=== PATIENT | female | born 1930 | race Caucasian/White ===

== ENCOUNTER 2016-06-12 08:30 | Emergency (ER) | payer MEDICARE, BC ==
[2016-06-12] MEDS ORDERED: Sodium Chloride 0.9% 1000 ML 1,000 ML ONE (08:53)
--- NOTE | 2016-06-12 08:57 | ERPHSYRPT ---
- History of Present Illness Time Seen by Provider: 06/12/16 08:55 Source: patient, family Exam Limitations: no limitations Patient Subjective Stated Complaint: pt reports intermittant dizziness beginning in the middle of the night-denies pain-denies n/v-denies recent illness Triage Nursing Assessment: pt pinkw arm et dry-a & o x 3-pupils reactive-moving all extremities with ease Physician History: pt reports intermittant dizziness beginning in the middle of the night-denies pain-denies n/v-denies recent illness Timing/Duration: today Activities at Onset: none Nitro Today/Relief: no nitro taken today Aspirin Treatment Today: 81 mg x 1 Associated Symptoms: denies symptoms Prior Chest Pain/Cardiac Workup: non-cardiac Allergies/Adverse Reactions: Shellfish *RETIRED-09/12/12 [Shellfish] Allergy (Intermediate, Verified 08:41) Hives meperidine HCl [From Demerol] Allergy (Verified 06/12/16 08:41) metronidazole [From Flagyl] Allergy (Verified 06/12/16 08:41) Penicillins Allergy (Verified 06/12/16 08:41) CRAB Allergy (Uncoded 06/12/16 08:41) Home Medications: Ranitidine HCl 150 mg PO BID 04/19/14 [History] Alprazolam 0.25 mg [xanAX 0.25 MG] 0.25 mg PO TIDPRN 12/19/14 [History] Amlodipine Besylate 10 mg [Norvasc 10 MG] 10 mg PO DAILY 12/19/14 [History] Aspirin EC 325 mg [Ecotrin 325 MG] 325 mg PO DAILY 12/19/14 [History] Atorvastatin Calcium [Lipitor 40Mg] 40 mg PO DAILY 12/19/14 [History] Celecoxib [Celebrex] 200 mg PO DAILY 12/19/14 [History] Diphenoxylate HCl/Atropine [Lomotil] 1 udtab PO UD 12/19/14 [History] Folic Acid 0.8 mg PO DAILY 12/19/14 [History] Hydralazine HCl 10 mg PO TID 12/19/14 [History] Lisinopril 20 mg [Zestril 20 MG] 20 mg PO DAILY 12/19/14 [History] Lisinopril/Hydrochlorothiazide [Lisinopril-Hctz 20-25 mg Tab] 1 each PO DAILY [History] Magnesium Oxide 400 mg [Mag-Ox 400] 800 mg PO BID 12/19/14 [History] Metformin HCl 1000 mg [Glucophage 1000 MG] 1,000 mg PO BID 12/19/14 [History] Montelukast Sodium 10 mg PO DAILY 12/19/14 [History] Potassium Chloride 20 Meq [Klor-Con 20 MEQ] 20 meq PO BID 12/19/14 [History] Hx Tetanus, Diphtheria Vaccination/Date Given: Yes Hx Influenza Vaccination/Date Given: No Hx Pneumococcal Vaccination/Date Given: No Immunizations Up to Date: Yes - Review of Systems Constitutional: No Fever, No Chills Eyes: No Symptoms Ears, Nose, & Throat: No Symptoms Respiratory: No Cough, No Dyspnea Cardiac: No Chest Pain, No Edema, No Syncope Abdominal/Gastrointestinal: No Abdominal Pain, No Nausea, No Vomiting, No Diarrhea Genitourinary Symptoms: No Dysuria Musculoskeletal: No Back Pain, No Neck Pain Skin: No Rash Neurological: Dizziness, No Focal Weakness, No Sensory Changes Psychological: No Symptoms Endocrine: No Symptoms All Other Systems: Reviewed and Negative - Past Medical History Pertinent Past Medical History: Yes Neurological History: No Pertinent History ENT History: No Pertinent History Cardiac History: Arrhythmia Respiratory History: CHF Endocrine Medical History: Diabetes Type II Musculoskeletal History: Arthritis GI Medical History: Diverticulitis History: No Pertinent History Psycho-Social History: Anxiety, Depression Female Reproductive Disorders: No Pertinent History Other Medical History: miasthenia gravis - Past Surgical History Past Surgical History: Yes Neuro Surgical History: No Pertinent History Cardiac: No Pertinent History Respiratory: No Pertinent History Gastrointestinal: Cholecystectomy Genitourinary: No Pertinent History Musculoskeletal: Orthopedic Surgery Female Surgical History: Hysterectomy Other Surgical History: cataracts, spinal stenosis, rotator cuff - Social History Smoking Status: Never smoker Exposure to second hand smoke: Yes Drug Use: none Patient Lives Alone: No Significant Family History: heart disease, diabetes - Female History Hx Now: No - Nursing Vital Signs Temperature: 98.1 F Temperature Source: Oral Pulse Rate: 64 Respiratory Rate: 18 Pain Intensity: 0 - Physical Exam General Appearance: no apparent distress, alert Eye Exam: PERRL/EOMI, eyes nml inspection Ears, Nose, Throat Exam: normal ENT inspection, moist mucous membranes Neck Exam: normal inspection, non-tender, supple Respiratory Exam: normal breath sounds, lungs clear, No respiratory distress Cardiovascular Exam: regular rate/rhythm, normal heart sounds, No edema Gastrointestinal/Abdomen Exam: soft, No tenderness, No mass Back Exam: normal inspection, No CVA tenderness, No vertebral tenderness Extremity Exam: normal inspection, normal range of motion Neurologic Exam: alert, oriented x 3, cooperative, normal mood/affect, nml cerebellar function, sensation nml, No motor deficits Skin Exam: normal color, warm, dry Lymphatic Exam: No adenopathy SpO2: 97 Oxygen Delivery: Room Air - Course Nursing assessment & vital signs reviewed: Yes - Radiology Exams Chest X-ray Interpretation: Reviewed by me Ordered Tests: Active Orders 24 hr Category Date Time Status EKG-ER Only STAT Care 06/12/16 08:50 Active IV Insertion STAT Care 06/12/16 08:57 Active Oxygen-ED Only NASAL CANNULA 2 lpm Care 06/12/16 08:48 Active CHEST 1 VIEW (PORTABLE) Stat Exams 06/12/16 08:49 Taken CBC W DIFF Stat Lab 06/12/16 09:04 Completed CMP Stat Lab 06/12/16 09:04 Completed Manual Differential NC Stat Lab 06/12/16 09:04 Completed NT PRO BNP Stat Lab 06/12/16 09:04 Completed TROPONIN Q3H Lab 06/12/16 09:04 Completed TROPONIN Q3H Lab 06/12/16 12:00 Ordered TROPONIN Q3H Lab 06/12/16 15:00 Ordered TROPONIN Q3H Lab 06/12/16 18:00 Ordered TROPONIN Q3H Lab 06/12/16 21:00 Ordered Medication Summary Generic Name Dose Route Start Last Admin Trade Name Freq PRN Reason Stop Dose Admin Sodium Chloride 1,000 mls @ 50 mls/hr 06/12/16 09:00 06/12/16 08:54 Sodium Chloride 0.9% 1000 Ml IV 07/12/16 08:59 50 mls/hr .Q20H XENIA Administration Discontinued Medications Generic Name Dose Route Start Last Admin Trade Name Freq PRN Reason Stop Dose Admin Sodium Chloride Confirm 06/12/16 08:53 Sodium Chloride 0.9% 1000 Ml Administered 06/12/16 08:54 Dose 1,000 mls @ ud .ROUTE .STK-MED ONE Lab/Rad Data: Laboratory Result Diagrams 06/12/16 09:04 06/12/16 09:04 Laboratory Results 06/12/16 06/12/16 06/12/16 Range/Units 09:04 09:04 09:04 WBC 8.5 (4.0-10.5) K/mm3 RBC 4.12 (4.1-5.4) M/mm3 Hgb 9.6 L (12.0-16.0) gm/dl Hct 33.3 L (35-47) % MCV 80.8 (78-100) fl MCH 23.3 L (26-32) pg MCHC 28.8 L (32-36) g/dl RDW 17.0 H (11.5-14.0) % Plt Count 471 H (150-450) K/mm3 MPV 9.9 H (6-9.5) fl Sodium 143 (136-145) mEq/L Potassium 4.0 (3.5-5.1) mEq/L Chloride 106 (98-107) mEq/L Carbon Dioxide 28.7 (21-32) mEq/L Anion Gap 12.6 (5-15) MEQ/L BUN 23 H (9-20) mg/dL Creatinine 0.81 (0.55-1.30) mg/dl Estimated GFR > 60 ML/MIN Glucose 125 H (70-110) MG/DL Calcium 9.1 (8.5-10.1) mg/dL Total Bilirubin 0.3 (0.2-1.0) mg/dL AST 16 (15-37) U/L ALT 15 (12-78) U/L Alkaline Phosphatase 82 (46-116) U/L Troponin I < 0.017 (0.000-0.056) ng/ml NT-Pro-B Natriuret Pep 371 (0-450) pg/ml Serum Total Protein 6.4 (6.4-8.2) gm/dL Albumin 3.3 L (3.4-5.0) g/dL - Progress Progress: improved Air Movement: good Blood Culture(s) Obtained: No Antibiotics given: No Counseled pt/family regarding: lab results, diagnosis, need for follow-up, rad results - Departure Time of Disposition: 10:12 Departure Disposition: Home Clinical Impression: Dizziness and giddiness, Bradyarrhythmia Condition: Stable Critical Care Time: Yes Critical Care Time(excluding separately billable procedures): 30-74 minutes Referrals: FERDINAND WHALEN [Primary Care Provider] - Additional Instructions: Please follow the instructions given to you. Please take your medication as prescribed if given. If symptoms recur or get worse, come back to the emergency room if you cannot reach your primary care physician, or call your primary care physician for an appointment. Again if your symptoms get worse, come back to the emergency room. Thanks for visiting emergency room, and let us take care of you. Prescriptions: Meclizine HCl 25 mg [Antivert 25 mg] 25 mg PO TID PRN #30 tablet PRN Reason: Dizziness
[2016-06-12] MEDS ORDERED: Sodium Chloride 0.9% 1000 ML 1,000 ML IV SCH (09:00)
[2016-06-12 09:11] LABS: Mean Cell Volume 80.8 fl (78-100); Mean Corpuscular Hemoglobin 23.3 pg (26-32); Mean Platelet Volume 9.9 fl (6-9.5); Platelet Count 471 K/mm3 (150-450); Red Blood Count 4.12 M/mm3 (4.1-5.4); White Blood Count 8.5 K/mm3 (4.0-10.5)
[2016-06-12 09:34] LABS: ALBUMIN 3.3 g/dL (3.4-5.0); ALKALINE PHOSPHATASE 82 U/L (46-116); ANION GAP 12.6 MEQ/L (5-15); BILIRUBIN,TOTAL 0.3 mg/dL (0.2-1.0); BLOOD UREA NITROGEN 23 mg/dL (9-20); CHLORIDE 106 mEq/L (98-107); Carbon Dioxide 28.7 mEq/L (21-32); Glucose 125 MG/DL (70-110); SGOT/AST 16 U/L (15-37); SGPT/ALT 15 U/L (12-78); SODIUM 143 mEq/L (136-145); Total Protein 6.4 gm/dL (6.4-8.2)
--- NOTE | 2016-06-12 10:11 | XRAY ---
Indication: Dizziness. Comparison: December 19, 2014 Portable chest adequately inflated again with scattered calcified granulomas. No focal infiltrate, consolidation, or large effusion. Heart is not enlarged for AP portable technique. New left-sided dual-lead pacemaker. Descending aorta remains tortuous. Bony thorax intact again with osteopenia and degenerative changes. Impression: Nonacute chest with chronic features. New left-sided pacemaker/leads without complications.
[2016-06-12 10:12] VITALS: O2SAT 97
[2016-06-12 10:20] LABS: ANISOCYTOSIS 1+; Eosinophil 1 % (0.00-3.0); Hypochromia 2+; Microcytosis 1+; Platelet Estimate INCREASED (NORMAL); Polychromasia 1+; Total Cells Counted 100
[2016-06-12 10:37] VITALS: BP 131/65; PULSE 79
== END 2016-06-12 10:36 | disposition home or self-care (01) ==
LOC: ED 08:30
DX: R42 Dizziness and giddiness (principal); I49.8 Other specified cardiac arrhythmias; E11.9 Type 2 diabetes mellitus without complications; I50.9 Heart failure, unspecified
CPT/HCPCS: 36000; 36415; 71010; 80053; 83880; 84484; 85025; 93005; 96360; 99283

== ENCOUNTER 2016-06-24 08:51 | Observation (INO) | payer MEDICARE, BC ==
[2016-06-24] MEDS ORDERED: Zofran 4 MG/2 ML VIAL IV ONE (08:54)
[2016-06-24] MEDS ORDERED: Hydromorphone 1 mg/ml Ampule IV ONE (08:56)
--- NOTE | 2016-06-24 09:02 | ERPHSYRPT ---
- History of Present Illness Time Seen by Provider: 06/24/16 08:54 Historian: patient, family, EMS, old records Exam Limitations: no limitations Physician History: patient presents by EMS with CC of abdominal cramps with Nausea and no BM or gas passing for 12-24 hours; usually has loose stools chronically; also some dizziness intermittantly which is old; chills but no documented fever; no travel ; uses city water; no known exposures; no changes in meds; no chest pain or sob ; hasnt taken meds or eaten since OJ at 9 pm last night; no bad foods Timing/Duration: yesterday, hour(s) (12-24), intermittent, gradual onset, worse Activities at Onset: rest Quality: cramping Abdominal Pain Onset Location: generalized abdomen Pain Radiation: no radiation Severity of Pain-Max: moderate Severity of Pain-Current: moderate (10/29) Modifying Factors: Improves With: palpation Associated Symptoms: fever/chills, loss of appetite, nausea Previous symptoms: no prior history Allergies/Adverse Reactions: Shellfish *RETIRED-09/12/12 [Shellfish] Allergy (Intermediate, Verified 09:04) Hives meperidine HCl [From Demerol] Allergy (Verified 06/24/16 09:04) metronidazole [From Flagyl] Allergy (Verified 06/24/16 09:04) Penicillins Allergy (Verified 06/24/16 09:04) CRAB Allergy (Uncoded 06/24/16 09:04) Home Medications: Alprazolam 0.25 mg [xanAX 0.25 MG] 0.25 mg PO TIDPRN 12/19/14 [History] Amlodipine Besylate 10 mg [Norvasc 10 MG] 10 mg PO DAILY 12/19/14 [History] Aspirin EC 325 mg [Ecotrin 325 MG] 325 mg PO DAILY 12/19/14 [History] Celecoxib [Celebrex] 200 mg PO DAILY 12/19/14 [History] Folic Acid 0.8 mg PO DAILY 12/19/14 [History] Lisinopril/Hydrochlorothiazide [Lisinopril-Hctz 20-25 mg Tab] 1 each PO DAILY [History] Magnesium Oxide 400 mg [Mag-Ox 400] 800 mg PO BID 12/19/14 [History] Metformin HCl 1000 mg [Glucophage 1000 MG] 1,000 mg PO BID 12/19/14 [History] Montelukast Sodium 10 mg PO DAILY 12/19/14 [History] Potassium Chloride 20 Meq [Klor-Con 20 MEQ] 20 meq PO BID 12/19/14 [History] Apixaban [Eliquis] 5 mg PO BID 06/24/16 [History] Isosorbide Mononitrate 30 mg [Imdur 30 MG] 30 mg PO DAILY 06/24/16 [History ] Hx Tetanus, Diphtheria Vaccination/Date Given: Yes Hx Influenza Vaccination/Date Given: No Hx Pneumococcal Vaccination/Date Given: No - Review of Systems Constitutional: Chills, No Night Sweats, No Weight Loss Eyes: No Symptoms Ears, Nose, & Throat: No Symptoms Respiratory: No Cough, No Cyanosis, No Dyspnea, No Wheezing Cardiac: Edema (chronic), No Chest Pain, No Palpitations, No Syncope Abdominal/Gastrointestinal: Abdominal Pain, Nausea, Constipation, No Vomiting, No Diarrhea, No Hematemesis, No Hematochezia, No Melena Genitourinary Symptoms: No Symptoms Musculoskeletal: Arthralgias, No Back Pain, No Neck Pain, No Fall, No Injury Skin: No Symptoms Neurological: Dizziness (chronic no change), No Focal Weakness, No Headache, No Seizure, No Vertigo Psychological: No Symptoms Endocrine: No Symptoms Hematologic/Lymphatic: No Symptoms Immunological/Allergic: No Symptoms - Past Medical History Pertinent Past Medical History: Yes Neurological History: No Pertinent History ENT History: No Pertinent History Cardiac History: Arrhythmia Respiratory History: CHF Endocrine Medical History: Diabetes Type II Musculoskeletal History: Arthritis GI Medical History: Diverticulitis History: No Pertinent History Psycho-Social History: Anxiety, Depression Female Reproductive Disorders: No Pertinent History Other Medical History: miasthenia gravis - Past Surgical History Past Surgical History: Yes Neuro Surgical History: No Pertinent History Cardiac: No Pertinent History Respiratory: No Pertinent History Gastrointestinal: Cholecystectomy Genitourinary: No Pertinent History Musculoskeletal: Orthopedic Surgery Female Surgical History: Hysterectomy Other Surgical History: cataracts, spinal stenosis, rotator cuff - Social History Smoking Status: Never smoker Exposure to second hand smoke: Yes Alcohol Use: None Drug Use: none Patient Lives Alone: No Significant Family History: heart disease, diabetes - Female History Hx Now: No - Nursing Vital Signs Nursing Vital Signs: Initial Vital Signs Temperature 98.8 F Temperature Source Oral Pulse Rate 73 Respiratory Rate 22 Blood Pressure [] 124/65 Pain Intensity 3 - Physical Exam General Appearance: moderate distress, alert, obese Eye Exam: PERRL/EOMI, eyes nml inspection, No photophobia Ears, Nose, Throat Exam: normal ENT inspection, TMs normal, pharynx normal, dry mucous membranes, No pharyngeal erythema Neck Exam: normal inspection, non-tender, supple, full range of motion, No meningismus, No carotid bruit, No JVD Respiratory Exam: normal breath sounds, lungs clear, airway intact, crackles/ rales (faint minimal bibasilar), No chest tenderness, No respiratory distress, No pleural rub Cardiovascular Exam: regular rate/rhythm, normal heart sounds, normal peripheral pulses, murmur (1/6 crystal early), capillary refill 2-3 sec, No friction rub Gastrointestinal/Abdomen Exam: soft, tenderness (mild - moderate; diffuse), distention (mild), guarding (active only), No normal bowel sounds (hypoactive), No mass, No pulsatile mass, No rebound, No organomegaly Pelvic Exam: deferred Rectal Exam: normal exam, normal rectal tone, No mass, No hemorrhoids, No black stool, No blood Back Exam: normal inspection, normal range of motion, No CVA tenderness, No vertebral tenderness, No rash Extremity Exam: normal inspection, normal range of motion, pelvis stable, pedal edema, No tejas's sign Neurologic Exam: alert, oriented x 3, cooperative, yard caller II-XII nml as tested, normal mood/affect, nml cerebellar function Skin Exam: normal color, warm, dry, No rash, No petechiae, No cyanosis - Course Nursing assessment & vital signs reviewed: Yes EKG Interpreted by Me: RATE (paced rhythm 60) - Radiology Exams Abdomen X-ray Interpretation: Reviewed by me, Teleradiologist Report, Other (mild ileus vs enterocolits) Ordered Tests: Active Orders 24 hr Category Date Time Status Bedrest with BRP/BSC ROUTINE Activity 06/24/16 11:35 Active Admission/Status Order ROUTINE Care 06/24/16 11:33 Active Call Admit Doctor for Orders ON ADMISSION Care 06/24/16 11:34 Active Code Status Order ROUTINE Care 06/24/16 11:33 Active EKG-ER Only STAT Care 06/24/16 08:54 Active Fall Protocol ROUTINE Care 06/24/16 11:35 Active IV Care Q6H Care 06/24/16 11:33 Active IV Insertion STAT Care 06/24/16 08:54 Active NPO (ED) STAT Care 06/24/16 08:54 Active Lance Vargas, Apply ROUTINE Care 06/24/16 11:33 Active Weight,Daily 0600 Care 06/24/16 11:33 Active Clear Liquid Diet 06/24/16 Lunch Active OBSTR/ACUTE ABDOMEN SERIES Stat Exams 06/24/16 08:55 Completed AMYLASE Stat Lab 06/24/16 09:10 Completed CBC W DIFF Stat Lab 06/24/16 09:10 Completed CMP Stat Lab 06/24/16 09:10 Completed LIPASE Stat Lab 06/24/16 09:10 Completed Lactic Acid Stat Lab 06/24/16 11:38 Completed Occult Blood,Stool Other Stat Lab 06/24/16 09:00 Completed TROPONIN Stat Lab 06/24/16 09:10 Completed Transfer Order Routine Transfer 06/24/16 11:32 Ordered Medication Summary Generic Name Dose Route Start Last Admin Trade Name Freq PRN Reason Stop Dose Admin Hydromorphone HCl 1 mg 06/24/16 11:33 Dilaudid 2 Mg Injection IV 06/29/16 11:32 Q4H PRN PRN PAIN Sodium Chloride 1,000 mls @ 100 mls/hr 06/24/16 09:00 06/24/16 09:39 Sodium Chloride 0.9% 1000 Ml IV 07/24/16 08:59 100 mls/hr .Q10H XENIA Administration Ondansetron HCl 4 mg 06/24/16 11:33 Zofran 4 Mg/2 Ml Vial IV 07/24/16 11:32 Q6H PRN PRN NAUSEA/VOMITING Discontinued Medications Generic Name Dose Route Start Last Admin Trade Name Freq PRN Reason Stop Dose Admin Hydromorphone HCl 0.5 mg 06/24/16 08:56 06/24/16 09:39 Hydromorphone 1 Mg/Ml Ampule IV 06/24/16 08:57 0.5 mg STAT ONE Administration Hydromorphone HCl Confirm 06/24/16 09:21 Hydromorphone 1 Mg/Ml Ampule Administered 06/24/16 09:22 Dose 1 mg .ROUTE .STK-MED ONE Sodium Chloride Confirm 06/24/16 09:21 Sodium Chloride 0.9% 1000 Ml Administered 06/24/16 09:22 Dose 1,000 mls @ ud .ROUTE .STK-MED ONE Ondansetron HCl 4 mg 06/24/16 08:54 06/24/16 09:39 Zofran 4 Mg/2 Ml Vial IV 06/24/16 08:55 4 mg STAT ONE Administration Ondansetron HCl Confirm 06/24/16 09:20 Zofran 4 Mg/2 Ml Vial Administered 06/24/16 09:21 Dose 4 mg .ROUTE .STK-MED ONE Lab/Rad Data: Laboratory Result Diagrams 06/24/16 09:10 06/24/16 09:10 Laboratory Results 06/24/16 06/24/16 06/24/16 Range/Units 11:38 09:10 09:10 WBC 16.4 H (4.0-10.5) K/mm3 RBC 4.35 (4.1-5.4) M/mm3 Hgb 10.1 L (12.0-16.0) gm/dl Hct 34.5 L (35-47) % MCV 79.3 (78-100) fl MCH 23.2 L (26-32) pg MCHC 29.3 L (32-36) g/dl RDW 17.1 H (11.5-14.0) % Plt Count 526 H (150-450) K/mm3 MPV 9.5 (6-9.5) fl Gran % 85.9 H (36.0-66.0) % Lymphocytes % 7.5 L (24.0-44.0) % Monocytes % 6.3 (0.0-12.0) % Eosinophils % 0.2 (0.00-5.0) % Basophils % 0.1 (0.0-0.4) % Basophils # 0.02 (0-0.4) Sodium 140 (136-145) mEq/L Potassium 4.1 (3.5-5.1) mEq/L Chloride 103 (98-107) mEq/L Carbon Dioxide 27.0 (21-32) mEq/L Anion Gap 14.0 (5-15) MEQ/L BUN 21 H (9-20) mg/dL Creatinine 0.88 (0.55-1.30) mg/dl Estimated GFR > 60 ML/MIN Glucose 155 H (70-110) MG/DL Lactic Acid 1.3 (0.4-2.0) Calcium 8.7 (8.5-10.1) mg/dL Total Bilirubin 0.4 (0.2-1.0) mg/dL AST 16 (15-37) U/L ALT 15 (12-78) U/L Alkaline Phosphatase 86 (46-116) U/L Troponin I < 0.017 (0.000-0.056) ng/ml Serum Total Protein 6.0 L (6.4-8.2) gm/dL Albumin 3.0 L (3.4-5.0) g/dL Amylase 42 (25-115) U/L Lipase 54 L (73-393) U/L Stool Occult Blood (Negative) 06/24/16 Range/Units 09:00 WBC (4.0-10.5) K/mm3 RBC (4.1-5.4) M/mm3 Hgb (12.0-16.0) gm/dl Hct (35-47) % MCV (78-100) fl MCH (26-32) pg MCHC (32-36) g/dl RDW (11.5-14.0) % Plt Count (150-450) K/mm3 MPV (6-9.5) fl Gran % (36.0-66.0) % Lymphocytes % (24.0-44.0) % Monocytes % (0.0-12.0) % Eosinophils % (0.00-5.0) % Basophils % (0.0-0.4) % Basophils # (0-0.4) Sodium (136-145) mEq/L Potassium (3.5-5.1) mEq/L Chloride (98-107) mEq/L Carbon Dioxide (21-32) mEq/L Anion Gap (5-15) MEQ/L BUN (9-20) mg/dL Creatinine (0.55-1.30) mg/dl Estimated GFR ML/MIN Glucose (70-110) MG/DL Lactic Acid (0.4-2.0) Calcium (8.5-10.1) mg/dL Total Bilirubin (0.2-1.0) mg/dL AST (15-37) U/L ALT (12-78) U/L Alkaline Phosphatase (46-116) U/L Troponin I (0.000-0.056) ng/ml Serum Total Protein (6.4-8.2) gm/dL Albumin (3.4-5.0) g/dL Amylase (25-115) U/L Lipase (73-393) U/L Stool Occult Blood POSITIVE (Negative) reviewed - Progress Progress: improved (after zofran), pain not gone completely, re-examined (after meds and xr) Progress Note: 06/24/16 09:09 IV started; meds ordered; lab and xr pending; rectal exam done- unremarkable - small amount soft brown stool; ekg and xr pending; will monitor and recheck 06/24/16 09:25 CBC shows elevated wbc of 16.4 and anemia H/H= 10.1/34.5; stool heme positive by test but appeared wnl; patient in xr 06/24/16 09:37 recheck post xr; family at bedside; no change in cramps but Nausea gone; hasn;t received the Dilaudid yet; RN getting now; xr mild ileus vs enterocolits; other labs pending; will monitor and recheck 06/24/16 10:54 patient resting quietly; labs all back; pain resolved; will contact lmd for disposition 06/24/16 11:44 lactate came back wnl at 1.3; Dr Dia consulted and accepted for admission; will order ATBs; after consulting with Pharmacy due to PCN and Metranidazole allergies elected to start Clindamycin 600 mg Q 8 h IV; patient notified of admission and results and questions answered Discussed with .: Ifeoma (consulted and will admit) Will see patient in: hospital (observation) Counseled pt/family regarding: lab results, diagnosis, need for follow-up, rad results - Departure Time of Disposition: 11:46 Departure Disposition: Observation Clinical Impression: Nausea, Pedal edema, Epigastric pain, Abdominal pain, Acute diverticulitis Condition: Serious Critical Care Time: No Referrals: FERDINAND DIA [Primary Care Provider] - Instructions: Abdominal Pain-Adult
[2016-06-24] MEDS ORDERED: Zofran 4 MG/2 ML VIAL ONE (09:20)
[2016-06-24 09:21] LABS: BASOPHIL % 0.1 % (0.0-0.4); Eosinophil % 0.2 % (0.00-5.0); Granulocytes % 85.9 % (36.0-66.0); Lymphocytes % 7.5 % (24.0-44.0); Mean Cell Volume 79.3 fl (78-100); Mean Corpuscular Hemoglobin 23.2 pg (26-32); Mean Platelet Volume 9.5 fl (6-9.5); Monocytes % 6.3 % (0.0-12.0); Platelet Count 526 K/mm3 (150-450); Red Blood Count 4.35 M/mm3 (4.1-5.4); Red Cell Distribution Width 17.1 % (11.5-14.0); White Blood Count 16.4 K/mm3 (4.0-10.5)
[2016-06-24] MEDS ORDERED: Hydromorphone 1 mg/ml Ampule ONE (09:21)
[2016-06-24] MEDS ORDERED: Sodium Chloride 0.9% 1000 ML 1,000 ML ONE (09:21)
--- NOTE | 2016-06-24 09:38 | XRAY ---
Indication: Abdominal pain, cramping, and nausea. Comparison: Chest exam June 12, 2016 2 views of the abdomen demonstrates minimal scattered small and large bowel tiny air-fluid leveling, ileus versus enterocolitis. No focal bowel dilatation, obstruction, or free air. Hepatic/splenic calcified granulomas. Remaining solid organs unremarkable. Osseous structures demonstrates osteopenia, degenerative changes, scoliosis, and lower lumbar fusion surgery with intact spinal hardware. Single frontal chest again demonstrates scattered calcified granulomas without focal infiltrate, consolidation, or large effusion. Heart is not enlarged and demonstrates stable left-sided dual-lead pacemaker. Vascularity normal. Descending aorta remains tortuous. Bony thorax intact again with osteopenia and degenerative changes. Impression: 1. Small and large bowel tiny air-fluid leveling, ileus versus enterocolitis. No obstruction. 2. Stable nonacute one view chest with chronic features.
[2016-06-24 09:39] LABS: ALKALINE PHOSPHATASE 86 U/L (46-116); BILIRUBIN,TOTAL 0.4 mg/dL (0.2-1.0); BLOOD UREA NITROGEN 21 mg/dL (9-20); CHLORIDE 103 mEq/L (98-107); Glucose 155 MG/DL (70-110); LIPASE 54 U/L (73-393); Potassium 4.1 mEq/L (3.5-5.1); SGOT/AST 16 U/L (15-37); SGPT/ALT 15 U/L (12-78); SODIUM 140 mEq/L (136-145)
[2016-06-24] MEDS: Sodium Chloride 0.9% 1000 ML 1,000 ML IV SCH ×2 (09:39→21:08)
[2016-06-24 09:40] LABS: TROPONIN < 0.017 ng/ml (0.000-0.056)
[2016-06-24] MEDS ORDERED: DILAUDID 2 MG INJECTION IV PRN (11:33)
[2016-06-24] MEDS ORDERED: Zofran 4 MG/2 ML VIAL IV PRN (11:33)
[2016-06-24] MEDS: CLINDAMYCIN-D5W 600 MG/50 ML*** 50 ML IV SCH ×2 (13:03→21:08)
[2016-06-24] MEDS ORDERED: Cleocin Phosphate IV 600 MG/4 ML IV SCH (14:00)
[2016-06-24] MEDS ORDERED: xanAX 0.25 MG PO PRN (17:15)
[2016-06-24] MEDS: Ecotrin 325 MG PO SCH (17:36)
[2016-06-24] MEDS: Imdur 30 MG PO SCH (17:36)
[2016-06-24] MEDS: Zestril 20 MG PO SCH (17:37)
[2016-06-24] MEDS: hydroDIURIL 25 MG PO SCH (17:37)
[2016-06-24] MEDS: NORVASC 5 MG PO SCH (17:37)
--- NOTE | 2016-06-24 18:59 | PCM.HP ---
History of Present Illness - Chief Complaint Chief Complaint: Abdominal pain History of Present Illness: is a 85 year old female pt of mine from [facility] who started having abdominal discomfort yesterday. She had been to see me in office in the morning for unrelated issues and felt worse all day and night and came to ER today. She is c/o LLQ pain but soreness that is diffuse. She has not been eating well and was not able to pass gas or stool since yesterday. She tried to vomit but was unable to. XR was suspicious for ileus or enterocolitis. She does have a history of diverticulitis. Pt is allergic to several antibiotics so was started on IV clindamycin. This afternoon she tells me she is feeling much better than she did this morning. 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, seeing neurology in f/u soon) Psychological: Anxiety, Depression, No Suicidal Ideations All Other Systems: Reviewed and Negative Medications & Allergies Home Medications: Home Medication List Alprazolam 0.25 mg [xanAX 0.25 MG] 0.25 mg PO TIDPRN 12/19/14 [History Confirmed 06/24/16] Amlodipine Besylate 10 mg [Norvasc 10 MG] 10 mg PO DAILY 12/19/14 [History Confirmed 06/24/16] Aspirin EC 325 mg [Ecotrin 325 MG] 325 mg PO DAILY 12/19/14 [History Confirmed 06/24/16] Celecoxib [Celebrex] 200 mg PO DAILY 12/19/14 [History Confirmed 06/24/16] Folic Acid 0.8 mg PO DAILY 12/19/14 [History Confirmed 06/24/16] Lisinopril/Hydrochlorothiazide [Lisinopril-Hctz 20-25 mg Tab] 1 each PO DAILY [History Confirmed 06/24/16] Magnesium Oxide 400 mg [Mag-Ox 400] 800 mg PO BID 12/19/14 [History Confirmed 06/24/16] Metformin HCl 1000 mg [Glucophage 1000 MG] 1,000 mg PO BID 12/19/14 [History Confirmed 06/24/16] Montelukast Sodium 10 mg PO DAILY 12/19/14 [History Confirmed 06/24/16] Potassium Chloride 20 Meq [Klor-Con 20 MEQ] 20 meq PO BID 12/19/14 [History Confirmed 06/24/16] Apixaban [Eliquis] 5 mg PO BID 06/24/16 [History Confirmed 06/24/16] Isosorbide Mononitrate 30 mg [Imdur 30 MG] 30 mg PO DAILY 06/24/16 [ History Confirmed 06/24/16] Omeprazole 20 MG [Prilosec 20 mg] 20 mg PO DAILY 06/24/16 [History Confirmed 08/05] Allergies/Adverse Reactions: Allergies Allergy/AdvReac Type Severity Reaction Status Date / Time Shellfish *RETIRED-09/12/12 Allergy Intermediate Hives Verified 06/24/16 09:04 [Shellfish] meperidine HCl [From Demerol] Allergy Verified 06/24/16 09:04 metronidazole [From Flagyl] Allergy Verified 06/24/16 09:04 Penicillins Allergy Verified 06/24/16 09:04 hydralazine AdvReac Verified 06/24/16 12:23 CRAB Allergy Uncoded 06/24/16 09:04 - Past Medical History Past Medical History: Yes Neurological History: No Pertinent History ENT History: Cataracts Cardiac History: Arrhythmia Respiratory History: CHF Endocrine Medical History: Diabetes Type II Musculoskelatal History: Arthritis GI Medical History: Diverticulitis History: No Pertinent History Pyscho-Social History: Anxiety, Depression Reproductive Disorders: Fibroids Comment: miasthenia gravis - Female History Are you now?: No - Past Surgical History Past Surgical History: Yes Neuro Surgical History: No Pertinent History Cardiac History: Pacemaker Respiratory Surgery: No Pertinent History GI Surgical History: Appendectomy, Cholecystectomy Genitourinary Surgical Hx: No Pertinent History Musculskeletal Surgical Hx: Orthopedic Surgery Female Surgical History: Hysterectomy Other Surgical History: spinal stenosis surgery, rotator cuff right arm - Social History Smoking Status: Never smoker Exposure to second hand smoke: No Alcohol: Rarely Drug Use: none Significant Family History: heart disease, diabetes - Physical Exam Vital Signs: Vital Signs - 24 hr Temp Pulse Resp BP Pulse Ox 06/24/16 16:00 99.8 F 69 17 146/67 96 06/24/16 12:10 98.2 F 76 18 155/66 95 06/24/16 11:07 73 22 124/65 96 06/24/16 10:29 68 22 95 06/24/16 09:46 60 18 118/59 96 06/24/16 08:52 98.8 F 65 22 137/63 96 General Appearance: no apparent distress Neurologic Exam: alert, oriented x 3 Eye Exam: eyes nml inspection Neck Exam: normal inspection, non-tender, No lymphadenopathy Respiratory Exam: normal breath sounds, lungs clear, No crackles/rales, No rhonchi, No wheezing, No stridor Cardiovascular Exam: regular rate/rhythm, normal heart sounds, No murmur Gastrointestinal/Abdomen Exam: soft, normal bowel sounds, tenderness (diffuse, more marked in LLQ), No distention, No mass, No guarding, No rebound Back Exam: normal inspection, No CVA tenderness Extremity Exam: swelling (Trace pretibial edema bilat) Skin Exam: normal color, warm, dry Assessment/Plan (1) Acute diverticulitis Current Visit: Yes Status: Acute Assessment & Plan: IV clindamycin. Pt is feeling better and does not appear acutely ill. Lactate wnl. Code(s): K57.92 - DVTRCLI OF INTEST, PART UNSP, W/O PERF OR ABSCESS W/O BLEED (2) Abdominal pain Current Visit: Yes Status: Acute Assessment & Plan: Question of ileus. Also divertiulitis as above. Code(s): R10.9 - UNSPECIFIED ABDOMINAL PAIN (3) Dizziness and giddiness Current Visit: No Status: Chronic Assessment & Plan: Has been treated by neurology for BPPV with some success in the past; pt to f/u with them. Code(s): R42 - DIZZINESS AND GIDDINESS (4) Hypertension Current Visit: Yes Status: Chronic Assessment & Plan: Well controlled on home meds. Code(s): I10 - ESSENTIAL (PRIMARY) HYPERTENSION (5) DVT prophylaxis Current Visit: Yes Status: Acute Assessment & Plan: on eliquis and aspirin. Code(s): DKN0368 -
[2016-06-24] MEDS: TYLENOL EXTRA STRENGTH 500 MG PO PRN (21:08)
[2016-06-24] MEDS: ELIQUIS PO SCH (21:08)
[2016-06-25] MEDS: CLINDAMYCIN-D5W 600 MG/50 ML*** 50 ML IV SCH ×3 (05:22→21:33)
[2016-06-25] MEDS: hydroDIURIL 25 MG PO SCH (09:32)
[2016-06-25] MEDS: Zestril 20 MG PO SCH (09:32)
[2016-06-25] MEDS: Ecotrin 325 MG PO SCH (09:32)
[2016-06-25] MEDS: Imdur 30 MG PO SCH (09:32)
[2016-06-25] MEDS: NORVASC 5 MG PO SCH (09:32)
[2016-06-25] MEDS: ELIQUIS PO SCH ×2 (09:32→21:33)
[2016-06-25] MEDS: Sodium Chloride 0.9% 1000 ML 1,000 ML IV SCH (09:33)
[2016-06-25] MEDS ORDERED: NON-FORMULARY ITEM (Lisinopril/Hydrochlorothiazide [Lisinopril-Hctz 20-25 Mg Tab] 1 EACH) PO SCH (10:00)
[2016-06-25] MEDS ORDERED: NON-FORMULARY ITEM (Amlodipine Besylate 10 Mg [Norvasc 10 Mg] 10 MG) PO SCH (10:00)
--- NOTE | 2016-06-25 10:00 | PCM.NOTE ---
Date and Time: 06/25/16956 Subjective Assessment: She reports she is having more gas pain in her left lower quadrant than she was last night. She reports she had a stool yesterday that was the consistancy of applesauce which is normal for her and denies seeing any blood in her stool. She feels like her pain is under control. She has been taking a clear liquid diet without any problems. - Review of Systems Constitutional: No Symptoms Eyes: No Symptoms Ears, Nose, & Throat: No Symptoms Respiratory: No Symptoms Cardiac: No Symptoms Abdominal/Gastrointestinal: Abdominal Pain, Diarrhea, Other (chronic diarrhea), No Nausea, No Vomiting, No Constipation, No Hematochezia Genitourinary Symptoms: No Symptoms Musculoskeletal: No Symptoms Skin: No Symptoms Neurological: No Symptoms Objective Exam General Appearance: no apparent distress, alert Neurologic Exam: alert, cooperative, normal mood/affect Skin Exam: normal color, warm, dry, No rash Respiratory Exam: normal breath sounds, lungs clear, No prolonged expirations, No crackles/rales, No rhonchi, No wheezing Cardiovascular Exam: regular rate/rhythm, normal heart sounds, No murmur, No friction rub, No gallop Gastrointestinal/Abdomen Exam: soft, normal bowel sounds, No tenderness, No distention, No mass, No guarding Extremity Exam: other (trace edema bilat, no c/c) OBJECTIVE DATA Vital Signs: Vital Signs - 24 hr Temp Pulse Resp BP Pulse Ox 06/25/16 07:15 98.1 F 64 20 111/58 96 06/25/16 03:53 98.5 F 70 20 129/59 92 L 06/24/16 23:43 98.6 F 68 20 103/52 91 L 06/24/16 20:00 98.7 F 61 20 132/63 92 L 06/24/16 16:00 99.8 F 69 17 146/67 96 06/24/16 12:10 98.2 F 76 18 155/66 95 06/24/16 11:07 73 22 124/65 96 06/24/16 10:29 68 22 95 Pain Assessment - Last Documented Pain Intensity 0 Pain Scale Used 0-10 Pain Scale Intake and Output: Intake & Output 06/23/16 06/24/16 06/25/16 06/26/16 06:59 06:59 06:59 06:59 Intake Total 2426 240 Output Total 1800 Balance 626 240 Weight 90.804 kg Lab Results: Accuchecks Date 06/25/16 Time 07:30 Accucheck Value: 97 Multi-Disciplinary Progress Notes: Multi-Disciplinary Progress Notes 06/24/16 12:39 Pharmacy Note by Brant Pitt Patient has allergies to Penicillin and Flagyl. Cleocin, Levaquin and Invanz are possible alternatives for diverticulitis. Initialized on 06/24/16 12:39 - END OF NOTE Assessment/Plan (1) Acute diverticulitis Current Visit: Yes Status: Acute Assessment & Plan: Continue IV clindamycin and plan to change to oral clindamycin when she is discharged. Recheck cbc in AM. Code(s): K57.92 - DVTRCLI OF INTEST, PART UNSP, W/O PERF OR ABSCESS W/O BLEED (2) Hypertension Current Visit: Yes Status: Chronic Assessment & Plan: Currently well controlled. Continue home medication. Code(s): I10 - ESSENTIAL (PRIMARY) HYPERTENSION (3) DVT prophylaxis Current Visit: Yes Status: Acute Assessment & Plan: She is on eliquis and apsirin. Code(s): [id number] -
[2016-06-25] MEDS: TYLENOL EXTRA STRENGTH 500 MG PO PRN ×2 (16:51→21:33)
[2016-06-26 05:38] LABS: Mean Cell Volume 79.5 fl (78-100); Mean Platelet Volume 9.9 fl (6-9.5); Platelet Count 474 K/mm3 (150-450); Red Cell Distribution Width 16.9 % (11.5-14.0); White Blood Count 9.7 K/mm3 (4.0-10.5)
[2016-06-26 05:39] LABS: Mean Corpuscular Hemoglobin 22.8 pg (26-32)
[2016-06-26] MEDS: CLINDAMYCIN-D5W 600 MG/50 ML*** 50 ML IV SCH (05:50)
[2016-06-26 07:06] LABS: Total Cells Counted 100
[2016-06-26 07:07] LABS: ANISOCYTOSIS 1+; Hypochromia 1+; Poikilocytosis 1+
[2016-06-26 07:08] LABS: Platelet Estimate NORMAL (NORMAL); Spherocyte 1+
[2016-06-26] MEDS: hydroDIURIL 25 MG PO SCH (09:25)
[2016-06-26] MEDS: Ecotrin 325 MG PO SCH ×2 (09:25→10:33)
[2016-06-26] MEDS: Imdur 30 MG PO SCH (09:25)
[2016-06-26] MEDS: Zestril 20 MG PO SCH (09:25)
[2016-06-26] MEDS: ELIQUIS PO SCH ×2 (09:25→10:33)
[2016-06-26] MEDS: NORVASC 5 MG PO SCH (09:25)
--- NOTE | 2016-06-26 10:27 | PCM.DCORD ---
- Discharge Discharge Date: 06/26/16 Disposition: Home, Self-Care Condition: Good Prescriptions: New Clindamycin HCl 300 mg PO QID #24 capsule Continue Folic Acid 0.8 mg PO DAILY Aspirin EC 325 mg [Ecotrin 325 MG] 325 mg PO DAILY Potassium Chloride 20 Meq [Klor-Con 20 MEQ] 20 meq PO BID Montelukast Sodium 10 mg PO DAILY Metformin HCl 1000 mg [Glucophage 1000 MG] 1,000 mg PO BID Magnesium Oxide 400 mg [Mag-Ox 400] 800 mg PO BID Lisinopril/Hydrochlorothiazide [Lisinopril-Hctz 20-25 mg Tab] 1 each PO DAILY Celecoxib [Celebrex] 200 mg PO DAILY Amlodipine Besylate 10 mg [Norvasc 10 MG] 10 mg PO DAILY Alprazolam 0.25 mg [xanAX 0.25 MG] 0.25 mg PO TIDPRN Apixaban [Eliquis] 5 mg PO BID Isosorbide Mononitrate 30 mg [Imdur 30 MG] 30 mg PO DAILY Omeprazole 20 MG [Prilosec 20 mg] 20 mg PO DAILY Instructions: Diverticulitis Follow up with: FERDINAND WHALEN [Primary Care Provider] -
[2016-06-26 11:15] VITALS: BP 140/72; PULSE 68; O2SAT 96
--- NOTE | 2016-06-27 09:25 | DS ---
DISCHARGE DIAGNOSIS: 1. ACUTE DIVERTICULITIS. 2. HYPERTENSION. 3. DIZZINESS. 4. ANEMIA. DISCHARGE PHYSICAL EXAM: VITALS: Temperature current 98, temperature maximum 98.4, heart rate 60-71, respiratory rate 18-20, O2 saturation 92-97% on room air, BP 120-159/67-74. GENERAL: The patient is a pleasant, talkative lady lying in bed in no acute distress. CVS: She has a regular rate and rhythm. No murmurs, gallops, or rubs are appreciated. CHEST: Clear to auscultation bilaterally. No crackles or wheezes. ABDOMEN: Soft with mild left lower quadrant tenderness. No guarding. No rigidity. Normal bowel sounds. EXTREMITIES: Trace edema bilaterally. No clubbing or cyanosis. No rashes. SKIN: Warm, dry, and intact. HOSPITAL COURSE: 1. Acute diverticulitis. She was started on clindamycin 600 mg IV q 8 h and has shown improvement in her symptoms of abdominal pain. Will plan to discharge her on clindamycin 300 mg PO qid for 8 more days. Her WBC on admission was 16,400 on 06/24/16 and was 9700 on 06/26/16. She recently had a colonoscopy 09/19/[address] Vu that revealed severe diverticulosis. The patient reports she has been able to eat and have a bowel movement without any problems. 2. Anemia. Her Hgb on the 3rd was 10.1. At time of discharge, it was 8.7. I have asked them to draw iron levels and vitamin B12 level that will need followed up as an outpatient. Her stool was heme-positive. Again, she has had that recent colonoscopy and she is on Eliquis for blood thinners. 3. Hypertension. Her BP was well controlled. She does have some dizziness at home. She was instructed to try to always use her walker when she gets up. Her BP looked good here. However, PCP may want to adjust her medications if she continues to have dizziness. The nurses checked orthostatics and they were normal. 4. Dizziness as above. DISPOSITION: Patient was discharged to home in fair condition. She is to resume all her home medications and also to take clindamycin 300 mg PO qid for 8 days and follow-up with Dr. Dia this coming week.
== END 2016-06-26 11:50 | disposition home or self-care (01) ==
LOC: ED 08:51 → MED SURG 12:00
PROVIDERS: ADMIT Family Medicine; ATTEND Family Medicine
DX: K57.92 Diverticulitis of intestine, part unspecified, without perforation or abscess without bleeding (principal); I10 Essential (primary) hypertension; R42 Dizziness and giddiness; D64.9 Anemia, unspecified; F41.8 Other specified anxiety disorders; E11.9 Type 2 diabetes mellitus without complications; M19.90 Unspecified osteoarthritis, unspecified site; Z79.01 Long term (current) use of anticoagulants; Z79.899 Other long term (current) drug therapy
CPT/HCPCS: 36415; 74022; 80053; 82150; 82272; 82607; 82728; 82962; 83036; 83540; 83550; 83605; 83690; 83921; 84484; 85025; 93005; 96360; 96361; 96374; 96375; 99284; 99285; G0378; J1170; J2405

== ENCOUNTER 2017-10-11 08:07 | Day surgery (SDC) | payer MEDICARE, BC ==
[2017-10-11] MEDS ORDERED: DIPRIVAN 200 MG/20 ML IV ONE (08:08)
[2017-10-11] MEDS ORDERED: Xylocaine 1% Vial 30 ML PF IJ ONE (08:08)
[2017-10-11] MEDS ORDERED: Marcaine 0.5% SDV 10 ML IJ ONE (08:08)
[2017-10-11 09:03] LABS: Hematocrit 50.8 % (35-47); Hemoglobin 16.8 gm/dl (12.0-16.0); Mean Cell Volume 94.1 fl (78-100); Mean Corpuscular Hemoglobin 31.1 pg (26-32); Mean Corpuscular Hgb Concent. 33.1 g/dl (32-36); Mean Platelet Volume 10.7 fl (6-9.5); Platelet Count 296 K/mm3 (150-450); Red Cell Distribution Width 14.9 % (11.5-14.0); White Blood Count 8.1 K/mm3 (4.0-10.5)
[2017-10-11 09:04] LABS: INR 0.98 (0.8-3.0)
[2017-10-11 09:07] LABS: PTT 33.1 SECONDS (25.3-37.0)
[2017-10-11] MEDS ORDERED: Lactated Ringers 1,000 ML IV ONE (09:55)
--- NOTE | 2017-10-12 08:26 | OP ---
DATE OF PROCEDURE: 10/11/2017 0933 SURGEON: Lori Rios D.O. PREOPERATIVE DIAGNOSIS: Degenerative lumbar spine disease, spondylosis, low back pain. POSTOPERATIVE DIAGNOSIS: Degenerative lumbar spine disease, spondylosis, low back pain. PROCEDURE PERFORMED: Right L5, L4, L3 medial branch block under fluoroscopic guidance. DESCRIPTION OF THE PROCEDURE: The patient was taken to the operating room and placed in the prone position on the table. Skin at the injection site was prepped and draped in sterile fashion. Under fluoroscopy, bony anatomy of the targeted injection site was visualized. Induction agent was given as per anesthesia while vital signs were monitored. The local anesthetic agent used is 9 cc 1% lidocaine. Under fluoroscopic guidance, a #20 gauge standard spinal needle was advanced into the target medial branch through the oblique approach. The medication used for this nerve block is 0.5 cc of mix of preservative-free 1% lidocaine plus 0.5% Marcaine to each injection site. After the needle was being removed, the skin was cleansed with alcohol and then a bandage was applied. No complications or adverse consequences were observed. The patient was returned to the holding area until stabilized before discharge to home. Preoperative pain level is 4 out of 10 and postoperative pain level is 0 out of 10. The patient will be followed up within ten days after the injection for re-evaluation.
== END 2017-10-11 10:20 | disposition home or self-care (01) ==
LOC: SDC-PAIN 08:07
PROVIDERS: ATTEND Internal Medicine
DX: M54.5 Low back pain (principal); M51.36 Other intervertebral disc degeneration, lumbar region; M46.96 Unspecified inflammatory spondylopathy, lumbar region; Z79.891 Long term (current) use of opiate analgesic
CPT/HCPCS: 36415; 64493; 64494; 64495; 72020; 77003; 82962; 85027; 85610; 85730; J2001; J2704

== ENCOUNTER 2017-10-15 10:31 | Emergency (ER) | payer MEDICARE, BC ==
[2017-10-15] MEDS ORDERED: TORAdol 30 mg Injection IM ONE (12:03)
--- NOTE | 2017-10-15 12:09 | ERPHSYRPT ---
- History of Present Illness Time Seen by Provider: 10/15/17 11:03 Source: patient, family Exam Limitations: no limitations Patient Subjective Stated Complaint: pt reports laying flat on 10/11/17 for a procedure involving an injection to her spine during which she had some discomfort to the right breast. states she took it easy then mowed the lawn and used the weed eater monday. reports increased pain to the right breast and rib area on the right side. reports pain is increased when lifting her right arm or reaching across her body. denies any injury. Triage Nursing Assessment: pt is aox3, pupils perrl, resps easy and non labored , radial pulses strong and equal. pt is afebrile. skin is pink warm dry. bilat pedal edema noted, that is chronic. no obvious injury appreciated to the right breast or rib area. pt sensation is intact to upper extremities. cap refill <3 seconds. pt has some limited ROM to the upper right extremity due to pain with movement. Physician History: patient developed right breast and rib pain immediately after a procedure where she was laying on her right side and breast for an extended period of time. no sob; no CP except when she palpates the rib or takes a deep breath; has continued for several days and worse this am;no hemoptosis or other trauma Timing/Duration: today (worse), day(s) (5-7) Severity: moderate Modifying Factors: Improves With: movement Associated Symptoms: denies symptoms Allergies/Adverse Reactions: Shellfish *RETIRED-09/12/12 [Shellfish] Allergy (Intermediate, Verified 11:08) Hives meperidine HCl [From Demerol] Allergy (Verified 10/15/17 11:08) metronidazole [From Flagyl] Allergy (Verified 10/15/17 11:08) Penicillins Allergy (Verified 10/15/17 11:08) hydralazine Adverse Reaction (Verified 10/15/17 11:08) CRAB Allergy (Uncoded 10/15/17 11:08) Home Medications: Amlodipine Besylate 10 mg [Norvasc 10 MG] 10 mg PO DAILY 12/19/14 [History] Aspirin EC 325 mg [Ecotrin 325 MG] 325 mg PO DAILY 12/19/14 [History] Celecoxib [Celebrex] 200 mg PO DAILY 12/19/14 [History] Folic Acid 0.8 mg PO DAILY 12/19/14 [History] Lisinopril/Hydrochlorothiazide [Lisinopril-Hctz 20-25 mg Tab] 1 each PO DAILY [History] Magnesium Oxide 400 mg [Mag-Ox 400] 800 mg PO BID 12/19/14 [History] Metformin HCl 1000 mg [Glucophage 1000 MG] 1,000 mg PO BID 12/19/14 [History] Montelukast Sodium 10 mg PO DAILY 12/19/14 [History] Potassium Chloride 20 Meq [Klor-Con 20 MEQ] 20 meq PO BID 12/19/14 [History] Apixaban [Eliquis 5 mg Tablet] 5 mg PO BID 06/24/16 [History] Isosorbide Mononitrate 30 mg [Imdur 30 MG] 30 mg PO DAILY 06/24/16 [History ] Omeprazole 20 MG [Prilosec 20 mg] 20 mg PO DAILY 06/24/16 [History] Alprazolam 0.25 mg [xanAX 0.25 MG] 0.25 mg PO TID PRN 08/22/17 [History] Buspirone HCl 5 mg [Buspar 5 mg] 5 mg PO BID 08/22/17 [History] Diphenoxylate HCl/Atropine [Diphenoxylate-Atrop 2.5-0.025] 1 each PO DAILY PRN PRN 08/22/17 [History] Gatifloxacin/Prednisolone [Prednisolone 1%-Gatiflox 0.5%] 1 drop OP TID PRN 08/06 [History] Iron Polysac/Iron Heme/FA/B12 [Hemetab Iron Supplement Tablet] 1 each PO DAILY 08/22/17 [History] Simvastatin 40 mg [Zocor 40 mg] 40 mg PO UD 08/22/17 [History] Hx Tetanus, Diphtheria Vaccination/Date Given: Yes Hx Influenza Vaccination/Date Given: Yes Hx Pneumococcal Vaccination/Date Given: No Immunizations Up to Date: Yes - Review of Systems Constitutional: No Symptoms Eyes: No Symptoms Ears, Nose, & Throat: No Symptoms Respiratory: No Cough, No Dyspnea, No Wheezing Cardiac: Chest Pain (right anteroior ribs), Edema (chronic), No Palpitations, No Syncope, No Orthopnea Abdominal/Gastrointestinal: No Abdominal Pain, No Nausea, No Vomiting, No Diarrhea Genitourinary Symptoms: No Symptoms Musculoskeletal: No Symptoms Skin: No Symptoms Neurological: No Symptoms Psychological: No Symptoms Endocrine: No Symptoms Hematologic/Lymphatic: No Symptoms Immunological/Allergic: No Symptoms - Past Medical History Pertinent Past Medical History: Yes Neurological History: No Pertinent History ENT History: Cataracts Cardiac History: Arrhythmia, High Cholesterol, Hypertension Respiratory History: No Pertinent History Endocrine Medical History: Diabetes Type II Musculoskeletal History: Arthritis, Degenerative Disk Disease GI Medical History: Diverticulitis History: No Pertinent History Psycho-Social History: Anxiety, Depression Female Reproductive Disorders: Fibroids Other Medical History: Pacemaker - Past Surgical History Past Surgical History: Yes Neuro Surgical History: No Pertinent History Cardiac: Pacemaker Respiratory: No Pertinent History Gastrointestinal: Appendectomy, Cholecystectomy Genitourinary: No Pertinent History Musculoskeletal: Orthopedic Surgery Female Surgical History: Hysterectomy Other Surgical History: spinal stenosis surgery, rotator cuff right arm - Social History Smoking Status: Never smoker Exposure to second hand smoke: No Alcohol Use: None Drug Use: none Patient Lives Alone: Yes Significant Family History: heart disease, diabetes - Female History Hx Now: No - Nursing Vital Signs Nursing Vital Signs: Initial Vital Signs Temperature 99.2 F 10/15/17 10:55 Pulse Rate 66 10/15/17 10:55 Respiratory Rate 18 10/15/17 10:55 Blood Pressure 170/74 10/15/17 10:55 O2 Sat by Pulse Oximetry 96 10/15/17 10:55 Pain Scale Pain Intensity 6 - Physical Exam General Appearance: mild distress, alert, obese Eye Exam: PERRL/EOMI, eyes nml inspection Ears, Nose, Throat Exam: normal ENT inspection, TMs normal, pharynx normal, moist mucous membranes Neck Exam: normal inspection, non-tender, supple, full range of motion, No JVD Respiratory Exam: normal breath sounds, chest tenderness (anterior lower right ribs costochondral margin), lungs clear, airway intact, No respiratory distress , No rhonchi, No wheezing, No pleural rub, No other (no crepitus) Cardiovascular Exam: regular rate/rhythm, normal heart sounds, normal peripheral pulses, capillary refill 2-3 sec, edema, No murmur Gastrointestinal/Abdomen Exam: soft, normal bowel sounds, No tenderness, No guarding, No rebound Pelvic Exam: not done Rectal Exam: deferred Back Exam: normal inspection, normal range of motion, No CVA tenderness Extremity Exam: normal inspection, normal range of motion, pedal edema, No tejas 's sign Neurologic Exam: alert, oriented x 3, cooperative, tie carrier II-XII nml as tested, normal mood/affect, nml cerebellar function, nml station & gait Skin Exam: normal color, warm, dry, No rash SpO2 Interpretation: normal SpO2: 96 Oxygen Delivery: Room Air - Course Nursing assessment & vital signs reviewed: Yes - Radiology Exams Right Ribs X-ray Interpretation: Interpreted by me, No Fracture, Other (DJD) Chest X-ray Interpretation: Interpreted by me, No Fracture, No Pneumonia, No Pneumothorax, Nml Heart Size, No Infiltrates, Other (pacemaker) Ordered Tests: Active Orders 24 hr Category Date Time Status Pulse Oximetry (ED) STAT Care 10/15/17 11:09 Active Re-Check Vital Signs STAT Care 10/15/17 11:09 Active CHEST 2 VIEWS (PA AND LAT) Stat Exams 10/15/17 11:09 Taken RIBS UNILATERAL Stat Exams 10/15/17 11:10 Taken Medication Summary Discontinued Medications Generic Name Dose Route Start Last Admin Trade Name Lambert PRN Reason Stop Dose Admin Ketorolac Tromethamine 30 mg 10/15/17 12:03 10/15/17 12:23 Toradol 30 Mg Injection IM 10/15/17 12:04 30 mg STAT ONE Administration Ketorolac Tromethamine Confirm 10/15/17 12:19 Toradol 30 Mg Injection Administered 10/15/17 12:20 Dose 30 mg .ROUTE .STK-MED ONE - Progress Progress: improved (after meds), re-examined (after xr) Progress Note: 10/15/17 12:08 xr neg for fracture; DJD; discussed treatmetn plan; will give pain meds; instructions given 10/15/17 12:53 good releif with meds; instructions given Counseled pt/family regarding: diagnosis, need for follow-up, rad results - Departure Time of Disposition: 12:53 Departure Disposition: Home Clinical Impression: right costochondral pain Condition: Stable Critical Care Time: No Referrals: MELVA HENSON MD [Primary Care Provider] - Instructions: Bruised Rib Additional Instructions: ice; Follow-up with family doctor as directed. Call for appointment. Return if any problems. If you smoke please stop. Call or follow up with your family doctor for assistance if you need it to stop. Please wear your seatbelt when driving. Have a nice day. Thank you for allowing us to participate in your care today. :o) Dr Zeyad Reddy Prescriptions: Naproxen Sodium [Anaprox Ds] 550 mg PO Q8HPRN PRN #14 tablet PRN Reason: Pain
[2017-10-15] MEDS ORDERED: TORAdol 30 mg Injection ONE (12:19)
[2017-10-15 12:33] VITALS: BP 141/89; PULSE 62
[2017-10-15 12:55] VITALS: O2SAT 96
--- NOTE | 2017-10-15 21:08 | XRAY ---
Indication: Right rib pain. Comparison: None 2 views of the right ribs demonstrates age-related osteopenia, multilevel degenerative spondylosis, and pulmonary calcified granulomas. No acute fracture or suspicious bony lesions.
--- NOTE | 2017-10-15 21:08 | XRAY ---
Indication: Right rib pain. Comparison: June 24, 2016. PA/lateral chest remains clear again with a few incidental calcified granulomas. Heart is not enlarged again with left-sided dual-lead pacemaker. Descending aorta remains tortuous. Bony thorax intact again with osteopenia and degenerative changes. Impression: Stable nonacute chest with chronic features.
== END 2017-10-15 13:01 | disposition home or self-care (01) ==
LOC: ED 10:31
DX: R07.1 Chest pain on breathing (principal); N64.4 Mastodynia; R07.81 Pleurodynia; Z79.82 Long term (current) use of aspirin; Z79.899 Other long term (current) drug therapy
CPT/HCPCS: 71046; 71100; 96372; 99283; J1885

== ENCOUNTER 2018-02-13 09:39 | Inpatient (IN) | payer MEDICARE, BC ==
[2018-02-13] MEDS ORDERED: Zofran 4 MG/2 ML VIAL IV ONE (10:03)
[2018-02-13] MEDS ORDERED: MORPHINE SULFATE 4 MG INJ IV ONE (10:06)
[2018-02-13] MEDS ORDERED: Zofran 4 MG/2 ML VIAL ONE (10:09)
[2018-02-13] MEDS ORDERED: MORPHINE SULFATE 4 MG INJ ONE (10:10)
[2018-02-13] MEDS: Sodium Chloride 0.9% 1000 ML 1,000 ML IV SCH ×2 (10:12→20:18)
--- NOTE | 2018-02-13 10:33 | ERPHSYRPT ---
- History of Present Illness Time Seen by Provider: 02/13/18 09:55 Historian: patient Exam Limitations: clinical condition Patient Subjective Stated Complaint: Pt states "I have belly pain and I am having diarrhea." Triage Nursing Assessment: Pt alert and oriented X 3, skin pwd. Pt arrived via Medic 1. 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 PT moaning. Pt in no apparent respiratory distress. PT abdomen tender in all quadrants to light palpation. Physician History: PATIENT WITH A HISTORY OF DIVERTICULITIS, TYPE 2 DIABETES, HYPERTENSION, AND CHRONIC DIARRHEA COMPLAINS OF GENERALIZED ABDOMINAL PAIN FOR 3 WEEKS ASSOCIATED WITH NAUSEA. DENIES EMESIS, FEVER, URINARY SYMPTOMS. STATES PAIN SCALE 8/10. Timing/Duration: week(s) Activities at Onset: none Quality: sharpness, stabbing Abdominal Pain Onset Location: generalized abdomen Pain Radiation: no radiation Severity of Pain-Max: moderate Severity of Pain-Current: moderate Modifying Factors: Improves With: movement Associated Symptoms: nausea Previous symptoms: same symptoms as today Allergies/Adverse Reactions: Shellfish *RETIRED-09/12/12 [Shellfish] Allergy (Intermediate, Verified 11:08) Hives meperidine HCl [From Demerol] Allergy (Verified 10/15/17 11:08) metronidazole [From Flagyl] Allergy (Verified 10/15/17 11:08) Penicillins Allergy (Verified 10/15/17 11:08) hydralazine Adverse Reaction (Verified 10/15/17 11:08) CRAB Allergy (Uncoded 10/15/17 11:08) Home Medications: Amlodipine Besylate 10 mg [Norvasc 10 MG] 10 mg PO DAILY 12/19/14 [History] Aspirin EC 325 mg [Ecotrin 325 MG] 325 mg PO DAILY 12/19/14 [History] Celecoxib [Celebrex] 200 mg PO DAILY 12/19/14 [History] Folic Acid 0.8 mg PO DAILY 12/19/14 [History] Lisinopril/Hydrochlorothiazide [Lisinopril-Hctz 20-25 mg Tab] 1 each PO DAILY [History] Magnesium Oxide 400 mg [Mag-Ox 400] 800 mg PO BID 12/19/14 [History] Metformin HCl 1000 mg [Glucophage 1000 MG] 1,000 mg PO BID 12/19/14 [History] Montelukast Sodium 10 mg PO DAILY 12/19/14 [History] Potassium Chloride 20 Meq [Klor-Con 20 MEQ] 20 meq PO BID 12/19/14 [History] Apixaban [Eliquis 5 mg Tablet] 5 mg PO BID 06/24/16 [History] Isosorbide Mononitrate 30 mg [Imdur 30 MG] 30 mg PO DAILY 06/24/16 [History ] Omeprazole 20 MG [Prilosec 20 mg] 20 mg PO DAILY 06/24/16 [History] Alprazolam 0.25 mg [xanAX 0.25 MG] 0.25 mg PO TID PRN 08/22/17 [History] Buspirone HCl 5 mg [Buspar 5 mg] 5 mg PO BID 08/22/17 [History] Diphenoxylate HCl/Atropine [Diphenoxylate-Atrop 2.5-0.025] 1 each PO DAILY PRN PRN 08/22/17 [History] Gatifloxacin/Prednisolone [Prednisolone 1%-Gatiflox 0.5%] 1 drop OP TID PRN 08/06 [History] Iron Polysac/Iron Heme/FA/B12 [Hemetab Iron Supplement Tablet] 1 each PO DAILY 08/22/17 [History] Simvastatin 40 mg [Zocor 40 mg] 40 mg PO UD 08/22/17 [History] Hx Tetanus, Diphtheria Vaccination/Date Given: No Hx Influenza Vaccination/Date Given: No Hx Pneumococcal Vaccination/Date Given: No Immunizations Up to Date: Yes - Review of Systems Constitutional: No Fever, No Chills Eyes: No Symptoms Ears, Nose, & Throat: No Symptoms Respiratory: No Symptoms, No Cough, No Dyspnea Cardiac: No Symptoms, No Chest Pain, No Edema, No Syncope Abdominal/Gastrointestinal: Abdominal Pain, Diarrhea, No Nausea, No Vomiting Genitourinary Symptoms: No Symptoms, No Dysuria Musculoskeletal: No Symptoms, No Back Pain, No Neck Pain Skin: No Rash Neurological: No Dizziness, No Focal Weakness, No Sensory Changes Psychological: No Symptoms Endocrine: No Symptoms All Other Systems: Reviewed and Negative - Past Medical History Pertinent Past Medical History: Yes Neurological History: No Pertinent History ENT History: Cataracts Cardiac History: Arrhythmia, High Cholesterol, Hypertension Respiratory History: No Pertinent History Endocrine Medical History: Diabetes Type II Musculoskeletal History: Arthritis, Degenerative Disk Disease GI Medical History: Diverticulitis History: No Pertinent History Psycho-Social History: Anxiety, Depression Female Reproductive Disorders: Fibroids Other Medical History: Pacemaker - Past Surgical History Past Surgical History: Yes Neuro Surgical History: No Pertinent History Cardiac: Pacemaker Respiratory: No Pertinent History Gastrointestinal: Appendectomy, Cholecystectomy Genitourinary: No Pertinent History Musculoskeletal: Orthopedic Surgery Female Surgical History: Hysterectomy Other Surgical History: spinal stenosis surgery, rotator cuff right arm - Social History Smoking Status: Never smoker Exposure to second hand smoke: Yes Alcohol Use: None Drug Use: none Patient Lives Alone: Yes Significant Family History: heart disease, diabetes - Female History Hx Now: No - Nursing Vital Signs Nursing Vital Signs: Initial Vital Signs Temperature 98.2 F 02/13/18 09:43 Pulse Rate 76 02/13/18 09:43 Respiratory Rate 18 02/13/18 09:43 Blood Pressure 133/72 02/13/18 09:43 O2 Sat by Pulse Oximetry 96 02/13/18 09:43 Pain Scale Pain Intensity 2 - Physical Exam General Appearance: mild distress, alert Eye Exam: PERRL/EOMI, eyes nml inspection Ears, Nose, Throat Exam: normal ENT inspection, pharynx normal, moist mucous membranes Neck Exam: normal inspection, non-tender, supple, full range of motion Respiratory Exam: normal breath sounds, lungs clear, No respiratory distress Cardiovascular Exam: regular rate/rhythm, normal heart sounds Gastrointestinal/Abdomen Exam: soft, normal bowel sounds, other (HYPERACTIVE BOWEL SOUNDS, BILATERAL LOWER QUAD, SUPRAPUBIC TENDERNESS), No tenderness, No mass Rectal Exam: normal exam Back Exam: normal inspection, normal range of motion, No CVA tenderness, No vertebral tenderness Extremity Exam: normal inspection, normal range of motion, pelvis stable Neurologic Exam: alert, oriented x 3, cooperative, normal mood/affect, nml cerebellar function, sensation nml, No motor deficits Skin Exam: normal color, warm, dry SpO2: 96 Oxygen Delivery: Room Air - CT Exams Abdomen/Pelvis CT Interpretation: Discussed w/radiologist (MINIMAL SIGMOID DIVERTICULITIS) Ordered Tests: Active Orders 24 hr Category Date Time Status IV Insertion STAT Care 02/13/18 10:03 Active Oxygen-ED Only NASAL CANNULA 2 lpm Care 02/13/18 10:05 Active ABDOMEN AND PELVIS W/0 CONTRAS [CT] Stat Exams 02/13/18 10:04 Completed AMYLASE Stat Lab 02/13/18 10:20 Completed BLOOD CULTURE Stat Lab 02/13/18 10:30 Received CBC W DIFF Stat Lab 02/13/18 10:03 Completed CMP Stat Lab 02/13/18 10:20 Completed CULTURE,URINE Stat Lab 02/13/18 10:04 Received LIPASE Stat Lab 02/13/18 10:20 Completed Occult Blood,Stool Other Stat Lab 02/13/18 10:30 Completed UA W/ MICROSCOPIC Stat Lab 02/13/18 10:04 Completed Medication Summary Generic Name Dose Route Start Last Admin Trade Name Freq PRN Reason Stop Dose Admin Sodium Chloride 1,000 mls @ 100 mls/hr 02/13/18 10:15 02/13/18 10:12 Sodium Chloride 0.9% 1000 Ml IV 03/15/18 10:14 100 mls/hr .Q10H XENIA Administration Discontinued Medications Generic Name Dose Route Start Last Admin Trade Name Freq PRN Reason Stop Dose Admin Clindamycin HCl/Dextrose 600 mg in 50 mls @ 100 mls/hr 02/13/18 11:22 11:54 Clindamycin-D5w 600 Mg/50 Ml IV 02/13/18 11:51 100 mls/hr STAT STA 100 mls/hr Administration Clindamycin HCl/Dextrose Confirm 02/13/18 11:47 Clindamycin-D5w 600 Mg/50 Ml Administered 02/13/18 11:48 Dose 600 mg in 50 mls @ ud IV .STK-MED ONE Morphine Sulfate 4 mg 02/13/18 10:06 02/13/18 10:12 Morphine Sulfate 4 Mg Inj IV 02/13/18 10:07 4 mg STAT ONE Administration Morphine Sulfate Confirm 02/13/18 10:10 Morphine Sulfate 4 Mg Inj Administered 02/13/18 10:11 Dose 4 mg .ROUTE .STK-MED ONE Ondansetron HCl 4 mg 02/13/18 10:03 02/13/18 10:12 Zofran 4 Mg/2 Ml Vial IV 02/13/18 10:04 4 mg STAT ONE Administration Ondansetron HCl Confirm 02/13/18 10:09 Zofran 4 Mg/2 Ml Vial Administered 02/13/18 10:10 Dose 4 mg .ROUTE .STK-MED ONE Lab/Rad Data: Laboratory Result Diagrams 02/13/18 10:03 02/13/18 10:20 Laboratory Results 02/13/18 02/13/18 02/13/18 Range/Units 10:30 10:20 10:04 WBC (4.0-10.5) K/mm3 RBC (4.1-5.4) M/mm3 Hgb (12.0-16.0) gm/dl Hct (35-47) % MCV (78-100) fl MCH (26-32) pg MCHC (32-36) g/dl RDW (11.5-14.0) % Plt Count (150-450) K/mm3 MPV (6-9.5) fl Gran % (36.0-66.0) % Eos # (Auto) (0-0.5) Absolute Lymphs (auto) (1.0-4.6) Absolute Monos (auto) (0.0-1.3) Lymphocytes % (24.0-44.0) % Monocytes % (0.0-12.0) % Eosinophils % (0.00-5.0) % Basophils % (0.0-0.4) % Absolute Granulocytes (1.4-6.9) Basophils # (0-0.4) Sodium 136 L (137-145) mmol/L Potassium 4.0 (3.5-5.1) mmol/L Chloride 100 (98-107) mmol/L Carbon Dioxide 27 (22-30) mmol/L Anion Gap 13.4 (5-15) MEQ/L BUN 36 H (7-17) mg/dL Creatinine 0.82 (0.52-1.04) mg/dL Estimated GFR > 60.0 ML/MIN Glucose 178 H (74-106) mg/dL Calcium 9.7 (8.4-10.2) mg/dL Total Bilirubin 0.80 (0.2-1.3) mg/dL AST 21 (14-36) U/L ALT 23 (0-35) U/L Alkaline Phosphatase 85 (38-126) U/L Serum Total Protein 6.1 L (6.3-8.2) g/dL Albumin 3.7 (3.5-5.0) g/dL Amylase 127 H (30-110) U/L Lipase 45 (23-300) U/L Ur Collection Type CATH Urine Color YELLOW (YELLOW) Urine Appearance CLOUDY (CLEAR) Urine pH 5.0 (5-6) Ur Specific [place] 1.015 (1.005-1.025) Urine Protein 50 (Negative) Urine Ketones SMALL (NEGATIVE) Urine Blood 250 (0-5) Soham/ul Urine Nitrite NEGATIVE (NEGATIVE) Urine Bilirubin NEGATIVE (NEGATIVE) Urine Urobilinogen NORMAL (0-1) mg/dL Ur Leukocyte Esterase TRACE (NEGATIVE) Urine Microscopic RBC 25-50 (0-2) /HPF Urine Microscopic WBC 10-15 (0-5) /HPF Ur Epithelial Cells RARE (FEW) /HPF Urine Bacteria MANY (NEGATIVE) /HPF Urine Culture Reflexed YES (NO) Urine Glucose NEGATIVE (NEGATIVE) mg/dL Stool Occult Blood POSITIVE (Negative) 02/13/18 Range/Units 10:03 WBC 20.2 H (4.0-10.5) K/mm3 RBC 5.70 H (4.1-5.4) M/mm3 Hgb 18.3 H (12.0-16.0) gm/dl Hct 53.8 H (35-47) % MCV 94.4 (78-100) fl MCH 32.1 H (26-32) pg MCHC 34.0 (32-36) g/dl RDW 17.5 H (11.5-14.0) % Plt Count 262 (150-450) K/mm3 MPV 10.5 H (6-9.5) fl Gran % 93.4 H (36.0-66.0) % Eos # (Auto) 0.01 (0-0.5) Absolute Lymphs (auto) 0.71 L (1.0-4.6) Absolute Monos (auto) 0.60 (0.0-1.3) Lymphocytes % 3.5 L (24.0-44.0) % Monocytes % 3.0 (0.0-12.0) % Eosinophils % 0.0 (0.00-5.0) % Basophils % 0.1 (0.0-0.4) % Absolute Granulocytes 18.82 H (1.4-6.9) Basophils # 0.02 (0-0.4) Sodium (137-145) mmol/L Potassium (3.5-5.1) mmol/L Chloride (98-107) mmol/L Carbon Dioxide (22-30) mmol/L Anion Gap (5-15) MEQ/L BUN (7-17) mg/dL Creatinine (0.52-1.04) mg/dL Estimated GFR ML/MIN Glucose (74-106) mg/dL Calcium (8.4-10.2) mg/dL Total Bilirubin (0.2-1.3) mg/dL AST (14-36) U/L ALT (0-35) U/L Alkaline Phosphatase (38-126) U/L Serum Total Protein (6.3-8.2) g/dL Albumin (3.5-5.0) g/dL Amylase (30-110) U/L Lipase (23-300) U/L Ur Collection Type Urine Color (YELLOW) Urine Appearance (CLEAR) Urine pH (5-6) Ur Specific [place] (1.005-1.025) Urine Protein (Negative) Urine Ketones (NEGATIVE) Urine Blood (0-5) Soham/ul Urine Nitrite (NEGATIVE) Urine Bilirubin (NEGATIVE) Urine Urobilinogen (0-1) mg/dL Ur Leukocyte Esterase (NEGATIVE) Urine Microscopic RBC (0-2) /HPF Urine Microscopic WBC (0-5) /HPF Ur Epithelial Cells (FEW) /HPF Urine Bacteria (NEGATIVE) /HPF Urine Culture Reflexed (NO) Urine Glucose (NEGATIVE) mg/dL Stool Occult Blood (Negative) - Progress Progress: improved, pain not gone completely Progress Note: 02/13/18 10:35 ADMINISTERED IV NORMAL SALINE 100ML/HR, ZOFRAN 4MG, MORPHINE 4MG, AFTER 2 SETS OF BLOOD CULTURES ADMINISTERED CLINDAMYCIN 600MG IVPB 02/13/18 11:25 Discussed with : Ifeoma (DISCUSSED WITH DR WHALEN AT 1145 FOR OBSERVATION) - Departure Time of Disposition: 12:24 Departure Disposition: Observation Clinical Impression: ACUTE SIGMOID DIVERTICULITIS Condition: Stable Critical Care Time: No Referrals: FERDINAND WHALEN [Primary Care Provider] -
[2018-02-13 10:37] LABS: BASOPHIL % 0.1 % (0.0-0.4); Basophil (Absolute #) 0.02 (0-0.4); Eosinophil (Absolute #) 0.01 (0-0.5); Granulocyte Absolute (ANC) 18.82 (1.4-6.9); Granulocytes % 93.4 % (36.0-66.0); Hematocrit 53.8 % (35-47); Hemoglobin 18.3 gm/dl (12.0-16.0); Lymphocyte (Absolute #) 0.71 (1.0-4.6); Lymphocytes % 3.5 % (24.0-44.0); Mean Cell Volume 94.4 fl (78-100); Mean Corpuscular Hemoglobin 32.1 pg (26-32); Mean Platelet Volume 10.5 fl (6-9.5); Platelet Count 262 K/mm3 (150-450); Red Cell Distribution Width 17.5 % (11.5-14.0); White Blood Count 20.2 K/mm3 (4.0-10.5)
[2018-02-13 10:57] LABS: ALBUMIN 3.7 g/dL (3.5-5.0); ALKALINE PHOSPHATASE 85 U/L (38-126); AMYLASE 127 U/L (30-110); ANION GAP 13.4 MEQ/L (5-15); BLOOD UREA NITROGEN 36 mg/dL (7-17); CHLORIDE 100 mmol/L (98-107); Calcium 9.7 mg/dL (8.4-10.2); Carbon Dioxide 27 mmol/L (22-30); Creatinine 1 0.82 mg/dL (0.52-1.04); Glucose 178 mg/dL (74-106); LIPASE 45 U/L (23-300); SGOT/AST 21 U/L (14-36); SGPT/ALT 23 U/L (0-35); SODIUM 136 mmol/L (137-145); Total Protein 6.1 g/dL (6.3-8.2)
--- NOTE | 2018-02-13 11:18 | XRAY ---
Indication: Lower abdominal pain. Chronic diarrhea. Multiple contiguous axial images obtained through the abdomen and pelvis without contrast as ordered. Comparison: July 27, 2015. Lung bases again demonstrates minimal bibasilar fibrosis/scarring. No infiltrate or effusion. Heart is not enlarged. Stable left hemidiaphragm elevation. Noncontrasted stomach and bowel loops appear nonobstructed. There remains mild diffuse scattered colonic fecal debris throughout, less than before. Also stable scattered colonic diverticulosis with now minimal sigmoid diverticulitis. New tiny right colic free fluid but no walled off fluid collection or free air. Again cholecystectomy and hysterectomy. Stable punctate right adrenal calcifications, 1.4 cm inferior right renal cyst, and calcified splenic granulomas. Remaining liver, pancreas, spleen, adrenal glands, kidneys, ureters, and bladder appear unremarkable for noncontrast exam. There remains mild aortoiliac calcifications without AAA. Osseous structures again demonstrates multilevel degenerative spondylosis, scoliosis, and L4-L5 fusion surgery with intact spinal hardware. Impression: 1. New mild sigmoid diverticulitis. Also new right colic free fluid that may be related. No walled off fluid collection or free air. 2. Again fecal stasis without obstruction, less than before. 3. Stable right adrenal punctate calcifications and right renal cyst. CT DI 21.96
[2018-02-13] MEDS ORDERED: CLINDAMYCIN-D5W 600 MG/50 ML*** 600 MG/50 ML BAG IV STA (11:22)
[2018-02-13 11:46] LABS: Appearance CLOUDY (CLEAR); Bilirubin NEGATIVE (NEGATIVE); Blood 250 Ery/ul (0-5); Glucose NEGATIVE (NEGATIVE); Ketones SMALL (NEGATIVE); Leukocyte Esterase TRACE (NEGATIVE); Nitrite NEGATIVE (NEGATIVE); Protein,Urine Dip 50 (Negative); Specific Gravity 1.015 (1.005-1.025); Urobilinogen NORMAL mg/dL (0-1)
[2018-02-13] MEDS ORDERED: CLINDAMYCIN-D5W 600 MG/50 ML*** 600 MG/50 ML BAG IV ONE (11:47)
[2018-02-13 11:59] LABS: Bacteria MANY /HPF (NEGATIVE); Epithelial Cells RARE /HPF (FEW); RBC 25-50 /HPF (0-2)
[2018-02-13] MEDS ORDERED: Zofran 4 MG/2 ML VIAL IV PRN (12:13)
[2018-02-13] MEDS ORDERED: Sodium Chloride 0.9% 1000 ML 1,000 ML IV SCH (12:15)
[2018-02-13] MEDS ORDERED: Zestril 10 MG PO STA (12:18)
[2018-02-13] MEDS ORDERED: SODIUM SULAMYD EYE DROPS 15 ML OP PRN (14:40)
[2018-02-13] MEDS ORDERED: NON-FORMULARY ITEM (Simvastatin 40 Mg [Zocor 40 Mg] 40 MG) PO SCH (14:45)
[2018-02-13] MEDS ORDERED: GATIFLOXACIN OP SCH (14:45)
[2018-02-13] MEDS ORDERED: PREDNISOLONE OP SCH (14:45)
[2018-02-13] MEDS ORDERED: MEDICATION INTERVENTION MC SCH ×2 (15:00)
[2018-02-13] MEDS ORDERED: PYRIDOSTIGMINE BROMIDE 30 MG PO SCH (15:00)
--- NOTE | 2018-02-13 15:17 | PCM.HP ---
History of Present Illness - Chief Complaint Chief Complaint: ACUTE SIGMOID DIVERTICULITIS History of Present Illness: is a 87 year old female pt of mine from [facility] who has had several months of diarrhea and abdominal pain. It worsened this week and she came to the ER today. Was c/o 8/10 lower abd pain. Diarrhea 3x in a night, waking the pt. Also c/o a sore on her bottom as she can't clean herself well after a bowel movement. no fever. not tolerating po well. no vomiting. no minerva blood in the stool. In ER she was found to have divertiulitis wiht WBC of 20,000. She was admitted on IV clindamycin as she is allergic to penicillins an dflagyl. She states that now her pain is 4/10. - Review of Systems Cardiac: Edema (chronic LE edema) Abdominal/Gastrointestinal: Abdominal Pain, Diarrhea Psychological: Other (in recent weeks feeling worse emotionally with illness), No Suicidal Ideations All Other Systems: Reviewed and Negative Medications & Allergies Home Medications: Home Medication List Amlodipine Besylate 10 mg [Norvasc 10 MG] 10 mg PO DAILY 12/19/14 [History Confirmed 02/13/18] Folic Acid 0.8 mg PO DAILY 12/19/14 [History Confirmed 02/13/18] Lisinopril/Hydrochlorothiazide [Lisinopril-Hctz 20-25 mg Tab] 1 each PO DAILY [History Confirmed 02/13/18] Magnesium Oxide 400 mg [Mag-Ox 400] 800 mg PO BID 12/19/14 [History Confirmed 02/13/18] Metformin HCl 1000 mg [Glucophage 1000 MG] 1,000 mg PO BID 12/19/14 [History Confirmed 02/13/18] Montelukast Sodium 10 mg PO DAILY 12/19/14 [History Confirmed 02/13/18] Potassium Chloride 20 Meq [Klor-Con 20 MEQ] 20 meq PO BID 12/19/14 [History Confirmed 02/13/18] Apixaban [Eliquis 5 mg Tablet] 5 mg PO BID 06/24/16 [History Confirmed ] Isosorbide Mononitrate 30 mg [Imdur 30 MG] 30 mg PO DAILY 06/24/16 [ History Confirmed 02/13/18] Omeprazole 20 MG [Prilosec 20 mg] 20 mg PO DAILY 06/24/16 [History Confirmed ] Alprazolam 0.25 mg [xanAX 0.25 MG] 0.25 mg PO TID PRN 08/22/17 [History Confirmed 02/13/18] Diphenoxylate HCl/Atropine [Diphenoxylate-Atrop 2.5-0.025] 1 each PO DAILY PRN PRN 08/22/17 [History Confirmed 02/13/18] Gatifloxacin/Prednisolone [Prednisolone 1%-Gatiflox 0.5%] 1 drop OP TID PRN 08/06 [History Confirmed 02/13/18] Simvastatin 40 mg [Zocor 40 mg] 40 mg PO UD 08/22/17 [History Confirmed 02/13/18 ] Aspirin 81 mg PO DAILY 02/13/18 [History Confirmed 02/13/18] Calcium Citrate/Vitamin D3 [Citracal + D [place]] 1 tab PO DAILY 02/13/18 [ History Confirmed 02/13/18] Cholecalciferol (Vitamin D3) [Vitamin D3] 1,000 unit PO DAILY 02/13/18 [History Confirmed 02/13/18] Folic Acid 1 tab PO DAILY 02/13/18 [History Confirmed 02/13/18] Folic Acid 1 mg [Folate 1 mg] 2 tab PO DAILY 02/13/18 [History Confirmed 02/13/18] Mycophenolate Mofetil 1,000 mg PO BID 02/13/18 [History Confirmed 02/13/18] Prednisone 20 mg [Deltasone 20 mg] 20 mg PO BID 02/13/18 [History Confirmed 02/13/18] Pyridostigmine [place] 30 mg PO TID 02/13/18 [History Confirmed 02/13/18] Sulfacetamide Sodium Ophth [Sodium Sulamyd Eye Drops 15 ml] 1 drop OP BID PRN 02/13/18 [History Confirmed 02/13/18] Thiamine HCl 1 tab PO DAILY 02/13/18 [History Confirmed 02/13/18] Ubidecarenone [Co Q-10] 2 cap PO BID 02/13/18 [History Confirmed 02/13/18] Allergies/Adverse Reactions: Allergies Allergy/AdvReac Type Severity Reaction Status Date / Time Shellfish *RETIRED-09/12/12 Allergy Intermediate Hives Verified 10/15/17 11:08 [Shellfish] meperidine HCl [From Demerol] Allergy Verified 10/15/17 11:08 metronidazole [From Flagyl] Allergy Verified 10/15/17 11:08 Penicillins Allergy Verified 10/15/17 11:08 hydralazine AdvReac Verified 10/15/17 11:08 CRAB Allergy Uncoded 10/15/17 11:08 - Past Medical History Past Medical History: Yes Neurological History: No Pertinent History ENT History: Cataracts Cardiac History: Arrhythmia, High Cholesterol, Hypertension Respiratory History: No Pertinent History Endocrine Medical History: Diabetes Type II Musculoskelatal History: Arthritis, Degenerative Disk Disease GI Medical History: Diverticulitis History: No Pertinent History Pyscho-Social History: Anxiety, Depression Reproductive Disorders: No Pertinent History Comment: Pacemaker - Female History Are you now?: No - Past Surgical History Past Surgical History: Yes Neuro Surgical History: No Pertinent History Cardiac History: Pacemaker Respiratory Surgery: No Pertinent History GI Surgical History: Appendectomy, Cholecystectomy Genitourinary Surgical Hx: No Pertinent History Musculskeletal Surgical Hx: Orthopedic Surgery Female Surgical History: Hysterectomy Other Surgical History: spinal stenosis surgery, rotator cuff right arm - Social History Smoking Status: Never smoker Exposure to second hand smoke: No Alcohol: None Drug Use: none Significant Family History: heart disease, diabetes - Physical Exam Vital Signs: Vital Signs - 24 hr Temp Pulse Resp BP Pulse Ox 02/13/18 15:00 97 02/13/18 13:01 97.7 F 74 18 118/61 94 L 02/13/18 12:52 97.7 F 74 18 118/61 94 L 02/13/18 12:13 96 02/13/18 11:58 98.7 F 70 16 107/53 98 02/13/18 10:36 64 16 99/61 97 02/13/18 09:43 98.2 F 76 18 133/72 96 General Appearance: no apparent distress, alert Neurologic Exam: oriented x 3, cooperative Eye Exam: eyes nml inspection Ears, Nose, Throat Exam: moist mucous membranes Neck Exam: normal inspection Respiratory Exam: normal breath sounds, No crackles/rales, No rhonchi, No wheezing Cardiovascular Exam: regular rate/rhythm, normal heart sounds, murmur Gastrointestinal/Abdomen Exam: soft, normal bowel sounds, tenderness (RUQ, LUQ) , No distention, No mass, No guarding, No rebound Back Exam: other (slightly purple to yellow discoloration in irregular pattern over R scapula superiorly), No rash Extremity Exam: pedal edema, swelling (1+ pitting edema bilat LE) Skin Exam: normal color, warm, dry, No rash Results - Labs Lab/Micro Results: Lab Results-Last 24 Hours 02/13/18 02/13/18 02/13/18 Range/Units 10:03 10:04 10:20 WBC 20.2 H (4.0-10.5) K/mm3 RBC 5.70 H (4.1-5.4) M/mm3 Hgb 18.3 H (12.0-16.0) gm/dl Hct 53.8 H (35-47) % MCV 94.4 (78-100) fl MCH 32.1 H (26-32) pg MCHC 34.0 (32-36) g/dl RDW 17.5 H (11.5-14.0) % Plt Count 262 (150-450) K/mm3 MPV 10.5 H (6-9.5) fl Gran % 93.4 H (36.0-66.0) % Eos # (Auto) 0.01 (0-0.5) Absolute Lymphs (auto) 0.71 L (1.0-4.6) Absolute Monos (auto) 0.60 (0.0-1.3) Lymphocytes % 3.5 L (24.0-44.0) % Monocytes % 3.0 (0.0-12.0) % Eosinophils % 0.0 (0.00-5.0) % Basophils % 0.1 (0.0-0.4) % Absolute Granulocytes 18.82 H (1.4-6.9) Basophils # 0.02 (0-0.4) Sodium 136 L (137-145) mmol/L Potassium 4.0 (3.5-5.1) mmol/L Chloride 100 (98-107) mmol/L Carbon Dioxide 27 (22-30) mmol/L Anion Gap 13.4 (5-15) MEQ/L BUN 36 H (7-17) mg/dL Creatinine 0.82 (0.52-1.04) mg/dL Estimated GFR > 60.0 ML/MIN Glucose 178 H (74-106) mg/dL Calcium 9.7 (8.4-10.2) mg/dL Total Bilirubin 0.80 (0.2-1.3) mg/dL AST 21 (14-36) U/L ALT 23 (0-35) U/L Alkaline Phosphatase 85 (38-126) U/L Serum Total Protein 6.1 L (6.3-8.2) g/dL Albumin 3.7 (3.5-5.0) g/dL Amylase 127 H (30-110) U/L Lipase 45 (23-300) U/L Ur Collection Type CATH Urine Color YELLOW (YELLOW) Urine Appearance CLOUDY (CLEAR) Urine pH 5.0 (5-6) Ur Specific [place] 1.015 (1.005-1.025) Urine Protein 50 (Negative) Urine Ketones SMALL (NEGATIVE) Urine Blood 250 (0-5) Soham/ul Urine Nitrite NEGATIVE (NEGATIVE) Urine Bilirubin NEGATIVE (NEGATIVE) Urine Urobilinogen NORMAL (0-1) mg/dL Ur Leukocyte Esterase TRACE (NEGATIVE) Urine Microscopic RBC 25-50 (0-2) /HPF Urine Microscopic WBC 10-15 (0-5) /HPF Ur Epithelial Cells RARE (FEW) /HPF Urine Bacteria MANY (NEGATIVE) /HPF Urine Culture Reflexed YES (NO) Urine Glucose NEGATIVE (NEGATIVE) mg/dL Stool Occult Blood (Negative) 02/13/18 Range/Units 10:30 WBC (4.0-10.5) K/mm3 RBC (4.1-5.4) M/mm3 Hgb (12.0-16.0) gm/dl Hct (35-47) % MCV (78-100) fl MCH (26-32) pg MCHC (32-36) g/dl RDW (11.5-14.0) % Plt Count (150-450) K/mm3 MPV (6-9.5) fl Gran % (36.0-66.0) % Eos # (Auto) (0-0.5) Absolute Lymphs (auto) (1.0-4.6) Absolute Monos (auto) (0.0-1.3) Lymphocytes % (24.0-44.0) % Monocytes % (0.0-12.0) % Eosinophils % (0.00-5.0) % Basophils % (0.0-0.4) % Absolute Granulocytes (1.4-6.9) Basophils # (0-0.4) Sodium (137-145) mmol/L Potassium (3.5-5.1) mmol/L Chloride (98-107) mmol/L Carbon Dioxide (22-30) mmol/L Anion Gap (5-15) MEQ/L BUN (7-17) mg/dL Creatinine (0.52-1.04) mg/dL Estimated GFR ML/MIN Glucose (74-106) mg/dL Calcium (8.4-10.2) mg/dL Total Bilirubin (0.2-1.3) mg/dL AST (14-36) U/L ALT (0-35) U/L Alkaline Phosphatase (38-126) U/L Serum Total Protein (6.3-8.2) g/dL Albumin (3.5-5.0) g/dL Amylase (30-110) U/L Lipase (23-300) U/L Ur Collection Type Urine Color (YELLOW) Urine Appearance (CLEAR) Urine pH (5-6) Ur Specific [place] (1.005-1.025) Urine Protein (Negative) Urine Ketones (NEGATIVE) Urine Blood (0-5) Soham/ul Urine Nitrite (NEGATIVE) Urine Bilirubin (NEGATIVE) Urine Urobilinogen (0-1) mg/dL Ur Leukocyte Esterase (NEGATIVE) Urine Microscopic RBC (0-2) /HPF Urine Microscopic WBC (0-5) /HPF Ur Epithelial Cells (FEW) /HPF Urine Bacteria (NEGATIVE) /HPF Urine Culture Reflexed (NO) Urine Glucose (NEGATIVE) mg/dL Stool Occult Blood POSITIVE (Negative) - Radiology Impressions Radiology Exams & Impressions: Radiology Procedures Category Date Time Status ABDOMEN AND PELVIS W/0 CONTRAS [CT] Stat Exams 02/13/18 10:04 Completed - Other Procedures and Tests Respiratory Therapy 02/13/18 12:13 Oxygen NASAL CANNULA 2 lpm 02/13/18 15:00 Respiratory Therapy Assessment DAILY Assessment/Plan (1) Acute diverticulitis Current Visit: No Status: Acute Assessment & Plan: On IV clindamycin day #1 - pt allergic to flagyl and clindamycin Code(s): K57.92 - DVTRCLI OF INTEST, PART UNSP, W/O PERF OR ABSCESS W/O BLEED (2) Diabetes mellitus Current Visit: Yes Status: Acute Qualifiers: Diabetes mellitus type: type 2 Diabetes mellitus complication status: without complication Code(s): E11.9 - TYPE 2 DIABETES MELLITUS WITHOUT COMPLICATIONS (3) DVT prophylaxis Current Visit: No Status: Acute Assessment & Plan: on Eliquis. Code(s): VDV0213 - (4) Hypertension Current Visit: No Status: Chronic Qualifiers: Hypertension type: essential hypertension Qualified Code(s): I10 - Essential (primary) hypertension Code(s): I10 - ESSENTIAL (PRIMARY) HYPERTENSION (5) Leukocytosis Current Visit: No Status: Acute Qualifiers: Leukocytosis type: unspecified Qualified Code(s): D72.829 - Elevated white blood cell count, unspecified Assessment & Plan: recheck in a.m. Code(s): D72.829 - ELEVATED WHITE BLOOD CELL COUNT, UNSPECIFIED
[2018-02-13] MEDS: MORPHINE SULFATE 2 MG INJ IV PRN ×2 (17:46→22:03)
[2018-02-13] MEDS: CLINDAMYCIN-D5W 600 MG/50 ML*** 600 MG/50 ML BAG IV SCH (20:18)
[2018-02-13] MEDS: Klor Con 10 MEQ PO SCH (20:23)
[2018-02-13] MEDS: MAG-OX 400 PO SCH (20:24)
[2018-02-13] MEDS: ELIQUIS 2.5 MG TABLET PO SCH (20:24)
[2018-02-13] MEDS: xanAX 0.25 MG PO PRN (20:33)
[2018-02-13] MEDS ORDERED: NON-FORMULARY ITEM (Potassium Chloride 20 Meq [Klor-Con 20 Meq] 20 MEQ) PO SCH (22:00)
[2018-02-13] MEDS ORDERED: DELTASONE 20 MG PO SCH (22:00)
[2018-02-14] MEDS: MORPHINE SULFATE 2 MG INJ IV PRN ×3 (05:15→11:49)
[2018-02-14] MEDS: Sodium Chloride 0.9% 1000 ML 1,000 ML IV SCH (05:15)
[2018-02-14] MEDS: CLINDAMYCIN-D5W 600 MG/50 ML*** 600 MG/50 ML BAG IV SCH ×3 (05:16→22:35)
[2018-02-14 05:32] LABS: BASOPHIL % 0.2 % (0.0-0.4); Basophil (Absolute #) 0.02 (0-0.4); Eosinophil % 0.1 % (0.00-5.0); Eosinophil (Absolute #) 0.01 (0-0.5); Granulocyte Absolute (ANC) 10.86 (1.4-6.9); Granulocytes % 87.1 % (36.0-66.0); Hematocrit 45.7 % (35-47); Hemoglobin 15.3 gm/dl (12.0-16.0); Lymphocyte (Absolute #) 0.99 (1.0-4.6); Lymphocytes % 7.9 % (24.0-44.0); Mean Cell Volume 97.2 fl (78-100); Mean Corpuscular Hemoglobin 32.6 pg (26-32); Mean Corpuscular Hgb Concent. 33.5 g/dl (32-36); Mean Platelet Volume 10.1 fl (6-9.5); Monocyte (Absolute #) 0.58 (0.0-1.3); Monocytes % 4.7 % (0.0-12.0); Platelet Count 218 K/mm3 (150-450); Red Cell Distribution Width 17.5 % (11.5-14.0); White Blood Count 12.5 K/mm3 (4.0-10.5)
[2018-02-14 06:05] LABS: ALBUMIN 2.7 g/dL (3.5-5.0); ALKALINE PHOSPHATASE 52 U/L (38-126); ANION GAP 7.3 MEQ/L (5-15); BLOOD UREA NITROGEN 27 mg/dL (7-17); CHLORIDE 102 mmol/L (98-107); Calcium 8.5 mg/dL (8.4-10.2); Carbon Dioxide 31 mmol/L (22-30); Glucose 60 mg/dL (74-106); SGOT/AST 14 U/L (14-36); SGPT/ALT 17 U/L (0-35); SODIUM 136 mmol/L (137-145); Total Protein 4.8 g/dL (6.3-8.2)
--- NOTE | 2018-02-14 09:00 | PCM.NOTE ---
Date and Time: 02/14/18 0857 Subjective Assessment: She is not having vomiting or diarrhea. Tolerating clear liquids. She is still having abdominal pain and just asked for pain meds. - Review of Systems Constitutional: No Fever Abdominal/Gastrointestinal: Abdominal Pain Objective Exam General Appearance: no apparent distress, alert Neurologic Exam: oriented x 3, cooperative Skin Exam: normal color, warm, dry, No rash Ears, Nose, Throat Exam: moist mucous membranes Respiratory Exam: normal breath sounds, lungs clear, No crackles/rales, No rhonchi, No wheezing Cardiovascular Exam: regular rate/rhythm, normal heart sounds, No murmur Gastrointestinal/Abdomen Exam: soft, normal bowel sounds, tenderness (RUQ, RLQ) , No distention, No mass, No guarding, No rebound Extremity Exam: pedal edema, swelling (1+ LE edema bilat) OBJECTIVE DATA Vital Signs: Vital Signs - 24 hr Temp Pulse Resp BP Pulse Ox 02/14/18 07:15 93 L 02/14/18 07:12 86 L 02/14/18 07:00 97.4 F 67 16 94/53 90 L 02/14/18 03:58 98.2 F 64 18 116/56 93 L 02/13/18 23:39 97.5 F 61 18 97/55 93 L 02/13/18 20:33 90 L 02/13/18 19:38 98.0 F 72 18 105/55 94 L 02/13/18 16:00 98.1 F 68 18 99/55 94 L 02/13/18 15:00 97 02/13/18 13:01 97.7 F 74 18 118/61 94 L 02/13/18 12:52 97.7 F 74 18 118/61 94 L 02/13/18 12:13 96 02/13/18 11:58 98.7 F 70 16 107/53 98 02/13/18 10:36 64 16 99/61 97 02/13/18 09:43 98.2 F 76 18 133/72 96 Pain Assessment - Last Documented Pain Intensity 6 Pain Scale Used 0-10 Pain Scale Intake and Output: Intake & Output 02/11/18 02/12/18 02/13/18 02/14/18 11:59 11:59 11:59 11:59 Intake Total 2749 Balance 2749 Weight 81.647 kg 80.8 kg Lab Results: Accuchecks Date 02/14/18 Date 02/13/18 Time 07:15 Time 22:00 Accucheck Value: 61 Accucheck Value: 107 Accucheck Value: 130 Lab Results-Last 24 Hours 02/13/18 02/13/18 02/13/18 Range/Units 10:03 10:04 10:20 WBC 20.2 H (4.0-10.5) K/mm3 RBC 5.70 H (4.1-5.4) M/mm3 Hgb 18.3 H (12.0-16.0) gm/dl Hct 53.8 H (35-47) % MCV 94.4 (78-100) fl MCH 32.1 H (26-32) pg MCHC 34.0 (32-36) g/dl RDW 17.5 H (11.5-14.0) % Plt Count 262 (150-450) K/mm3 MPV 10.5 H (6-9.5) fl Gran % 93.4 H (36.0-66.0) % Eos # (Auto) 0.01 (0-0.5) Absolute Lymphs (auto) 0.71 L (1.0-4.6) Absolute Monos (auto) 0.60 (0.0-1.3) Lymphocytes % 3.5 L (24.0-44.0) % Monocytes % 3.0 (0.0-12.0) % Eosinophils % 0.0 (0.00-5.0) % Basophils % 0.1 (0.0-0.4) % Absolute Granulocytes 18.82 H (1.4-6.9) Basophils # 0.02 (0-0.4) Sodium 136 L (137-145) mmol/L Potassium 4.0 (3.5-5.1) mmol/L Chloride 100 (98-107) mmol/L Carbon Dioxide 27 (22-30) mmol/L Anion Gap 13.4 (5-15) MEQ/L BUN 36 H (7-17) mg/dL Creatinine 0.82 (0.52-1.04) mg/dL Estimated GFR > 60.0 ML/MIN Glucose 178 H (74-106) mg/dL Calcium 9.7 (8.4-10.2) mg/dL Total Bilirubin 0.80 (0.2-1.3) mg/dL AST 21 (14-36) U/L ALT 23 (0-35) U/L Alkaline Phosphatase 85 (38-126) U/L Serum Total Protein 6.1 L (6.3-8.2) g/dL Albumin 3.7 (3.5-5.0) g/dL Amylase 127 H (30-110) U/L Lipase 45 (23-300) U/L Ur Collection Type CATH Urine Color YELLOW (YELLOW) Urine Appearance CLOUDY (CLEAR) Urine pH 5.0 (5-6) Ur Specific [place] 1.015 (1.005-1.025) Urine Protein 50 (Negative) Urine Ketones SMALL (NEGATIVE) Urine Blood 250 (0-5) Soham/ul Urine Nitrite NEGATIVE (NEGATIVE) Urine Bilirubin NEGATIVE (NEGATIVE) Urine Urobilinogen NORMAL (0-1) mg/dL Ur Leukocyte Esterase TRACE (NEGATIVE) Urine Microscopic RBC 25-50 (0-2) /HPF Urine Microscopic WBC 10-15 (0-5) /HPF Ur Epithelial Cells RARE (FEW) /HPF Urine Bacteria MANY (NEGATIVE) /HPF Urine Culture Reflexed YES (NO) Urine Glucose NEGATIVE (NEGATIVE) mg/dL Stool Occult Blood (Negative) 02/13/18 02/14/18 02/14/18 Range/Units 10:30 04:00 05:10 WBC 12.5 H (4.0-10.5) K/mm3 RBC 4.70 (4.1-5.4) M/mm3 Hgb 15.3 (12.0-16.0) gm/dl Hct 45.7 (35-47) % MCV 97.2 (78-100) fl MCH 32.6 H (26-32) pg MCHC 33.5 (32-36) g/dl RDW 17.5 H (11.5-14.0) % Plt Count 218 (150-450) K/mm3 MPV 10.1 H (6-9.5) fl Gran % 87.1 H (36.0-66.0) % Eos # (Auto) 0.01 (0-0.5) Absolute Lymphs (auto) 0.99 L (1.0-4.6) Absolute Monos (auto) 0.58 (0.0-1.3) Lymphocytes % 7.9 L (24.0-44.0) % Monocytes % 4.7 (0.0-12.0) % Eosinophils % 0.1 (0.00-5.0) % Basophils % 0.2 (0.0-0.4) % Absolute Granulocytes 10.86 H (1.4-6.9) Basophils # 0.02 (0-0.4) Sodium 136 L (137-145) mmol/L Potassium 4.0 (3.5-5.1) mmol/L Chloride 102 (98-107) mmol/L Carbon Dioxide 31 H (22-30) mmol/L Anion Gap 7.3 (5-15) MEQ/L BUN 27 H (7-17) mg/dL Creatinine 0.80 (0.52-1.04) mg/dL Estimated GFR > 60.0 ML/MIN Glucose 60 L (74-106) mg/dL Calcium 8.5 (8.4-10.2) mg/dL Total Bilirubin 0.60 (0.2-1.3) mg/dL AST 14 (14-36) U/L ALT 17 (0-35) U/L Alkaline Phosphatase 52 (38-126) U/L Serum Total Protein 4.8 L (6.3-8.2) g/dL Albumin 2.7 L (3.5-5.0) g/dL Amylase (30-110) U/L Lipase (23-300) U/L Ur Collection Type Urine Color (YELLOW) Urine Appearance (CLEAR) Urine pH (5-6) Ur Specific [place] (1.005-1.025) Urine Protein (Negative) Urine Ketones (NEGATIVE) Urine Blood (0-5) Soham/ul Urine Nitrite (NEGATIVE) Urine Bilirubin (NEGATIVE) Urine Urobilinogen (0-1) mg/dL Ur Leukocyte Esterase (NEGATIVE) Urine Microscopic RBC (0-2) /HPF Urine Microscopic WBC (0-5) /HPF Ur Epithelial Cells (FEW) /HPF Urine Bacteria (NEGATIVE) /HPF Urine Culture Reflexed (NO) Urine Glucose (NEGATIVE) mg/dL Stool Occult Blood POSITIVE (Negative) Radiology Exams: Radiology Procedures Category Date Time Status ABDOMEN AND PELVIS W/0 CONTRAS [CT] Stat Exams 02/13/18 10:04 Completed Multi-Disciplinary Progress Notes: Multi-Disciplinary Progress Notes 02/13/18 16:45 Case Management Note by Rachel Llanes S/W LAY CAREGIVER SHERRILL AT THIS TIME- SHE REPORTS PATIENT DOES WELL AT HOME BY HERSELF AND SHE HELPS HER NEEDED. PATIENT HAS A SAFE HOME ENVIRONMENT WITH ABILITY TO MEET ALL NEEDS, DAUGHTER PROVIDES TRANSPORTATION AND PATIENT IS ABLE TO AFFORD MEDICATIONS. SHE AGREES [facility] WOULD BE GREAT TO GET STARTED FOR THE PATIENT TO HELP WITH BATHS AND MEDICATION MANAGEMENT PATIENT IS PRIMARILY HOMEBOUND. NOTIFIED THAT PROVIDER PREFERENCE LIST IS AT PATIENT'S BEDSIDE AND TO LET US KNOW WHAT COMPANY THEY WOULD LIKE TO USE AND WE CAN SET THAT UP FOR HER. SHE VERIFIED UNDERSTANDING AND STATED SHE WOULD BE IN TOUCH WITH US. Initialized on 02/13/18 16:45 - END OF NOTE 02/13/18 14:56 Pharmacy Note by Brant Pitt Please be aware of possible drug interaction with home meds: Prednisone and Mestinon. May increase muscle weakness. Initialized on 02/13/18 14:56 - END OF NOTE Assessment/Plan (1) Acute diverticulitis Current Visit: No Status: Acute Assessment & Plan: On IV clindamycin. WBC much improved. Will leave on CLD until abd pain improves. Code(s): K57.92 - DVTRCLI OF INTEST, PART UNSP, W/O PERF OR ABSCESS W/O BLEED (2) UTI (urinary tract infection) Current Visit: Yes Status: Acute Qualifiers: Urinary tract infection type: acute cystitis Assessment & Plan: With gram negative growth - so adding rocephin to her abx regimen. Code(s): N39.0 - URINARY TRACT INFECTION, SITE NOT SPECIFIED (3) Diabetes mellitus Current Visit: Yes Status: Acute Qualifiers: Diabetes mellitus type: type 2 Diabetes mellitus complication status: without complication Code(s): E11.9 - TYPE 2 DIABETES MELLITUS WITHOUT COMPLICATIONS (4) DVT prophylaxis Current Visit: No Status: Acute Code(s): PEJ8107 - (5) Hypertension Current Visit: No Status: Chronic Qualifiers: Hypertension type: essential hypertension Qualified Code(s): I10 - Essential (primary) hypertension Code(s): I10 - ESSENTIAL (PRIMARY) HYPERTENSION (6) Leukocytosis Current Visit: No Status: Acute Qualifiers: Leukocytosis type: unspecified Qualified Code(s): D72.829 - Elevated white blood cell count, unspecified Assessment & Plan: improved Code(s): D72.829 - ELEVATED WHITE BLOOD CELL COUNT, UNSPECIFIED
[2018-02-14] MEDS ORDERED: NON-FORMULARY ITEM (Omeprazole 20 Mg [Prilosec 20 Mg] 20 MG) PO SCH (10:00)
[2018-02-14] MEDS ORDERED: NON-FORMULARY ITEM (Aspirin [Aspirin] 81 MG) PO SCH (10:00)
[2018-02-14] MEDS ORDERED: NON-FORMULARY ITEM (Lisinopril/Hydrochlorothiazide [Lisinopril-Hctz 20-25 Mg Tab] 1 EACH) PO SCH (10:00)
[2018-02-14] MEDS: hydroDIURIL 25 MG PO SCH (10:05)
[2018-02-14] MEDS: Klor Con 10 MEQ PO SCH ×2 (10:05→22:36)
[2018-02-14] MEDS: Singulair 10 MG PO SCH (10:05)
[2018-02-14] MEDS: Zestril 20 MG PO SCH (10:05)
[2018-02-14] MEDS: ELIQUIS 2.5 MG TABLET PO SCH ×2 (10:05→22:35)
[2018-02-14] MEDS: ROCEPHIN 1 Gm-D5w 50 ml Bag** 1 G/50 ML IVPB IV SCH (10:05)
[2018-02-14] MEDS: DELTASONE 20 MG PO SCH (10:05)
[2018-02-14] MEDS: MAG-OX 400 PO SCH ×2 (10:05→22:36)
[2018-02-14] MEDS: Imdur 30 MG PO SCH (10:06)
[2018-02-14] MEDS: Protonix 40MG Tablet PO SCH (10:06)
[2018-02-14] MEDS: PATIENT OWN MEDICATION PO SCH ×3 (10:06→22:37)
[2018-02-14] MEDS: ECOTRIN 81 MG PO SCH (10:06)
[2018-02-14] MEDS: NORVASC 5 MG PO SCH (10:06)
--- NOTE | 2018-02-14 12:10 | XRAY ---
AP portable supine abdomen film from 02/14/2018. Comparison: CT of the abdomen and pelvis without IV contrast from 02/13/2018. Indication: Abdominal pain, history of diverticulitis. Findings: A pacer lead extends towards the apex of the right ventricle of the heart. There are a couple round densities projected over the upper central abdomen in the projection of L1 which may represent pills/capsules within the stomach lumen. The bowel gas pattern is nonspecific with some scattered bowel gas within the stomach, small bowel, and colon to the level of the rectum. A mild amount of stool is seen within the rectal vault. There is slight nonspecific prominence of a small bowel loop projecting over the left midabdomen as well as the medial aspect of the lower right abdomen. Again, gas is seen distally. This is nonspecific. No hepatosplenomegaly is seen. Some atherosclerotic vascular calcification is seen. Some small calcified phleboliths are seen within the lower left pelvis. The bones are demineralized. There is evidence of prior posterior surgical fusion at L4-L5. I again see bone demineralization, a lower lumbar rotary levoscoliosis, and moderate upper lumbar spondylosis. Mild degenerative changes are seen at the inferior aspect of both sacroiliac joints. The hip joints are adequately preserved for the patient's age. Impression: 1. Nonspecific bowel gas pattern, as described above. 2. Evidence of prior posterior lumbar fusion at L4-L5 representing no change. 3. The remainder of the findings appears unchanged.
[2018-02-14 15:35] LABS: 027 TOX PROD PRESUMPTIVE NEGATIVE (NEGATIVE); TOXIGENIC C. DIFF ORG NEGATIVE (NEGATIVE)
[2018-02-14] MEDS: NovoLOG Insulin SQ PRN (22:37)
[2018-02-15] MEDS: Sodium Chloride 0.9% 1000 ML 1,000 ML IV SCH (06:01)
[2018-02-15] MEDS: CLINDAMYCIN-D5W 600 MG/50 ML*** 600 MG/50 ML BAG IV SCH ×3 (06:01→21:33)
--- NOTE | 2018-02-15 08:37 | PCM.NOTE ---
Date and Time: 02/15/18 0834 Subjective Assessment: Abd was feeling better but now having 3/10 abd pain. Continues to have diarrhea , every time she eats. Has had chronic diarrhea for some time. C.d iff was neg. - Review of Systems Constitutional: No Fever Abdominal/Gastrointestinal: Abdominal Pain, Diarrhea, No Nausea, No Vomiting Objective Exam General Appearance: no apparent distress, alert (sitting up at bedside with breakfast tray (CLD)) Neurologic Exam: oriented x 3, cooperative Skin Exam: normal color, warm, dry, No rash Respiratory Exam: normal breath sounds, lungs clear, No crackles/rales, No rhonchi, No wheezing Cardiovascular Exam: regular rate/rhythm, normal heart sounds, No murmur Gastrointestinal/Abdomen Exam: soft, normal bowel sounds, No tenderness, No distention, No mass, No guarding, No rebound OBJECTIVE DATA Vital Signs: Vital Signs - 24 hr Temp Pulse Resp BP Pulse Ox 02/15/18 08:23 97 02/15/18 07:24 97.5 F 64 20 98/53 98 02/15/18 04:25 98.5 F 67 20 112/58 96 02/14/18 23:39 97.7 F 62 18 97/54 95 02/14/18 19:50 95 02/14/18 19:38 97.8 F 68 20 108/52 95 02/14/18 15:54 97.6 F 64 16 118/62 95 02/14/18 12:00 97.3 F 67 16 117/58 95 Oxygen-Last 24 hours O2 Percentage 2 Liters = 28% O2 Percentage 2 Liters = 28% O2 Percentage 2 Liters = 28% O2 Percentage 2 Liters = 28% O2 Percentage 2 Liters = 28% O2 Percentage 2 Liters = 28% Pain Assessment - Last Documented Pain Intensity 5 Pain Scale Used [facility] Intake and Output: Intake & Output 02/12/18 02/13/18 02/14/18 02/15/18 11:59 11:59 11:59 11:59 Intake Total 8113 4004 Balance 274 4004 Weight 81.647 kg 80.8 kg Lab Results: Accuchecks Date 02/14/18 Date 02/14/18 Date 02/14/18 Time 22:00 Time 16:30 Time 11:51 Accucheck Value: 213 Accucheck Value: 175 Accucheck Value: 110 Lab Results-Last 24 Hours 02/13/18 02/14/18 Range/Units 10:04 13:00 U Epithel Cells (Auto) Pending Stl C. diff Tox B Gene NEGATIVE (NEGATIVE) C.difficile [id number] PRESUMPTIVE NEGATIVE (NEGATIVE) Radiology Exams: Radiology Procedures Category Date Time Status ABDOMEN AND PELVIS W/0 CONTRAS [CT] Stat Exams 02/13/18 10:04 Completed KUB Routine Exams 02/14/18 11:54 Completed Multi-Disciplinary Progress Notes: Multi-Disciplinary Progress Notes 02/14/18 10:05 (created 02/14/18 10:41) Case Management Note by Lisa Mckeon FAXED REFERRAL TO [facility], CALL TO REPORT AND SPOKE WITH LD. LD REPORTS THAT THEIR STRAIGHTENING PRESS OPERATOR HELPER WILL CHECK TO SEE IF THEY HAVE STAFF IN THE AREA AND CAN PROVIDE SERVICES. REPORTS THAT THEY WILL CALL PUBLICITY MANAGER BACK TODAY WITH INFORMATION. Initialized on 02/14/18 10:41 - END OF NOTE 02/14/18 09:45 (created 02/14/18 10:15) Case Management Note by Lisa Mcekon VISITED WITH PT AND DAUGHTER, SHERRILL. REVIEWED DISCHARGE PLAN. PT AND DAUGHTER REPORT THAT THEY HAVE DECIDED ON [facility] SERVICES 1ST CHOICE AND [facility] 2ND CHOICE OF PROVIDERS. DENIES ADDNL NEEDS FOR DISCHARGE. DAUGHTER LIVES NEXT DOOR AND CAN ASSIST WITH NEEDS WELL. PLANS TO RETURN HOME TO PRE EPISODIC LEVEL OF [place]. Initialized on 02/14/18 10:15 - END OF NOTE Assessment/Plan (1) Acute diverticulitis Current Visit: Yes Status: Acute Onset Date: ~02/13/18 Assessment & Plan: On IV clindamycin with some improvement. Will likely need another couple of days of IV antibiotics. Code(s): K57.92 - DVTRCLI OF INTEST, PART UNSP, W/O PERF OR ABSCESS W/O BLEED (2) UTI (urinary tract infection) Current Visit: Yes Status: Acute Onset Date: ~02/13/18 Qualifiers: Urinary tract infection type: acute cystitis Assessment & Plan: K. pneumoniae susceptible to rocephin. On day #2 of rocephin. Needs at least 3d of IV tx for the UTI. Code(s): N39.0 - URINARY TRACT INFECTION, SITE NOT SPECIFIED (3) Diabetes mellitus Current Visit: Yes Status: Chronic Qualifiers: Diabetes mellitus type: type 2 Diabetes mellitus complication status: without complication Code(s): E11.9 - TYPE 2 DIABETES MELLITUS WITHOUT COMPLICATIONS (4) DVT prophylaxis Current Visit: Yes Status: Acute Onset Date: ~02/13/18 Assessment & Plan: on Eliquis Code(s): [id number] - (5) Hypertension Current Visit: No Status: Chronic Qualifiers: Hypertension type: essential hypertension Qualified Code(s): I10 - Essential (primary) hypertension Assessment & Plan: BP well controlled, occ having systolic under 100 but this is stable since her admission. Code(s): I10 - ESSENTIAL (PRIMARY) HYPERTENSION (6) Leukocytosis Current Visit: Yes Status: Acute Onset Date: ~02/13/18 Qualifiers: Leukocytosis type: unspecified Qualified Code(s): D72.829 - Elevated white blood cell count, unspecified Assessment & Plan: rechecking this morning. Code(s): D72.829 - ELEVATED WHITE BLOOD CELL COUNT, UNSPECIFIED
[2018-02-15 09:41] LABS: Granulocyte Absolute (ANC) 11.59 (1.4-6.9); Hematocrit 45.7 % (35-47); Hemoglobin 15.4 gm/dl (12.0-16.0); Mean Cell Volume 96.4 fl (78-100); Mean Corpuscular Hemoglobin 32.5 pg (26-32); Mean Corpuscular Hgb Concent. 33.7 g/dl (32-36); Mean Platelet Volume 10.1 fl (6-9.5); Platelet Count 197 K/mm3 (150-450); Red Blood Count 4.74 M/mm3 (4.1-5.4); Red Cell Distribution Width 17.1 % (11.5-14.0); White Blood Count 13.2 K/mm3 (4.0-10.5)
[2018-02-15 09:57] LABS: ANION GAP 8.9 MEQ/L (5-15); BLOOD UREA NITROGEN 14 mg/dL (7-17); CHLORIDE 102 mmol/L (98-107); Calcium 8.4 mg/dL (8.4-10.2); Carbon Dioxide 27 mmol/L (22-30); Creatinine 1 0.69 mg/dL (0.52-1.04); Glucose 152 mg/dL (74-106); Potassium 3.9 mmol/L (3.5-5.1); SODIUM 134 mmol/L (137-145)
[2018-02-15 10:55] LABS: Lymphocytes 8 % (24-44); Monocyte 2 % (0.0-12.0); Neutrophils 90 % (36.0-66.0); Platelet Estimate NORMAL (NORMAL); Total Cells Counted 100
[2018-02-15] MEDS: MORPHINE SULFATE 2 MG INJ IV PRN ×2 (11:12→21:44)
[2018-02-15] MEDS: ROCEPHIN 1 Gm-D5w 50 ml Bag** 1 G/50 ML IVPB IV SCH (11:15)
[2018-02-15] MEDS: Singulair 10 MG PO SCH (11:16)
[2018-02-15] MEDS: MAG-OX 400 PO SCH ×2 (11:16→21:33)
[2018-02-15] MEDS: ELIQUIS 2.5 MG TABLET PO SCH ×2 (11:16→21:33)
[2018-02-15] MEDS: DELTASONE 20 MG PO SCH (11:17)
[2018-02-15] MEDS: ECOTRIN 81 MG PO SCH (11:17)
[2018-02-15] MEDS: Imdur 30 MG PO SCH (11:17)
[2018-02-15] MEDS: Protonix 40MG Tablet PO SCH (11:18)
[2018-02-15] MEDS: ZOCOR 20MG PO SCH (11:18)
[2018-02-15] MEDS: hydroDIURIL 25 MG PO SCH (11:18)
[2018-02-15] MEDS: Zestril 20 MG PO SCH (11:18)
[2018-02-15] MEDS: PATIENT OWN MEDICATION PO SCH ×3 (11:19→21:35)
[2018-02-15] MEDS: SODIUM CHLORIDE 0.9% W/ 40 mEq KCL 1000ML 1,000 ML IV SCH (19:04)
[2018-02-16] MEDS: CLINDAMYCIN-D5W 600 MG/50 ML*** 600 MG/50 ML BAG IV SCH (05:21)
[2018-02-16 06:10] LABS: Hematocrit 46.3 % (35-47); Hemoglobin 15.5 gm/dl (12.0-16.0); Mean Cell Volume 95.7 fl (78-100); Mean Corpuscular Hgb Concent. 33.5 g/dl (32-36); Mean Platelet Volume 10.2 fl (6-9.5); Platelet Count 207 K/mm3 (150-450); Red Blood Count 4.84 M/mm3 (4.1-5.4); Red Cell Distribution Width 17.1 % (11.5-14.0); White Blood Count 11.4 K/mm3 (4.0-10.5)
[2018-02-16 06:54] LABS: ANION GAP 9.1 MEQ/L (5-15); BLOOD UREA NITROGEN 12 mg/dL (7-17); CHLORIDE 101 mmol/L (98-107); Calcium 8.4 mg/dL (8.4-10.2); Carbon Dioxide 28 mmol/L (22-30); Glucose 131 mg/dL (74-106); SODIUM 134 mmol/L (137-145)
[2018-02-16] MEDS: SODIUM CHLORIDE 0.9% W/ 40 mEq KCL 1000ML 1,000 ML IV SCH ×2 (07:25→21:21)
--- NOTE | 2018-02-16 08:19 | PCM.NOTE ---
Date and Time: 02/16/18813 Subjective Assessment: Abdomen feeling a bit better but she didn't eat all day yesterday due to fear of diarrhea. I did add lomotil but it doesn't sound as though she really used it yet. Objective Exam General Appearance: no apparent distress, alert, other (sitting on the bed with tray in front of her) Neurologic Exam: oriented x 3, cooperative Skin Exam: normal color, warm, dry, No rash Respiratory Exam: normal breath sounds, lungs clear, No crackles/rales, No rhonchi, No wheezing Cardiovascular Exam: regular rate/rhythm, normal heart sounds, No murmur Gastrointestinal/Abdomen Exam: soft, normal bowel sounds, tenderness (RUQ), No distention, No mass, No guarding, No rebound OBJECTIVE DATA Vital Signs: Vital Signs - 24 hr Temp Pulse Resp BP Pulse Ox 02/16/18 07:35 77 18 97 02/16/18 07:11 98.1 F 73 20 135/74 96 02/16/18 04:30 98.3 F 84 18 125/64 97 02/15/18 23:43 98.2 F 69 16 116/58 96 02/15/18 19:55 98.1 F 67 18 110/55 96 02/15/18 16:00 98.1 F 72 20 119/62 96 02/15/18 12:00 97.7 F 68 18 126/59 96 02/15/18 08:23 97 Oxygen-Last 24 hours O2 Percentage 2 Liters = 28% O2 Percentage 2 Liters = 28% O2 Percentage 2 Liters = 28% O2 Percentage 2 Liters = 28% O2 Percentage 2 Liters = 28% O2 Percentage 2 Liters = 28% Pain Assessment - Last Documented Pain Intensity 0 Pain Scale Used 0-10 Pain Scale Intake and Output: Intake & Output 02/13/18 02/14/18 02/15/18 02/16/18 11:59 11:59 11:59 11:59 Intake Total 9972 4643 2909 Balance 2745 4649 2902 Weight 81.647 kg 80.8 kg 80.8 kg Lab Results: Accuchecks Date 02/16/18 Date 02/15/18 Date 02/15/18 Time 07:00 Time 16:30 Time 11:30 Accucheck Value: 257 Accucheck Value: 229 Accucheck Value: 145 Lab Results-Last 24 Hours 02/13/18 02/15/18 02/15/18 Range/Units 10:04 08:47 09:29 WBC 13.2 H (4.0-10.5) K/mm3 RBC 4.74 (4.1-5.4) M/mm3 Hgb 15.4 (12.0-16.0) gm/dl Hct 45.7 (35-47) % MCV 96.4 (78-100) fl MCH 32.5 H (26-32) pg MCHC 33.7 (32-36) g/dl RDW 17.1 H (11.5-14.0) % Plt Count 197 (150-450) K/mm3 MPV 10.1 H (6-9.5) fl Absolute Granulocytes 11.59 H (1.4-6.9) Segmented Neutrophils 90 H (36.0-66.0) % Lymphocytes (Manual) 8 L (24-44) % Monocytes (Manual) 2 (0.0-12.0) % Platelet Estimate NORMAL (NORMAL) RBC Morphology NORMAL Sodium (137-145) mmol/L Potassium (3.5-5.1) mmol/L Chloride (98-107) mmol/L Carbon Dioxide (22-30) mmol/L Anion Gap (5-15) MEQ/L BUN (7-17) mg/dL Creatinine (0.52-1.04) mg/dL Estimated GFR ML/MIN Glucose (74-106) mg/dL Hemoglobin A1c (4.5-6.0) % Calcium (8.4-10.2) mg/dL Magnesium 2.1 (1.6-2.3) mg/dL U Epithel Cells (Auto) Not Reportable 02/15/18 02/15/18 02/16/18 Range/Units 09:29 09:30 05:23 WBC 11.4 H (4.0-10.5) K/mm3 RBC 4.84 (4.1-5.4) M/mm3 Hgb 15.5 (12.0-16.0) gm/dl Hct 46.3 (35-47) % MCV 95.7 (78-100) fl MCH 32.0 (26-32) pg MCHC 33.5 (32-36) g/dl RDW 17.1 H (11.5-14.0) % Plt Count 207 (150-450) K/mm3 MPV 10.2 H (6-9.5) fl Absolute Granulocytes (1.4-6.9) Segmented Neutrophils (36.0-66.0) % Lymphocytes (Manual) (24-44) % Monocytes (Manual) (0.0-12.0) % Platelet Estimate (NORMAL) RBC Morphology Sodium 134 L (137-145) mmol/L Potassium 3.9 (3.5-5.1) mmol/L Chloride 102 (98-107) mmol/L Carbon Dioxide 27 (22-30) mmol/L Anion Gap 8.9 (5-15) MEQ/L BUN 14 (7-17) mg/dL Creatinine 0.69 (0.52-1.04) mg/dL Estimated GFR > 60.0 ML/MIN Glucose 152 H (74-106) mg/dL Hemoglobin A1c 8.04 H (4.5-6.0) % Calcium 8.4 (8.4-10.2) mg/dL Magnesium (1.6-2.3) mg/dL U Epithel Cells (Auto) 02/16/18 Range/Units 05:23 WBC (4.0-10.5) K/mm3 RBC (4.1-5.4) M/mm3 Hgb (12.0-16.0) gm/dl Hct (35-47) % MCV (78-100) fl MCH (26-32) pg MCHC (32-36) g/dl RDW (11.5-14.0) % Plt Count (150-450) K/mm3 MPV (6-9.5) fl Absolute Granulocytes (1.4-6.9) Segmented Neutrophils (36.0-66.0) % Lymphocytes (Manual) (24-44) % Monocytes (Manual) (0.0-12.0) % Platelet Estimate (NORMAL) RBC Morphology Sodium 134 L (137-145) mmol/L Potassium 4.0 (3.5-5.1) mmol/L Chloride 101 (98-107) mmol/L Carbon Dioxide 28 (22-30) mmol/L Anion Gap 9.1 (5-15) MEQ/L BUN 12 (7-17) mg/dL Creatinine 0.60 (0.52-1.04) mg/dL Estimated GFR > 60.0 ML/MIN Glucose 131 H (74-106) mg/dL Hemoglobin A1c (4.5-6.0) % Calcium 8.4 (8.4-10.2) mg/dL Magnesium 2.0 (1.6-2.3) mg/dL U Epithel Cells (Auto) Radiology Exams: Radiology Procedures Category Date Time Status KUB Routine Exams 02/14/18 11:54 Completed Assessment/Plan (1) Acute diverticulitis Current Visit: Yes Status: Acute Onset Date: ~02/13/18 Assessment & Plan: Somewhat better, was started on IV clindamycin on admission due to her allergies , but will change to IV levaquin today. Will increase her diet a bit in case she finds the FLD more palatable. Code(s): K57.92 - DVTRCLI OF INTEST, PART UNSP, W/O PERF OR ABSCESS W/O BLEED (2) UTI (urinary tract infection) Current Visit: Yes Status: Acute Onset Date: ~02/13/18 Qualifiers: Urinary tract infection type: acute cystitis Assessment & Plan: also susceptible to levaquin. Has been on 2d of IV rocephin, which is being discontinued today. Code(s): N39.0 - URINARY TRACT INFECTION, SITE NOT SPECIFIED (3) Diabetes mellitus Current Visit: Yes Status: Chronic Qualifiers: Diabetes mellitus type: type 2 Diabetes mellitus complication status: without complication Assessment & Plan: A1c 8. Code(s): E11.9 - TYPE 2 DIABETES MELLITUS WITHOUT COMPLICATIONS (4) DVT prophylaxis Current Visit: Yes Status: Acute Onset Date: ~02/13/18 Assessment & Plan: on Eliquis. Code(s): [id number] - (5) Hypertension Current Visit: No Status: Chronic Qualifiers: Hypertension type: essential hypertension Qualified Code(s): I10 - Essential (primary) hypertension Assessment & Plan: BP just minimallyl increased since holding the amlodipine yesterday. Code(s): I10 - ESSENTIAL (PRIMARY) HYPERTENSION (6) Leukocytosis Current Visit: Yes Status: Resolved Onset Date: ~02/13/18 Qualifiers: Leukocytosis type: unspecified Qualified Code(s): D72.829 - Elevated white blood cell count, unspecified Code(s): D72.829 - ELEVATED WHITE BLOOD CELL COUNT, UNSPECIFIED
[2018-02-16 08:28] LABS: BAND 2 % (0.0-2.0); Lymphocytes 5 % (24-44); Monocyte 1 % (0.0-12.0); Neutrophils 92 % (36.0-66.0); Platelet Estimate NORMAL (NORMAL); Total Cells Counted 100
[2018-02-16] MEDS: Imdur 30 MG PO SCH (09:54)
[2018-02-16] MEDS: NORVASC 5 MG PO SCH (09:54)
[2018-02-16] MEDS: DELTASONE 20 MG PO SCH (09:55)
[2018-02-16] MEDS: ELIQUIS 2.5 MG TABLET PO SCH ×2 (09:55→21:21)
[2018-02-16] MEDS: ECOTRIN 81 MG PO SCH (09:55)
[2018-02-16] MEDS: Merrem 1 GM 1 G in Sodium Chloride 100ML MINI-BAG PLUS 100 ML IV SCH ×2 (09:55→21:21)
[2018-02-16] MEDS: hydroDIURIL 25 MG PO SCH (09:55)
[2018-02-16] MEDS: Protonix 40MG Tablet PO SCH (09:55)
[2018-02-16] MEDS: MAG-OX 400 PO SCH ×2 (09:55→21:21)
[2018-02-16] MEDS: Singulair 10 MG PO SCH (09:55)
[2018-02-16] MEDS: Zestril 20 MG PO SCH (09:55)
[2018-02-16] MEDS ORDERED: Levofloxacin 500MG/100ML D5W 500 MG/100 ML BAG IV SCH (10:00)
[2018-02-16] MEDS: PATIENT OWN MEDICATION PO SCH ×3 (10:01→21:22)
[2018-02-16] MEDS: NovoLOG Insulin SQ PRN ×3 (11:26→22:11)
[2018-02-16 13:06] LABS: 027 TOX PROD PRESUMPTIVE NEGATIVE (NEGATIVE); TOXIGENIC C. DIFF ORG NEGATIVE (NEGATIVE)
[2018-02-16 13:17] LABS: Source: Feces
[2018-02-16] MEDS: TYLENOL 325 MG PO PRN (21:42)
[2018-02-17] MEDS: DELTASONE 20 MG PO SCH (09:58)
[2018-02-17] MEDS: SODIUM CHLORIDE 0.9% W/ 40 mEq KCL 1000ML 1,000 ML IV SCH ×2 (09:58→22:36)
[2018-02-17] MEDS: Imdur 30 MG PO SCH (09:59)
[2018-02-17] MEDS: ECOTRIN 81 MG PO SCH (09:59)
[2018-02-17] MEDS: ELIQUIS 2.5 MG TABLET PO SCH ×2 (09:59→22:37)
[2018-02-17] MEDS: hydroDIURIL 25 MG PO SCH (09:59)
[2018-02-17] MEDS ORDERED: Zithromax 250 MG TABLET PO SCH ×2 (10:00)
[2018-02-17] MEDS: Klor Con 10 MEQ PO SCH ×2 (10:00→22:37)
[2018-02-17] MEDS: NORVASC 5 MG PO SCH (10:00)
[2018-02-17] MEDS: MAG-OX 400 PO SCH ×2 (10:00→22:37)
[2018-02-17] MEDS: PATIENT OWN MEDICATION PO SCH ×3 (10:01→22:37)
[2018-02-17] MEDS: Protonix 40MG Tablet PO SCH (10:02)
[2018-02-17] MEDS: ZOCOR 20MG PO SCH (10:03)
[2018-02-17] MEDS: Zestril 20 MG PO SCH (10:03)
[2018-02-17] MEDS: Singulair 10 MG PO SCH (10:03)
[2018-02-17] MEDS: Levofloxacin 500MG/100ML D5W 500 MG/100 ML BAG IV SCH (10:04)
[2018-02-17] MEDS: MORPHINE SULFATE 2 MG INJ IV PRN (10:08)
[2018-02-17] MEDS: Cleocin Phosphate IV 300 MG/50 ML*** 300 MG/50 ML IVPB IV SCH ×2 (14:41→22:36)
[2018-02-17] MEDS: xanAX 0.25 MG PO PRN (14:56)
[2018-02-17] MEDS: NovoLOG Insulin SQ PRN ×2 (16:47→22:36)
[2018-02-17] MEDS: TYLENOL 325 MG PO PRN (22:50)
[2018-02-17] MEDS: Lomotil PO PRN (23:31)
[2018-02-18] MEDS ORDERED: HYLENEX 150 UNITS INJECTION SQ ONE (05:25)
[2018-02-18] MEDS: Cleocin Phosphate IV 300 MG/50 ML*** 300 MG/50 ML IVPB IV SCH ×3 (05:32→21:44)
[2018-02-18] MEDS: Levofloxacin 500MG/100ML D5W 500 MG/100 ML BAG IV SCH (09:24)
[2018-02-18] MEDS: Zithromax 250 MG TABLET PO SCH (09:27)
[2018-02-18] MEDS: DELTASONE 20 MG PO SCH (09:28)
[2018-02-18] MEDS: Zestril 20 MG PO SCH (09:28)
[2018-02-18] MEDS: ELIQUIS 2.5 MG TABLET PO SCH ×2 (09:28→21:43)
[2018-02-18] MEDS: Protonix 40MG Tablet PO SCH (09:28)
[2018-02-18] MEDS: NORVASC 5 MG PO SCH (09:28)
[2018-02-18] MEDS: Klor Con 10 MEQ PO SCH ×2 (09:28→21:43)
[2018-02-18] MEDS: hydroDIURIL 25 MG PO SCH (09:28)
[2018-02-18] MEDS: Imdur 30 MG PO SCH (09:29)
[2018-02-18] MEDS: ECOTRIN 81 MG PO SCH (09:29)
[2018-02-18] MEDS: MAG-OX 400 PO SCH ×2 (09:29→21:44)
[2018-02-18] MEDS: Singulair 10 MG PO SCH (09:29)
[2018-02-18] MEDS: PATIENT OWN MEDICATION PO SCH ×3 (09:30→21:44)
[2018-02-18] MEDS: Lomotil PO PRN ×2 (12:35→21:53)
[2018-02-18] MEDS: SODIUM CHLORIDE 0.9% W/ 40 mEq KCL 1000ML 1,000 ML IV SCH (13:38)
[2018-02-18] MEDS: NovoLOG Insulin SQ PRN ×2 (16:29→21:47)
[2018-02-18] MEDS: TYLENOL 325 MG PO PRN (21:48)
[2018-02-19] MEDS: SODIUM CHLORIDE 0.9% W/ 40 mEq KCL 1000ML 1,000 ML IV SCH (02:33)
[2018-02-19] MEDS: Cleocin Phosphate IV 300 MG/50 ML*** 300 MG/50 ML IVPB IV SCH (05:44)
[2018-02-19 06:15] LABS: Hemoglobin 14.8 gm/dl (12.0-16.0); Mean Cell Volume 95.4 fl (78-100); Mean Corpuscular Hemoglobin 32.1 pg (26-32); Mean Corpuscular Hgb Concent. 33.6 g/dl (32-36); Mean Platelet Volume 10.5 fl (6-9.5); Platelet Count 227 K/mm3 (150-450); Red Blood Count 4.61 M/mm3 (4.1-5.4); Red Cell Distribution Width 17.6 % (11.5-14.0); White Blood Count 11.6 K/mm3 (4.0-10.5)
[2018-02-19 06:32] LABS: ALBUMIN 2.4 g/dL (3.5-5.0); ALKALINE PHOSPHATASE 88 U/L (38-126); ANION GAP 11.2 MEQ/L (5-15); BLOOD UREA NITROGEN 10 mg/dL (7-17); CHLORIDE 103 mmol/L (98-107); Calcium 8.6 mg/dL (8.4-10.2); Carbon Dioxide 28 mmol/L (22-30); Creatinine 1 0.47 mg/dL (0.52-1.04); Glucose 149 mg/dL (74-106); Potassium 4.4 mmol/L (3.5-5.1); SGOT/AST 17 U/L (14-36); SGPT/ALT 20 U/L (0-35); SODIUM 138 mmol/L (137-145); Total Protein 4.7 g/dL (6.3-8.2)
--- NOTE | 2018-02-19 09:00 | PCM.DS ---
Discharge Summary Date of Admission: 02/13/18 15:12 Admitting Physician: FERDINAND WHALEN Primary Care Provider: FERDINAND WHALEN Allergies Allergies Shellfish *RETIRED-09/12/12 [Shellfish] Allergy (Intermediate, Verified 11:08) Hives meperidine HCl [From Demerol] Allergy (Verified 10/15/17 11:08) metronidazole [From Flagyl] Allergy (Verified 10/15/17 11:08) Penicillins Allergy (Verified 10/15/17 11:08) hydralazine Adverse Reaction (Verified 10/15/17 11:08) CRAB Allergy (Uncoded 10/15/17 11:08) Hospital Summary - Hospital Course Hospital Course: Pt admitted for diverticulitis through [facility] (diverticulitis on CT abd/pelvis - no other acute findings) and found to have UTI as well. Initially was on clindamycin, then rocephin was added. After several days, clindamycin was changed to levaquin briefly, but with pt's myasthenia gravis we tried her on Iv meropenem first. The next day she felt worse so Dr. Diaz changed her to levaquin and clindamycin. She told Dr. Diaz that zithromax was the only thing that helped her so he did add zithromax. She is feeling better this morning. Ate breakfast. Continues, however, to have diarrhea when she eats. No longer having abd pain aside from some after she eats. Her stool studies were negative. She has actually been having diarrhea for months. Pt is nervous about going home wiht the diarrhea; wants to make sure she's "up and around better." Will admit to swing bed here for rehab and continued IV antibiotics; can try some other anti-diarrheals as well. - Vitals & Intake/Output Vital Signs: Vital Signs Temperature 98.0 F 02/19/18 07:35 Pulse Rate 80 02/19/18 07:35 Respiratory Rate 18 02/19/18 07:35 Blood Pressure 131/65 02/19/18 07:35 O2 Sat by Pulse Oximetry 95 02/19/18 07:35 Oxygen-Last Documented O2 Percentage 2 Liters = 28% Intake & Output: Intake & Output 02/16/18 02/17/18 02/18/18 02/19/18 11:59 11:59 11:59 11:59 Intake Total 3742 2916 1100 960 Output Total 850 400 400 Balance 3742 2066 700 560 - Lab Result Diagrams: 02/19/18 05:20 02/19/18 05:20 Lab Results-Last 24 Hrs: Accuchecks Date 02/18/18 Date 02/18/18 Date 02/18/18 Time 22:12 Time 16:30 Time 11:30 Accucheck Value: 286 Accucheck Value: 289 Accucheck Value: 192 Lab Results-Last 24 Hours 02/19/18 02/19/18 Range/Units 05:20 05:20 WBC 11.6 H (4.0-10.5) K/mm3 RBC 4.61 (4.1-5.4) M/mm3 Hgb 14.8 (12.0-16.0) gm/dl Hct 44.0 (35-47) % MCV 95.4 (78-100) fl MCH 32.1 H (26-32) pg MCHC 33.6 (32-36) g/dl RDW 17.6 H (11.5-14.0) % Plt Count 227 (150-450) K/mm3 MPV 10.5 H (6-9.5) fl Sodium 138 (137-145) mmol/L Potassium 4.4 (3.5-5.1) mmol/L Chloride 103 (98-107) mmol/L Carbon Dioxide 28 (22-30) mmol/L Anion Gap 11.2 (5-15) MEQ/L BUN 10 (7-17) mg/dL Creatinine 0.47 L (0.52-1.04) mg/dL Estimated GFR > 60.0 ML/MIN Glucose 149 H (74-106) mg/dL Calcium 8.6 (8.4-10.2) mg/dL Total Bilirubin 0.40 (0.2-1.3) mg/dL AST 17 (14-36) U/L ALT 20 (0-35) U/L Alkaline Phosphatase 88 (38-126) U/L Serum Total Protein 4.7 L (6.3-8.2) g/dL Albumin 2.4 L (3.5-5.0) g/dL Micro Results-Entire Visit: Microbiology 02/13/18 13:00 Stool Culture - Final Stool 02/13/18 10:30 Blood Culture Gram Stain - Final Blood Not Reportable Blood Culture - Final NO GROWTH 02/13/18 10:20 Blood Culture Gram Stain - Final Blood Not Reportable Blood Culture - Final NO GROWTH 02/13/18 10:04 Urine Culture - Final Urine, Catheterized Klebsiella Pneumoniae Accuchecks Date 02/18/18 Date 02/18/18 Date 02/18/18 Time 22:12 Time 16:30 Time 11:30 Accucheck Value: 286 Accucheck Value: 289 Accucheck Value: 192 - Procedures and Test Procedures and Tests throughout Hospitalization: Therapy Orders & Screens 02/13/18 12:13 Oxygen NASAL CANNULA 2 lpm Comment: 02/13/18 15:00 Respiratory Therapy Assessment DAILY Comment: Diagnosis: ACUTE SIGMOID DIVERTICULITIS Discharge Exam General Appearance: no apparent distress, alert, obese Neurologic Exam: oriented x 3, cooperative Skin Exam: normal color, warm, dry, No rash Ears, Nose, Throat Exam: moist mucous membranes Respiratory Exam: normal breath sounds, lungs clear, No crackles/rales, No rhonchi, No wheezing Cardiovascular Exam: regular rate/rhythm, normal heart sounds, No murmur Gastrointestinal/Abdomen Exam: soft, normal bowel sounds, No tenderness, No distention, No mass, No guarding, No rebound Extremity Exam: pedal edema (1+ LE edema bilat) Back Exam: normal inspection, No rash Final Diagnosis/Problem List - Final Discharge Diagnosis/Problem (1) Acute diverticulitis Current Visit: Yes Status: Acute Onset Date: ~02/13/18 Assessment & Plan: Improved, but still having diarrhea (may be hard to differentiate from chronic) . Will continue at least 10d of IV antibiotics. On levaquin and clindamycin. (2) UTI (urinary tract infection) Current Visit: Yes Status: Resolved Onset Date: ~02/13/18 (3) Diabetes mellitus Current Visit: Yes Status: Chronic (4) DVT prophylaxis Current Visit: Yes Status: Acute Onset Date: ~02/13/18 Assessment & Plan: on Eliquis (5) Hypertension Current Visit: No Status: Chronic (6) Leukocytosis Current Visit: Yes Status: Resolved Onset Date: ~02/13/18 (7) Diarrhea Current Visit: Yes Status: Chronic Assessment & Plan: will try loperamide as well. Has failed bentyl and lomotil. (8) Myasthenia gravis Current Visit: Yes Status: Chronic (9) Muscular deconditioning Current Visit: Yes Status: Acute - Discharge Disposition: Swing Bed @ [facility] Condition: Stable Prescriptions: No Action Folic Acid 0.8 mg PO DAILY Potassium Chloride 20 Meq [Klor-Con 20 MEQ] 20 meq PO BID Montelukast Sodium 10 mg PO DAILY Metformin HCl 1000 mg [Glucophage 1000 MG] 1,000 mg PO BID Magnesium Oxide 400 mg [Mag-Ox 400] 800 mg PO BID Lisinopril/Hydrochlorothiazide [Lisinopril-Hctz 20-25 mg Tab] 1 each PO DAILY Amlodipine Besylate 10 mg [Norvasc 10 MG] 10 mg PO DAILY Apixaban [Eliquis 5 mg Tablet] 5 mg PO BID Isosorbide Mononitrate 30 mg [Imdur 30 MG] 30 mg PO DAILY Omeprazole 20 MG [Prilosec 20 mg] 20 mg PO DAILY Alprazolam 0.25 mg [xanAX 0.25 MG] 0.25 mg PO TID PRN PRN Reason: Anxiety Simvastatin 40 mg [Zocor 40 mg] 40 mg PO UD Gatifloxacin/Prednisolone [Prednisolone 1%-Gatiflox 0.5%] 1 drop OP TID PRN Diphenoxylate HCl/Atropine [Diphenoxylate-Atrop 2.5-0.025] 1 each PO DAILY PRN PRN PRN Reason: Diarrhea Aspirin 81 mg PO DAILY Folic Acid 1 mg [Folate 1 mg] 2 tab PO DAILY Thiamine HCl 1 tab PO DAILY Folic Acid 1 tab PO DAILY Ubidecarenone [Co Q-10] 2 cap PO BID Calcium Citrate/Vitamin D3 [Citracal + D Caplet] 1 tab PO DAILY Sulfacetamide Sodium Ophth [Sodium Sulamyd Eye Drops 15 ml] 1 drop OP BID PRN PRN Reason: Pain Pyridostigmine [place] 30 mg PO TID Prednisone 20 mg [Deltasone 20 mg] 40 mg PO DAILY Mycophenolate Mofetil 1,000 mg PO BID Cholecalciferol (Vitamin D3) [Vitamin D3] 1,000 unit PO DAILY Follow up with: FERDINAND WHALEN [Primary Care Provider] - 1 Week
[2018-02-19] MEDS ORDERED: IMODIUM 2 MG PO PRN (09:02)
[2018-02-19] MEDS: Levofloxacin 500MG/100ML D5W 500 MG/100 ML BAG IV SCH (10:15)
[2018-02-19] MEDS: MAG-OX 400 PO SCH (10:15)
[2018-02-19] MEDS: Imdur 30 MG PO SCH (10:15)
[2018-02-19] MEDS: Protonix 40MG Tablet PO SCH (10:16)
[2018-02-19] MEDS: DELTASONE 20 MG PO SCH (10:16)
[2018-02-19] MEDS: Zestril 20 MG PO SCH (10:16)
[2018-02-19] MEDS: ZOCOR 20MG PO SCH (10:16)
[2018-02-19] MEDS: Klor Con 10 MEQ PO SCH (10:16)
[2018-02-19] MEDS: ELIQUIS 2.5 MG TABLET PO SCH (10:16)
[2018-02-19] MEDS: Singulair 10 MG PO SCH (10:16)
[2018-02-19] MEDS: Zithromax 250 MG TABLET PO SCH (10:17)
[2018-02-19] MEDS: hydroDIURIL 25 MG PO SCH (10:17)
[2018-02-19] MEDS: NORVASC 5 MG PO SCH (10:17)
[2018-02-19] MEDS: ECOTRIN 81 MG PO SCH (10:17)
[2018-02-19] MEDS: PATIENT OWN MEDICATION PO SCH (10:19)
[2018-02-19 13:32] VITALS: BP 108/57; PULSE 81; O2SAT 97
[2018-02-20] MEDS ORDERED: Levofloxacin 500 MG Tablet PO SCH (10:00)
== END 2018-02-19 14:37 | disposition swing bed (61) | DRG 392 ==
LOC: ED 09:39 → MED SURG 12:47 → OBSVTOIN 15:12
PROVIDERS: ADMIT Family Medicine; ATTEND Family Medicine
DX: K57.30 Diverticulosis of large intestine without perforation or abscess without bleeding (principal); N39.0 Urinary tract infection, site not specified; E78.00 Pure hypercholesterolemia, unspecified; D72.829 Elevated white blood cell count, unspecified; R19.7 Diarrhea, unspecified; G70.00 Myasthenia gravis without (acute) exacerbation; R29.898 Other symptoms and signs involving the musculoskeletal system; I10 Essential (primary) hypertension; E11.9 Type 2 diabetes mellitus without complications; F32.9 Major depressive disorder, single episode, unspecified; Z79.4 Long term (current) use of insulin; M19.90 Unspecified osteoarthritis, unspecified site; F41.9 Anxiety disorder, unspecified; Z23 Encounter for immunization; Z95.0 Presence of cardiac pacemaker; Z79.01 Long term (current) use of anticoagulants; Z79.899 Other long term (current) drug therapy
CPT/HCPCS: 36000; 36415; 74018; 74176; 80048; 80053; 81001; 82150; 82272; 82962; 83036; 83690; 83735; 85025; 85027; 87040; 87045; 87046; 87077; 87086; 87177; 87186; 87209; 87335; 87493; 90662; 94760; 96360; 96361; 96374; 96375; 99285; J0696; J1956; J2270; J2405; J3470; A9270-GY

== ENCOUNTER 2018-02-19 13:04 | Inpatient (IN) | payer MEDICARE, BC ==
[2018-02-19] MEDS ORDERED: MEDICATION INTERVENTION MC SCH (14:14)
[2018-02-19] MEDS ORDERED: SODIUM SULAMYD EYE DROPS 15 ML OP PRN (14:14)
[2018-02-19] MEDS ORDERED: xanAX 0.25 MG PO PRN (14:14)
[2018-02-19] MEDS: IMODIUM 2 MG PO PRN (15:44)
[2018-02-19] MEDS: PATIENT OWN MEDICATION PO SCH ×2 (17:21→21:26)
[2018-02-19] MEDS: NovoLOG Insulin SQ PRN ×2 (17:21→21:44)
[2018-02-19] MEDS: Klor Con 10 MEQ PO SCH (21:25)
[2018-02-19] MEDS: ELIQUIS 2.5 MG TABLET PO SCH (21:25)
[2018-02-19] MEDS: MAG-OX 400 PO SCH (21:25)
[2018-02-20 05:31] LABS: Granulocyte Absolute (ANC) 11.15 (1.4-6.9); Hematocrit 44.7 % (35-47); Hemoglobin 15.2 gm/dl (12.0-16.0); Mean Cell Volume 94.5 fl (78-100); Mean Corpuscular Hemoglobin 32.1 pg (26-32); Mean Platelet Volume 10.2 fl (6-9.5); Platelet Count 228 K/mm3 (150-450); Red Blood Count 4.73 M/mm3 (4.1-5.4); Red Cell Distribution Width 17.4 % (11.5-14.0); White Blood Count 13.2 K/mm3 (4.0-10.5)
[2018-02-20 05:50] LABS: ALBUMIN 2.7 g/dL (3.5-5.0); ALKALINE PHOSPHATASE 104 U/L (38-126); ANION GAP 9.2 MEQ/L (5-15); BLOOD UREA NITROGEN 12 mg/dL (7-17); CHLORIDE 98 mmol/L (98-107); Carbon Dioxide 31 mmol/L (22-30); Creatinine 1 0.51 mg/dL (0.52-1.04); Glucose 173 mg/dL (74-106); SGOT/AST 19 U/L (14-36); SGPT/ALT 22 U/L (0-35); SODIUM 134 mmol/L (137-145)
[2018-02-20] MEDS: hydroDIURIL 25 MG PO SCH (09:16)
[2018-02-20] MEDS: Klor Con 10 MEQ PO SCH ×2 (09:16→21:58)
[2018-02-20] MEDS: MAG-OX 400 PO SCH ×2 (09:16→21:58)
[2018-02-20] MEDS: DELTASONE 20 MG PO SCH (09:16)
[2018-02-20] MEDS: Protonix 40MG Tablet PO SCH (09:16)
[2018-02-20] MEDS: Singulair 10 MG PO SCH (09:16)
[2018-02-20] MEDS: Zestril 20 MG PO SCH (09:17)
[2018-02-20] MEDS: ELIQUIS 2.5 MG TABLET PO SCH ×2 (09:17→21:58)
[2018-02-20] MEDS: Zithromax 250 MG TABLET PO SCH (09:17)
[2018-02-20] MEDS: ECOTRIN 81 MG PO SCH (09:17)
[2018-02-20] MEDS: Imdur 30 MG PO SCH (09:17)
[2018-02-20] MEDS: NORVASC 5 MG PO SCH (09:17)
[2018-02-20] MEDS: Levofloxacin 500 MG Tablet PO SCH (09:17)
[2018-02-20] MEDS: PATIENT OWN MEDICATION PO SCH ×3 (09:18→22:02)
[2018-02-20 09:40] LABS: Lymphocytes 16 % (24-44); Monocyte 1 % (0.0-12.0); Neutrophils 83 % (36.0-66.0); Platelet Estimate NORMAL (NORMAL); Total Cells Counted 100
[2018-02-20] MEDS ORDERED: Aplisol ID ONE (10:00)
[2018-02-20] MEDS: NovoLOG Insulin SQ PRN ×2 (12:01→17:13)
[2018-02-20] MEDS: TYLENOL 325 MG PO PRN (22:09)
[2018-02-21] MEDS: BUMEX 1 MG PO SCH ×2 (09:23→17:07)
[2018-02-21] MEDS: NORVASC 5 MG PO SCH (09:23)
[2018-02-21] MEDS: Zestril 20 MG PO SCH (09:23)
[2018-02-21] MEDS: ZOCOR 20MG PO SCH (09:24)
[2018-02-21] MEDS: DELTASONE 20 MG PO SCH (09:24)
[2018-02-21] MEDS: MAG-OX 400 PO SCH ×2 (09:24→21:53)
[2018-02-21] MEDS: Zithromax 250 MG TABLET PO SCH (09:25)
[2018-02-21] MEDS: ECOTRIN 81 MG PO SCH (09:25)
[2018-02-21] MEDS: Klor Con 10 MEQ PO SCH ×2 (09:25→21:53)
[2018-02-21] MEDS: Singulair 10 MG PO SCH (09:25)
[2018-02-21] MEDS: Lomotil PO PRN (09:25)
[2018-02-21] MEDS: Levofloxacin 500 MG Tablet PO SCH (09:25)
[2018-02-21] MEDS: ELIQUIS 2.5 MG TABLET PO SCH ×2 (09:25→21:53)
[2018-02-21] MEDS: Protonix 40MG Tablet PO SCH (09:25)
[2018-02-21] MEDS: Imdur 30 MG PO SCH (09:25)
[2018-02-21] MEDS: hydroDIURIL 25 MG PO SCH (09:25)
[2018-02-21] MEDS: PATIENT OWN MEDICATION PO SCH ×3 (09:26→21:53)
[2018-02-21] MEDS: NovoLOG Insulin SQ PRN ×3 (12:45→21:54)
--- NOTE | 2018-02-21 16:15 | PCM.NOTE ---
Date and Time: 02/21/18 1608 Subjective Assessment: Her diarrhea quite x 1 night and now it has returned. She has several areas hidden by her pannus that keep getting stool and urine on them and are very red and excoriated. Her swelling is worse today in LE. She is evita po but it still causes her to have a BM. no relief with loperamide, lomotil, or bentyl. - Review of Systems Constitutional: No Fever Cardiac: Edema Abdominal/Gastrointestinal: Diarrhea, No Abdominal Pain Objective Exam General Appearance: no apparent distress, alert Neurologic Exam: oriented x 3, cooperative Skin Exam: normal color, warm, dry, other (3 scattered areas inferior to pannus , approx 2-4 cm each, with erythema, some mild erosion, no exudate) Ears, Nose, Throat Exam: moist mucous membranes Respiratory Exam: normal breath sounds, lungs clear, No crackles/rales, No rhonchi, No wheezing Cardiovascular Exam: regular rate/rhythm, normal heart sounds, No murmur Gastrointestinal/Abdomen Exam: soft, normal bowel sounds, tenderness (mild LLQ) , No distention, No mass, No guarding, No rebound Extremity Exam: pedal edema, swelling (3+ L>R) Back Exam: normal inspection, No rash OBJECTIVE DATA Vital Signs: Vital Signs - 24 hr Temp Pulse Resp BP Pulse Ox 02/21/18 07:31 98.2 F 81 18 141/80 96 02/20/18 20:09 97.8 F 88 18 127/67 96 Pain Assessment - Last Documented Pain Intensity 0 Pain Scale Used 0-10 Pain Scale Intake and Output: Intake & Output 02/19/18 02/20/18 02/21/18 02/22/18 11:59 11:59 11:59 11:59 Intake Total 1217 740 Balance 1217 740 Weight 80.8 kg Lab Results: Accuchecks Date 02/20/18 Time 21:30 Accucheck Value: 246 Accucheck Value: 166 Accucheck Value: 329 Accucheck Value: 264 Multi-Disciplinary Progress Notes: Multi-Disciplinary Progress Notes 02/20/18 16:43 Physical Therapy Note by Brooklyn Corona 2+ PEDAL EDEMA BOTH LEGS - NO SEROUS SEEPING NOTED - TUBIGRIP STOCKINETTE SLEEVES APPLIED FOR LIGHT COMPRESSION SUPPORT TO BOTH LOWER LEGS AND FEET. Initialized on 02/20/18 16:43 - END OF NOTE Assessment/Plan (1) wound Current Visit: Yes Status: Acute Assessment & Plan: on abd. Rivera placed today and barrier cream and silvadene to be used. (2) Lower extremity edema Current Visit: Yes Status: Acute Assessment & Plan: increase bumex today Code(s): R60.0 - LOCALIZED EDEMA (3) Acute diverticulitis Current Visit: No Status: Acute Onset Date: ~02/13/18 Assessment & Plan: still on levaquin; much improved. Code(s): K57.92 - DVTRCLI OF INTEST, PART UNSP, W/O PERF OR ABSCESS W/O BLEED (4) Muscular deconditioning Current Visit: No Status: Acute Assessment & Plan: walking well per RN report. Code(s): R29.898 - OTH SYMPTOMS AND SIGNS INVOLVING THE MUSCULOSKELETAL SYSTEM (5) Diarrhea Current Visit: No Status: Chronic Qualifiers: Diarrhea type: unspecified type Qualified Code(s): R19.7 - Diarrhea, unspecified Assessment & Plan: Will try starting her on viberzi if she can have her daughter pick it up. Will try cholestyramine. Code(s): R19.7 - DIARRHEA, UNSPECIFIED (6) Hypertension Current Visit: No Status: Chronic Qualifiers: Hypertension type: essential hypertension Assessment & Plan: stable Code(s): I10 - ESSENTIAL (PRIMARY) HYPERTENSION (7) Myasthenia gravis Current Visit: No Status: Chronic Assessment & Plan: will watch for increase in issues particularly with being on levaquin AND starting viberzi, potentially. Discussed with pt that MG can be an issue wiht diarrhea meds but I think she is ready to just try something. Code(s): G70.00 - MYASTHENIA GRAVIS WITHOUT (ACUTE) EXACERBATION
[2018-02-21] MEDS: QUESTRAN Light 4 GM Packet PO SCH (17:07)
[2018-02-21 22:52] LABS: Appearance CLEAR (CLEAR); Bilirubin NEGATIVE (NEGATIVE); Blood SMALL Ery/ul (0-5); Glucose NEGATIVE (NEGATIVE); Ketones NEGATIVE (NEGATIVE); Leukocyte Esterase NEGATIVE (NEGATIVE); Nitrite NEGATIVE (NEGATIVE); Protein,Urine Dip NEGATIVE (Negative); Specific Gravity 1.005 (1.005-1.025); Urobilinogen NEGATIVE mg/dL (0-1)
[2018-02-22] MEDS: QUESTRAN Light 4 GM Packet PO SCH ×2 (08:17→17:58)
[2018-02-22] MEDS: MAG-OX 400 PO SCH ×2 (09:49→22:29)
[2018-02-22] MEDS: DELTASONE 20 MG PO SCH (09:49)
[2018-02-22] MEDS: ELIQUIS 2.5 MG TABLET PO SCH ×2 (09:49→22:28)
[2018-02-22] MEDS: NORVASC 5 MG PO SCH (09:49)
[2018-02-22] MEDS: Levofloxacin 500 MG Tablet PO SCH (09:50)
[2018-02-22] MEDS: Zestril 20 MG PO SCH (09:50)
[2018-02-22] MEDS: Singulair 10 MG PO SCH (09:50)
[2018-02-22] MEDS: BUMEX 1 MG PO SCH ×2 (09:50→17:58)
[2018-02-22] MEDS: hydroDIURIL 25 MG PO SCH (09:50)
[2018-02-22] MEDS: Imdur 30 MG PO SCH (09:50)
[2018-02-22] MEDS: PATIENT OWN MEDICATION PO SCH ×3 (09:50→22:29)
[2018-02-22] MEDS: Klor Con 10 MEQ PO SCH ×2 (09:50→22:28)
[2018-02-22] MEDS: Protonix 40MG Tablet PO SCH (09:50)
[2018-02-22] MEDS: ECOTRIN 81 MG PO SCH (09:50)
[2018-02-22] MEDS: TYLENOL 325 MG PO PRN (11:02)
[2018-02-22] MEDS: NovoLOG Insulin SQ PRN ×3 (11:48→22:30)
[2018-02-23] MEDS: DELTASONE 20 MG PO SCH (09:51)
[2018-02-23] MEDS: ULTRAM 50 MG PO PRN (09:51)
[2018-02-23] MEDS: MAG-OX 400 PO SCH ×2 (09:52→22:20)
[2018-02-23] MEDS: ECOTRIN 81 MG PO SCH (09:53)
[2018-02-23] MEDS: Protonix 40MG Tablet PO SCH (09:53)
[2018-02-23] MEDS: BUMEX 1 MG PO SCH ×2 (09:53→16:22)
[2018-02-23] MEDS: NORVASC 5 MG PO SCH (09:53)
[2018-02-23] MEDS: hydroDIURIL 25 MG PO SCH (09:54)
[2018-02-23] MEDS: ZOCOR 20MG PO SCH (09:54)
[2018-02-23] MEDS: Klor Con 10 MEQ PO SCH ×2 (09:54→22:19)
[2018-02-23] MEDS: Singulair 10 MG PO SCH (09:55)
[2018-02-23] MEDS: ELIQUIS 2.5 MG TABLET PO SCH ×2 (09:55→22:20)
[2018-02-23] MEDS: Imdur 30 MG PO SCH (09:56)
[2018-02-23] MEDS: Zestril 20 MG PO SCH (09:56)
[2018-02-23] MEDS: PATIENT OWN MEDICATION PO SCH ×3 (09:56→22:20)
[2018-02-23] MEDS: QUESTRAN Light 4 GM Packet PO SCH ×2 (09:58→16:22)
[2018-02-23] MEDS: NovoLOG Insulin SQ PRN ×2 (16:24→22:21)
--- NOTE | 2018-02-23 19:17 | PCM.NOTE ---
Date and Time: 02/23/181908 Subjective Assessment: Pt is eating more. had a BM that was somewhat formed (more so than applesauce). has been having much less diarrhea on the cholestyramine but does not like the powder. Had an episode last night where she was disoriented, just kept repeating one word over and over. We did EKG, troponin, and CT head stat and afterward she became oriented again. She has had episodes most days this week, sometime from noon to 8 p.m. Rivera catheter was placed as her incontinence allowed urine to sit on the eroded areas of skin on her abdomen. She states the skin feels much better since that was done. - Review of Systems Constitutional: No Fever Abdominal/Gastrointestinal: Diarrhea Objective Exam General Appearance: no apparent distress, alert Neurologic Exam: oriented x 3, cooperative Skin Exam: other (lower abdomen with several areas o fmild erythema, no overt open areas but covered in barrier cream. There is some stool on the skin. Rivera catheter in place.) Eye Exam: eyes nml inspection Respiratory Exam: normal breath sounds, No crackles/rales, No rhonchi, No wheezing Cardiovascular Exam: normal heart sounds, irregular, No murmur Gastrointestinal/Abdomen Exam: soft, normal bowel sounds, tenderness (mild, epigastrum), No distention, No mass, No guarding, No rebound Extremity Exam: other Back Exam: normal inspection, No rash OBJECTIVE DATA Vital Signs: Vital Signs - 24 hr Temp Pulse Resp BP Pulse Ox 02/23/18 07:28 98.1 F 80 20 110/64 99 02/22/18 19:47 98.5 F 88 18 107/58 95 Pain Assessment - Last Documented Pain Intensity 5 Pain Scale Used 0-10 Pain Scale Intake and Output: Intake & Output 02/21/18 02/22/18 02/23/18 02/24/18 11:59 11:59 11:59 11:59 Intake Total 740 660 740 240 Output Total 2350 3100 1000 Balance 296 -7374 -9642 -802 Weight 81.2 kg Lab Results: Accuchecks Date 02/23/18 Date 02/23/18 Date 02/23/18 Time 16:30 Time 11:30 Time 07:30 Accucheck Value: 371 Accucheck Value: 309 Accucheck Value: 128 Accucheck Value: 395 Lab Results-Last 24 Hours 02/22/18 Range/Units 20:27 Troponin I < 0.012 (0.000-0.034) ng/mL Radiology Exams: Radiology Procedures Category Date Time Status HEAD WITHOUT CONTRAST [CT] Stat Exams 02/22/18 21:25 Completed Multi-Disciplinary Progress Notes: Multi-Disciplinary Progress Notes 02/23/18 12:40 (created 02/23/18 13:50) Case Management Note by Lisa Mckeon DISCHARGE PLAN REVIEWED WITH PT AND DAUGHTER, DISCUSSED TRANSITION TO [facility] FOR EXTENDED REHAB STAY ON DISCHARGE FROM SWING BED. PT/DAUGHTER ARE IN AGREEMENT FOR THIS PLAN. DAUGHTER REPORTS THAT THEY WILL LIKELY CHOOSE [facility], BUT REPORTS THAT HER BROTHER IS COMING TO [place] LATER TODAY AND HE IS P.O.A. REPORTS THAT THEY WILL DISCUSS A FAMILY AND MAKE A DECISION. DISCUSSED THAT THEY WOULD HAVE THE WEEKEND TO DISCUSS AND MAKE A DECISION BY MONDAY. PT/DAUGHTER AGREE WITH THIS PLAN. PT REPORTS THAT SHE REALIZES SHE NEEDS EXTRA REHAB/CARE UNTIL SHE IS READY TO DISCHARGE BACK HOME. Initialized on 02/23/18 13:50 - END OF NOTE Assessment/Plan (1) wound Current Visit: Yes Status: Acute Assessment & Plan: Much better with urine off the wound and barrier cream in place. (2) Lower extremity edema Current Visit: Yes Status: Chronic Code(s): R60.0 - LOCALIZED EDEMA (3) Acute diverticulitis Current Visit: No Status: Resolved Onset Date: ~02/13/18 Assessment & Plan: I did stop the Levaquin today; I was worried that with her MG it was having a deleterious effect on her mental status. Code(s): K57.92 - DVTRCLI OF INTEST, PART UNSP, W/O PERF OR ABSCESS W/O BLEED (4) Muscular deconditioning Current Visit: No Status: Chronic Assessment & Plan: She plans discharge on Mon or to [facility]TC[facility] and I agree. Code(s): R29.898 - OTH SYMPTOMS AND SIGNS INVOLVING THE MUSCULOSKELETAL SYSTEM (5) Diarrhea Current Visit: No Status: Chronic Qualifiers: Diarrhea type: unspecified type Qualified Code(s): R19.7 - Diarrhea, unspecified Assessment & Plan: Much better with cholestyramin. I do not see a pill form. Code(s): R19.7 - DIARRHEA, UNSPECIFIED (6) Hypertension Current Visit: No Status: Chronic Qualifiers: Hypertension type: essential hypertension Code(s): I10 - ESSENTIAL (PRIMARY) HYPERTENSION (7) Myasthenia gravis Current Visit: No Status: Chronic Assessment & Plan: She does not like the side effects of her meds. Will start weaning off some of the meds as possible. Will need to discuss some with pharmacy. Code(s): G70.00 - MYASTHENIA GRAVIS WITHOUT (ACUTE) EXACERBATION
[2018-02-23] MEDS: Lomotil PO PRN (22:19)
[2018-02-24] MEDS: QUESTRAN Light 4 GM Packet PO SCH ×2 (08:21→16:06)
[2018-02-24] MEDS: BUMEX 1 MG PO SCH ×2 (09:29→16:06)
[2018-02-24] MEDS: Imdur 30 MG PO SCH (09:29)
[2018-02-24] MEDS: MAG-OX 400 PO SCH ×2 (09:29→21:28)
[2018-02-24] MEDS: hydroDIURIL 25 MG PO SCH (09:29)
[2018-02-24] MEDS: Protonix 40MG Tablet PO SCH (09:29)
[2018-02-24] MEDS: Singulair 10 MG PO SCH (09:29)
[2018-02-24] MEDS: ELIQUIS 2.5 MG TABLET PO SCH ×2 (09:29→21:28)
[2018-02-24] MEDS: ECOTRIN 81 MG PO SCH (09:29)
[2018-02-24] MEDS: NORVASC 5 MG PO SCH (09:29)
[2018-02-24] MEDS: Klor Con 10 MEQ PO SCH ×2 (09:29→21:28)
[2018-02-24] MEDS: Zestril 20 MG PO SCH (09:30)
[2018-02-24] MEDS: DELTASONE 20 MG PO SCH (09:30)
[2018-02-24] MEDS: PATIENT OWN MEDICATION PO SCH ×2 (09:30→21:29)
[2018-02-24] MEDS: ULTRAM 50 MG PO PRN ×2 (10:58→15:36)
[2018-02-24] MEDS: NovoLOG Insulin SQ PRN ×2 (16:06→21:30)
[2018-02-25] MEDS: QUESTRAN Light 4 GM Packet PO SCH ×2 (08:07→16:52)
[2018-02-25] MEDS: hydroDIURIL 25 MG PO SCH (09:15)
[2018-02-25] MEDS: TYLENOL 325 MG PO PRN (09:15)
[2018-02-25] MEDS: ELIQUIS 2.5 MG TABLET PO SCH ×2 (09:16→21:22)
[2018-02-25] MEDS: MAG-OX 400 PO SCH ×2 (09:16→21:23)
[2018-02-25] MEDS: ZOCOR 20MG PO SCH (09:16)
[2018-02-25] MEDS: Imdur 30 MG PO SCH (09:16)
[2018-02-25] MEDS: Protonix 40MG Tablet PO SCH (09:17)
[2018-02-25] MEDS: Zestril 20 MG PO SCH (09:17)
[2018-02-25] MEDS: BUMEX 1 MG PO SCH ×2 (09:17→16:52)
[2018-02-25] MEDS: NORVASC 5 MG PO SCH (09:17)
[2018-02-25] MEDS: ECOTRIN 81 MG PO SCH (09:17)
[2018-02-25] MEDS: DELTASONE 20 MG PO SCH (09:17)
[2018-02-25] MEDS: Singulair 10 MG PO SCH (09:17)
[2018-02-25] MEDS: Klor Con 10 MEQ PO SCH ×2 (09:17→21:23)
[2018-02-25] MEDS: PATIENT OWN MEDICATION PO SCH ×2 (09:18→21:23)
[2018-02-25] MEDS: IMODIUM 2 MG PO PRN (10:48)
[2018-02-25] MEDS: ULTRAM 50 MG PO PRN (10:48)
[2018-02-25] MEDS: NovoLOG Insulin SQ PRN ×3 (11:52→21:23)
[2018-02-25] MEDS: Lomotil PO PRN (12:40)
[2018-02-26] MEDS ORDERED: Pepcid 20 MG PO PRN ×2 (00:43→07:00)
[2018-02-26 07:14] VITALS: BP 134/81; PULSE 81; O2SAT 90
[2018-02-26] MEDS: QUESTRAN Light 4 GM Packet PO SCH (07:43)
[2018-02-26] MEDS: TYLENOL 325 MG PO PRN (08:36)
[2018-02-26] MEDS: ECOTRIN 81 MG PO SCH (09:21)
[2018-02-26] MEDS: hydroDIURIL 25 MG PO SCH (09:21)
[2018-02-26] MEDS: BUMEX 1 MG PO SCH (09:21)
[2018-02-26] MEDS: MAG-OX 400 PO SCH (09:21)
[2018-02-26] MEDS: Protonix 40MG Tablet PO SCH (09:21)
[2018-02-26] MEDS: DELTASONE 20 MG PO SCH (09:21)
[2018-02-26] MEDS: Klor Con 10 MEQ PO SCH (09:21)
[2018-02-26] MEDS: Zestril 20 MG PO SCH (09:21)
[2018-02-26] MEDS: PATIENT OWN MEDICATION PO SCH (09:21)
[2018-02-26] MEDS: NORVASC 5 MG PO SCH (09:21)
[2018-02-26] MEDS: Imdur 30 MG PO SCH (09:21)
[2018-02-26] MEDS: ELIQUIS 2.5 MG TABLET PO SCH (09:21)
[2018-02-26] MEDS: Singulair 10 MG PO SCH (09:21)
[2018-02-26] MEDS: Lomotil PO PRN (11:39)
[2018-02-26] MEDS: NovoLOG Insulin SQ PRN (11:39)
--- NOTE | 2018-02-26 12:48 | XRAY ---
Indication: FDC placement. Comparison: October 15, 2017. Portable chest again demonstrates slight left hemidiaphragm elevation with adjacent atelectasis. Remaining lungs clear again with a few incidental calcified granulomas. Heart is not enlarged again with left-sided dual-lead pacemaker. Descending aorta remains tortuous. Bony thorax intact again with mild osteopenia and degenerative changes. Impression: Nonacute chest with chronic features.
--- NOTE | 2018-02-26 13:37 | PCM.DS ---
Discharge Summary Date of Admission: 02/19/18 14:37 Admitting Physician: FERDINAND WHALEN Primary Care Provider: FERDINAND WHALEN Allergies Allergies Shellfish *RETIRED-09/12/12 [Shellfish] Allergy (Intermediate, Verified 11:08) Hives meperidine HCl [From Demerol] Allergy (Verified 10/15/17 11:08) metronidazole [From Flagyl] Allergy (Verified 10/15/17 11:08) Penicillins Allergy (Verified 10/15/17 11:08) hydralazine Adverse Reaction (Verified 10/15/17 11:08) CRAB Allergy (Uncoded 10/15/17 11:08) Hospital Summary - Hospital Course Hospital Course: Pt was admitted from acute care bed with diverticulitis and UTI - was on IV levaquin which was stopped after several days when patient was having her altered mental status. Family was insistent that pt always improved with zithromax so po zpack was added. Pt had several days with brief altered mental status. CT head was negative for acute changes. Family felt perhaps her MG medications were involved and pt is interested in decreasing those. She had decreased stools initially with adding cholestyramine, but did have some diarrhea yesterday. Pt has several excoriated eroded areas on her pannus/lower abdomen; Aranda catheter was anchored to keep urine off the area and she has been cleaned of stool frequently. Barrier cream and zinc applied. There is improvement in appearance and she is in less pain. - Vitals & Intake/Output Vital Signs: Vital Signs Temperature 98.4 F 02/26/18 07:14 Pulse Rate 81 02/26/18 07:14 Respiratory Rate 18 02/26/18 07:14 Blood Pressure 134/81 02/26/18 07:14 O2 Sat by Pulse Oximetry 90 L 02/26/18 07:14 Intake & Output: Intake & Output 02/24/18 02/25/18 02/26/18 02/27/18 11:59 11:59 11:59 11:59 Intake Total 1090 600 550 Output Total 1850 1850 1025 Balance -760 -1250 -475 - Lab Result Diagrams: 02/20/18 05:00 02/20/18 05:00 Lab Results-Last 24 Hrs: Accuchecks Date 02/25/18 Date 02/25/18 Time 21:15 Time 16:30 Accucheck Value: 230 Accucheck Value: 136 Accucheck Value: 277 Accucheck Value: 352 Micro Results-Entire Visit: Accuchecks Date 02/25/18 Date 02/25/18 Time 21:15 Time 16:30 Accucheck Value: 230 Accucheck Value: 136 Accucheck Value: 277 Accucheck Value: 352 - Radiology Exams Ordered Rad Exams-Entire Visit: Radiology Procedures Category Date Time Status CHEST 1 VIEW (PORTABLE) Stat Exams 02/26/18 12:08 Completed - Procedures and Test Procedures and Tests throughout Hospitalization: Therapy Orders & Screens 02/19/18 14:14 PT Eval & Treat ( Order) ROUTINE Reason for Eval:: deconditioning r/t diverticulitis, Diagnosis: ACUTE SIGMOID DIVERTICULITIS 02/22/18 20:00 EKG Comment: Diagnosis: ACUTE SIGMOID DIVERTICULITIS Discharge Exam General Appearance: no apparent distress, alert, obese Neurologic Exam: oriented x 3, cooperative Skin Exam: warm, dry, other (lower abdomen with 3 small areas mild erythema and slight erosion approx 3mm R lower abd.), No rash Respiratory Exam: normal breath sounds, lungs clear, No crackles/rales, No rhonchi, No wheezing Cardiovascular Exam: regular rate/rhythm, normal heart sounds, No murmur Gastrointestinal/Abdomen Exam: soft, normal bowel sounds, No tenderness, No distention, No mass, No guarding, No rebound Extremity Exam: swelling (tr LE edema) Back Exam: normal inspection, No rash Final Diagnosis/Problem List - Final Discharge Diagnosis/Problem (1) wound Current Visit: Yes Status: Acute Assessment & Plan: much improved, continue keeping pt clean and using barrier cream and zinc daily until healed. (2) Lower extremity edema Current Visit: Yes Status: Chronic (3) Acute diverticulitis Current Visit: No Status: Resolved Onset Date: ~02/13/18 (4) Muscular deconditioning Current Visit: No Status: Chronic Assessment & Plan: to [facility] today for therapy. (5) Diarrhea Current Visit: No Status: Chronic Assessment & Plan: has seen some improvement on the cholestyramine. (6) Hypertension Current Visit: No Status: Chronic (7) Myasthenia gravis Current Visit: No Status: Chronic Assessment & Plan: I spoke with Dr. Minaya today. She must stay on the prednisone (to avoid bulbar sx of MG) but can stop the mycophenolate and the pyridostigmine (will keep some pyridostigmine prn in case of increased sx). He is seeing her already on Mar 28. (8) Physical deconditioning Current Visit: No Status: Acute (9) Diabetes mellitus Current Visit: No Status: Chronic Assessment & Plan: will change metformin to januvia in light of diarrhea. - Discharge Disposition: Skilled Care @ [facility] Condition: Stable Prescriptions: New Bumetanide 1 mg [Bumex 1 mg] 1 mg PO BID DIURETIC #60 tablet Cholestyramine (with Sugar) [Cholestyramine Powder] 4 gm PO BID #1 canister Sitagliptin Phosphate 50 MG [Januvia 50 MG] 50 mg PO DAILY #30 tablet Continue Folic Acid 0.8 mg PO DAILY Potassium Chloride 20 Meq [Klor-Con 20 MEQ] 20 meq PO BID Montelukast Sodium 10 mg PO DAILY Magnesium Oxide 400 mg [Mag-Ox 400] 800 mg PO BID Lisinopril/Hydrochlorothiazide [Lisinopril-Hctz 20-25 mg Tab] 1 each PO DAILY Amlodipine Besylate 10 mg [Norvasc 10 MG] 10 mg PO DAILY Apixaban [Eliquis 5 mg Tablet] 5 mg PO BID Isosorbide Mononitrate 30 mg [Imdur 30 MG] 30 mg PO DAILY Omeprazole 20 MG [Prilosec 20 mg] 20 mg PO DAILY Alprazolam 0.25 mg [xanAX 0.25 MG] 0.25 mg PO TID PRN PRN Reason: Anxiety Simvastatin 40 mg [Zocor 40 mg] 40 mg PO UD Gatifloxacin/Prednisolone [Prednisolone 1%-Gatiflox 0.5%] 1 drop OP TID PRN Diphenoxylate HCl/Atropine [Diphenoxylate-Atrop 2.5-0.025] 1 each PO DAILY PRN PRN PRN Reason: Diarrhea Aspirin 81 mg PO DAILY Folic Acid 1 mg [Folate 1 mg] 2 tab PO DAILY Thiamine HCl 1 tab PO DAILY Folic Acid 1 tab PO DAILY Ubidecarenone [Co Q-10] 2 cap PO BID Calcium Citrate/Vitamin D3 [Citracal + D Caplet] 1 tab PO DAILY Sulfacetamide Sodium Ophth [Sodium Sulamyd Eye Drops 15 ml] 1 drop OP BID PRN PRN Reason: Pain Prednisone 20 mg [Deltasone 20 mg] 40 mg PO DAILY Cholecalciferol (Vitamin D3) [Vitamin D3] 1,000 unit PO DAILY Changed Pyridostigmine [place] 30 mg PO TID PRN #60 tablet PRN Reason: difficulty swallowing Discontinued Metformin HCl 1000 mg [Glucophage 1000 MG] 1,000 mg PO BID Mycophenolate Mofetil 1,000 mg PO BID Additional Instructions: 1800 [facility] DIABETIC DIET ACCU CHECK ACHS PT/OT TO EVAL AND TREAT BARRIER CREAM AND ZINC OINTMENT TO PRESSURE AREA AND ABDOMINAL FOLDS ARANDA CATHETER CARE PER FACILITY Follow up with: FERDINAND WHALEN [Primary Care Provider] - 1 Week Forms: Transfer Record [facility]
[2018-03-03] MEDS ORDERED: Aplisol ID SCH (10:00)
== END 2018-02-26 14:05 | DRG 948 ==
LOC: MED SURG 14:37
PROVIDERS: ADMIT Family Medicine; ATTEND Family Medicine
DX: R60.0 Localized edema (principal); K57.92 Diverticulitis of intestine, part unspecified, without perforation or abscess without bleeding; R29.898 Other symptoms and signs involving the musculoskeletal system; R19.7 Diarrhea, unspecified; L89.152 Pressure ulcer of sacral region, stage 2; I10 Essential (primary) hypertension; G70.00 Myasthenia gravis without (acute) exacerbation
CPT/HCPCS: 36415; 70450; 71045; 80053; 81001; 82962; 84484; 85025; 93005; A6457; 97110-GP; A9270-GY

== ENCOUNTER 2018-03-09 08:53 | Inpatient (IN) | payer MEDICARE, BC ==
[2018-03-09] MEDS ORDERED: NovoLIN R SQ PRN (12:18)
[2018-03-09] MEDS ORDERED: Lactated Ringers 1,000 ML IV SCH (12:30)
[2018-03-09] MEDS ORDERED: Lactated Ringers 1,000 ML IV ONE (12:41)
[2018-03-09] MEDS ORDERED: ROCEPHIN 1 Gm-D5w 50 ml Bag** 1 G/50 ML IVPB IV ONE (12:45)
--- NOTE | 2018-03-09 12:56 | XRAY ---
Indication: Altered level of consciousness. High blood sugar. Comparison: February 26, 2018. Portable chest remains clear again with a few incidental calcified granulomas. Heart is not enlarged again with left-sided dual-lead pacemaker. Descending aorta remains tortuous. No new/acute findings. Impression: Stable nonacute chest with chronic features.
[2018-03-09] MEDS: NovoLOG Insulin SQ PRN ×2 (13:02→17:19)
[2018-03-09 13:05] LABS: Appearance CLOUDY (CLEAR); Bilirubin NEGATIVE (NEGATIVE); Blood LARGE Ery/ul (0-5); Glucose 150 mg/dL (NEGATIVE); Ketones NEGATIVE (NEGATIVE); Leukocyte Esterase LARGE (NEGATIVE); Nitrite NEGATIVE (NEGATIVE); Protein,Urine Dip NEGATIVE (Negative); Specific Gravity 1.008 (1.005-1.025); Urobilinogen NEGATIVE mg/dL (0-1)
[2018-03-09] MEDS ORDERED: xanAX 0.25 MG PO PRN (14:27)
[2018-03-09] MEDS ORDERED: PYRIDOSTIGMINE BROMIDE 30 MG PO PRN (14:27)
[2018-03-09] MEDS ORDERED: MEDICATION INTERVENTION MC SCH ×2 (15:15→15:30)
[2018-03-09 15:49] LABS: Lactic Acid 4.8 (0.4-2.0)
[2018-03-09] MEDS: NovoLOG Insulin SQ SCH ×2 (16:06→21:27)
--- NOTE | 2018-03-09 18:18 | PCM.HP ---
History of Present Illness - Chief Complaint Chief Complaint: hyponatremia, hyperglycemia, altered mental status, LACTIC ACIDOSIS Date: 03/09/18 History of Present Illness: is a 87 year old female. who was treated for diveritculitis and uti and released 11 days ago. She was noted to have intermittent confusion during her hospital stay. Her diabetic medication was changed from metformin to trajenta at discharge. She was sent to [facility] and was there for a few days before changing to [facility] on Monday. Since then she has had very high sugar readings up to the 500's she was othewise not complaining of any new problems but did have wound difficulties on her sacrum and pannus that were previously present prior to her half-way visit. She was becoming less alert and sleeping more. she continued to wake up communicate and eat but was prior to her hospitalization taking care of all her own affairs and currenlty was having great diffiulty. She had blood work done this am showing elevated wbc with bandemia and severe uremia. She was thus sent for direct admission for correction with iv hydration and search for source of infection. - Review of Systems Constitutional: Other (unable to obtain secondary to mental status. per nursing at [facility] + only for fatigue, intermittent confusion, and wounds on her sacrum and pannus) Medications & Allergies Home Medications: Home Medication List Lisinopril/Hydrochlorothiazide [Lisinopril-Hctz 20-25 mg Tab] 1 each PO DAILY [History Confirmed 03/09/18] Magnesium Oxide 400 mg [Mag-Ox 400] 800 mg PO BID 12/19/14 [History Confirmed 03/09/18] Montelukast Sodium 10 mg PO DAILY 12/19/14 [History Confirmed 03/09/18] Potassium Chloride 20 Meq [Klor-Con 20 MEQ] 20 meq PO BID 12/19/14 [History Confirmed 03/09/18] Apixaban [Eliquis 5 mg Tablet] 5 mg PO BID 06/24/16 [History Confirmed ] Isosorbide Mononitrate 30 mg [Imdur 30 MG] 30 mg PO DAILY 06/24/16 [ History Confirmed 03/09/18] Alprazolam 0.25 mg [xanAX 0.25 MG] 0.25 mg PO Q8H PRN 08/22/17 [History Confirmed 03/09/18] Simvastatin 40 mg [Zocor 40 mg] 20 mg PO DAILY 08/22/17 [History Confirmed 03/09] Aspirin 81 mg PO DAILY 02/13/18 [History Confirmed 03/09/18] Calcium Citrate/Vitamin D3 [Citracal + D Caplet] 1 tab PO DAILY 02/13/18 [ History Confirmed 03/09/18] Cholecalciferol (Vitamin D3) [Vitamin D3] 1,000 unit PO DAILY 02/13/18 [History Confirmed 03/09/18] Folic Acid 1 tab PO DAILY 02/13/18 [History Confirmed 03/09/18] Prednisone 20 mg [Deltasone 20 mg] 30 mg PO DAILY 02/13/18 [History Confirmed 03/09/18] Thiamine HCl 1 tab PO DAILY 02/13/18 [History Confirmed 03/09/18] Bumetanide 1 mg [Bumex 1 mg] 1 mg PO BID DIURETIC #60 tablet 02/26/18 [Rx Confirmed 03/09/18] Cholestyramine (with Sugar) [Cholestyramine Powder] 4 gm PO BID #1 canister 01/06 [Rx Confirmed 03/09/18] Pyridostigmine [place] 30 mg PO TID PRN #60 tablet 02/26/18 [Rx Confirmed ] Acetaminophen 325 mg [Tylenol 325 mg] 2 tab PO Q4H PRN 03/09/18 [History Confirmed 03/09/18] Glucagon 1 mg [GlucaGen 1 MG] 1 mg IM STAT 03/09/18 [History Confirmed ] Insulin Aspart [NovoLOG Insulin] 5 unit SQ TID 03/09/18 [History Confirmed ] Insulin Glargine,Hum.rec.anlog [Lantus] 30 unit SQ HS 03/09/18 [History Confirmed 03/09/18] Linagliptin [Tradjenta] 1 tab PO DAILY 03/09/18 [History Confirmed 03/09/18] PANTOPRAZOLE 40 mg Tablet [Protonix 40MG Tablet] 40 mg PO QAM 03/09/18 [ History Confirmed 03/09/18] Ubidecarenone [Coenzyme Q10] 4 cap PO BID 03/09/18 [History Confirmed 03/09/18] Allergies/Adverse Reactions: Allergies Allergy/AdvReac Type Severity Reaction Status Date / Time Shellfish *RETIRED-09/12/12 Allergy Intermediate Hives Verified 10/15/17 11:08 [Shellfish] meperidine HCl [From Demerol] Allergy Verified 10/15/17 11:08 metronidazole [From Flagyl] Allergy Verified 10/15/17 11:08 Penicillins Allergy Verified 10/15/17 11:08 hydralazine AdvReac Verified 10/15/17 11:08 CRAB Allergy Uncoded 10/15/17 11:08 - Past Medical History Past Medical History: Yes Neurological History: Other ENT History: Cataracts Cardiac History: Arrhythmia, High Cholesterol, Hypertension Respiratory History: No Pertinent History Endocrine Medical History: Diabetes Type II Musculoskelatal History: Arthritis, Degenerative Disk Disease GI Medical History: Diverticulitis, GERD History: No Pertinent History Pyscho-Social History: Anxiety, Depression Reproductive Disorders: No Pertinent History Comment: Pacemaker, anemia, myasthenia gravis - Female History Are you now?: No - Past Surgical History Past Surgical History: Yes Neuro Surgical History: No Pertinent History Cardiac History: Pacemaker Respiratory Surgery: No Pertinent History GI Surgical History: Appendectomy, Cholecystectomy Genitourinary Surgical Hx: No Pertinent History Musculskeletal Surgical Hx: Orthopedic Surgery Female Surgical History: Hysterectomy Other Surgical History: spinal stenosis surgery, rotator cuff right arm - Social History Smoking Status: Never smoker Exposure to second hand smoke: Yes Alcohol: None Drug Use: none Significant Family History: heart disease, diabetes - Physical Exam Vital Signs: Vital Signs - 24 hr Temp Pulse Resp BP Pulse Ox 03/09/18 16:00 98 F 84 21 95/50 94 L 03/09/18 13:08 97.9 F 85 21 91/50 95 03/09/18 12:38 97.9 F 85 21 91/50 95 General Appearance: no apparent distress, obese, other (will open eyes and track and answer questions correctly but only short answer and goes back to sleep) Neurologic Exam: cooperative, No slurred speech Eye Exam: PERRL/EOMI, eyes nml inspection, No scleral icterus, No pale conjunctivae Ears, Nose, Throat Exam: dry mucous membranes Neck Exam: normal inspection, non-tender, supple, full range of motion Respiratory Exam: normal breath sounds, lungs clear, No respiratory distress Cardiovascular Exam: regular rate/rhythm, normal heart sounds, normal peripheral pulses Gastrointestinal/Abdomen Exam: soft, normal bowel sounds, No tenderness, No distention, No mass, No guarding, No ecchymosis Back Exam: normal inspection, normal range of motion, No CVA tenderness, No vertebral tenderness Extremity Exam: normal inspection, normal range of motion, pelvis stable Skin Exam: normal color, warm, dry, No rash Lymphatic Exam: No adenopathy Results - Labs Lab/Micro Results: Accuchecks Date 03/09/18 Time 17:19 Accucheck Value: 268 Lab Results-Last 24 Hours 03/09/18 03/09/18 03/09/18 Range/Units 05:00 12:15 12:46 Lactic Acid 4.0 H (0.4-2.0) Prealbumin 16.85 L (17.6-36.0) mg/dL Urine Color YELLOW (YELLOW) Urine Appearance CLOUDY (CLEAR) Urine pH 7.0 (5-6) Ur Specific [place] 1.008 (1.005-1.025) Urine Protein NEGATIVE (Negative) Urine Ketones NEGATIVE (NEGATIVE) Urine Blood LARGE (0-5) Soham/ul Urine Nitrite NEGATIVE (NEGATIVE) Urine Bilirubin NEGATIVE (NEGATIVE) Urine Urobilinogen NEGATIVE (0-1) mg/dL Ur Leukocyte Esterase LARGE (NEGATIVE) Urine WBC (Auto) >100 (0-5) /HPF Urine RBC (Auto) >101 (0-2) /HPF U Hyaline Cast (Auto) 3-5 (0-2) /LPF U Epithel Cells (Auto) RARE (FEW) /HPF Urine Bacteria (Auto) FEW (NEGATIVE) /HPF U Non-Squamous Epi Cells RARE (FEW) /HPF Unidentified Crystals 10-25 (NEGATIVE) /HPF Other Casts (Auto) 10-25 (NEGATIVE) /LPF Urine Mucus (Auto) SLIGHT (NEGATIVE) /HPF Urine Culture Reflexed YES (NO) Urine Glucose 150 (NEGATIVE) mg/dL 03/09/18 Range/Units 14:29 Lactic Acid 4.8 H (0.4-2.0) Prealbumin (17.6-36.0) mg/dL Urine Color (YELLOW) Urine Appearance (CLEAR) Urine pH (5-6) Ur Specific [place] (1.005-1.025) Urine Protein (Negative) Urine Ketones (NEGATIVE) Urine Blood (0-5) Soham/ul Urine Nitrite (NEGATIVE) Urine Bilirubin (NEGATIVE) Urine Urobilinogen (0-1) mg/dL Ur Leukocyte Esterase (NEGATIVE) Urine WBC (Auto) (0-5) /HPF Urine RBC (Auto) (0-2) /HPF U Hyaline Cast (Auto) (0-2) /LPF U Epithel Cells (Auto) (FEW) /HPF Urine Bacteria (Auto) (NEGATIVE) /HPF U Non-Squamous Epi Cells (FEW) /HPF Unidentified Crystals (NEGATIVE) /HPF Other Casts (Auto) (NEGATIVE) /LPF Urine Mucus (Auto) (NEGATIVE) /HPF Urine Culture Reflexed (NO) Urine Glucose (NEGATIVE) mg/dL Accuchecks Date 03/09/18 Time 17:19 Accucheck Value: 268 - Radiology Impressions Radiology Exams & Impressions: Radiology Procedures Category Date Time Status CHEST 1 VIEW (PORTABLE) Routine Exams 03/09/18 12:15 Completed HEAD WITHOUT CONTRAST [CT] Stat Exams 03/09/18 17:07 Taken Assessment/Plan (1) Acute kidney injury Current Visit: Yes Status: Acute Assessment & Plan: she was on bumex and lisinopril/hctz these are stopped now and working rehydration treated with 2L LR bolus and LR at 125 mL/h has chronic mahan catheter monitor I/O the uremia is suspected etiology of her encephalopathy check head ct with her dual anticaogulation on eliquis and aspirin but no known falls or head injuries. also treating UTI based on last culture with ceftriaxone and she was previously on levaquin and azithromycin it appears she does not have physical exam findings to support diverticulitis currently with normal abdominal exam yesterday and today. Her daughters note that she has expressed her wishes to be weaned off the prednisone that is prescribed chronically by Dr. Nguyễn for her myasthenia gravis he has recommended she stay on this but she and her daughters note she would rather succumb to the myashtenia then continue taking the high dose prednisone it was decreased from 40 mg daily to 30 mg daily yesterday. We did discuss she may need stress dosed steroid if concern for sepsis worsens despite rehydration. Code(s): N17.9 - ACUTE KIDNEY FAILURE, UNSPECIFIED (2) Acute metabolic encephalopathy Current Visit: Yes Status: Acute Code(s): G93.41 - METABOLIC ENCEPHALOPATHY (3) Dehydration Current Visit: Yes Status: Acute Onset Date: ~03/09/18 Code(s): E86.0 - DEHYDRATION (4) Lactic acid acidosis Current Visit: Yes Status: Acute Onset Date: ~03/09/18 Code(s): E87.2 - ACIDOSIS (5) Uncontrolled type 2 diabetes mellitus Current Visit: Yes Status: Acute Qualifiers: Glycemic state: with hyperglycemia Qualified Code(s): E11.65 - Type 2 diabetes mellitus with hyperglycemia Code(s): E11.65 - TYPE 2 DIABETES MELLITUS WITH HYPERGLYCEMIA (6) Myasthenia gravis Current Visit: Yes Status: Chronic Code(s): G70.00 - MYASTHENIA GRAVIS WITHOUT (ACUTE) EXACERBATION (7) UTI (urinary tract infection) Current Visit: No Status: Resolved Onset Date: ~02/13/18 Qualifiers: Urinary tract infection type: acute cystitis Code(s): N39.0 - URINARY TRACT INFECTION, SITE NOT SPECIFIED
[2018-03-09] MEDS: Lactated Ringers 1,000 ML IV SCH (19:29)
[2018-03-09] MEDS: ELIQUIS 2.5 MG TABLET PO SCH (21:26)
[2018-03-09] MEDS: ZOCOR 20MG PO SCH (21:26)
[2018-03-09] MEDS ORDERED: UBIDECARENONE PO SCH (22:00)
[2018-03-09] MEDS ORDERED: NON-FORMULARY ITEM (Apixaban*** [Eliquis 5 Mg Tablet***] 5 MG) PO SCH (22:00)
--- NOTE | 2018-03-09 22:13 | XRAY ---
Indication: Acute mental status change. Unresponsive and unable to follow instructions. Multiple contiguous axial images obtained through the head without contrast. Comparison: February 22, 2018. Stable age appropriate global atrophy and moderate periventricular degenerative micro-ischemia. No acute intracranial hemorrhage, abnormal extra-axial fluid collection, or mass effect. Fourth ventricle is midline without hydrocephalus. Bony calvarium intact. Visualized paranasal sinuses and mastoid air cells are clear. Impression: Stable nonacute senile brain. Comment: Preliminary interpretation was made by [facility]. No discrepancy. CTDI 65.18
[2018-03-09] MEDS: Lantus Insulin SQ SCH (23:37)
[2018-03-10] MEDS: Lactated Ringers 1,000 ML IV SCH ×2 (04:07→12:31)
[2018-03-10 05:52] LABS: Granulocyte Absolute (ANC) 12.02 (1.4-6.9); Hematocrit 40.9 % (35-47); Hemoglobin 13.5 gm/dl (12.0-16.0); Mean Cell Volume 94.2 fl (78-100); Mean Corpuscular Hemoglobin 31.1 pg (26-32); Mean Platelet Volume 11.6 fl (6-9.5); Platelet Count 187 K/mm3 (150-450); Red Blood Count 4.34 M/mm3 (4.1-5.4); Red Cell Distribution Width 16.7 % (11.5-14.0); White Blood Count 14.8 K/mm3 (4.0-10.5)
[2018-03-10 06:04] LABS: ALBUMIN 2.4 g/dL (3.5-5.0); ALKALINE PHOSPHATASE 96 U/L (38-126); ANION GAP 8.7 MEQ/L (5-15); BLOOD UREA NITROGEN 65 mg/dL (7-17); CHLORIDE 85 mmol/L (98-107); Calcium 9.4 mg/dL (8.4-10.2); Carbon Dioxide 38 mmol/L (22-30); Creatinine 1 0.86 mg/dL (0.52-1.04); Glucose 112 mg/dL (74-106); SGOT/AST 29 U/L (14-36); SGPT/ALT 24 U/L (0-35); SODIUM 129 mmol/L (137-145); Total Protein 4.7 g/dL (6.3-8.2)
[2018-03-10 08:38] LABS: ANISOCYTOSIS 1+; Lymphocytes 12 % (24-44); Monocyte 4 % (0.0-12.0); Neutrophils 84 % (36.0-66.0); Platelet Estimate NORMAL (NORMAL); Total Cells Counted 100; Toxic Granulation 1+
[2018-03-10] MEDS ORDERED: NON-FORMULARY ITEM (Simvastatin 40 Mg [Zocor 40 Mg] 20 MG) PO SCH (10:00)
[2018-03-10] MEDS ORDERED: FOLIC ACID PO SCH (10:00)
[2018-03-10] MEDS ORDERED: THIAMINE HCL PO SCH (10:00)
[2018-03-10] MEDS ORDERED: NON-FORMULARY ITEM (Aspirin [Aspirin] 81 MG) PO SCH (10:00)
[2018-03-10] MEDS: POTASSIUM CHLORIDE 20 mEq IN WATER 100ML 20 MEQ/100 ML BAG IV SCH ×2 (10:10→12:28)
--- NOTE | 2018-03-10 10:11 | PCM.NOTE ---
Date and Time: 03/10/18 1011 Subjective Assessment: Her daughter is at the bedside. She reports before her first hospitalization, she was independant at home. She reports her mom is not talking to her much but has answered some questions for nursing. She will discuss with family if they want her to be full code as in the past patient did not want intubated but said she would have chest compressions however we cannot separate the two here. - Review of Systems All Other Systems: Unable due to condition (Patient does state she has a headache and abdominal pain; she then stopped answering questions.) Objective Exam General Appearance: lethargy Neurologic Exam: cooperative, other (oriented to year and name and when asked where she is, she says [place], [place]. When asked, she says she does not know who the president of the [employer] is.) Skin Exam: normal color, warm, dry Respiratory Exam: normal breath sounds, lungs clear, other (ausculated anteriorly) Cardiovascular Exam: regular rate/rhythm, normal heart sounds, No murmur, No friction rub, No gallop Gastrointestinal/Abdomen Exam: soft, other (mild tenderness), No distention, No mass, No guarding Extremity Exam: other (+3 edema to knees bilat, swelling of hands bilat too, +2 radial pulses bilat) OBJECTIVE DATA Vital Signs: Vital Signs - 24 hr Temp Pulse Resp BP Pulse Ox 03/10/18 07:59 99.0 F 88 20 100/58 91 L 03/10/18 04:00 99.0 F 86 20 101/50 92 L 03/10/18 00:00 98.4 F 79 15 90/50 92 L 03/09/18 20:00 98.0 F 76 18 93/58 95 03/09/18 16:00 98 F 84 21 95/50 94 L 03/09/18 13:08 97.9 F 85 21 91/50 95 03/09/18 12:38 97.9 F 85 21 91/50 95 Pain Assessment - Last Documented Pain Scale Used [facility] Intake and Output: Intake & Output 03/08/18 03/09/18 03/10/18 03/11/18 06:59 06:59 06:59 06:59 Intake Total 1429 Output Total 750 1700 Balance -750 -271 Weight 73.6 kg Lab Results: Accuchecks Date 03/09/18 Date 03/09/18 Time 22:00 Time 17:19 Accucheck Value: 90 Accucheck Value: 268 Lab Results-Last 24 Hours 03/09/18 03/09/18 03/09/18 Range/Units 05:00 12:15 12:46 WBC (4.0-10.5) K/mm3 RBC (4.1-5.4) M/mm3 Hgb (12.0-16.0) gm/dl Hct (35-47) % MCV (78-100) fl MCH (26-32) pg MCHC (32-36) g/dl RDW (11.5-14.0) % Plt Count (150-450) K/mm3 MPV (6-9.5) fl Absolute Granulocytes (1.4-6.9) Segmented Neutrophils (36.0-66.0) % Lymphocytes (Manual) (24-44) % Monocytes (Manual) (0.0-12.0) % Toxic Granulation Platelet Estimate (NORMAL) RBC Morphology Anisocytosis Sodium (137-145) mmol/L Potassium (3.5-5.1) mmol/L Chloride (98-107) mmol/L Carbon Dioxide (22-30) mmol/L Anion Gap (5-15) MEQ/L BUN (7-17) mg/dL Creatinine (0.52-1.04) mg/dL Estimated GFR ML/MIN Glucose (74-106) mg/dL Lactic Acid 4.0 H (0.4-2.0) Calcium (8.4-10.2) mg/dL Magnesium (1.6-2.3) mg/dL Total Bilirubin (0.2-1.3) mg/dL AST (14-36) U/L ALT (0-35) U/L Alkaline Phosphatase (38-126) U/L Serum Total Protein (6.3-8.2) g/dL Albumin (3.5-5.0) g/dL Prealbumin 16.85 L (17.6-36.0) mg/dL Urine Color YELLOW (YELLOW) Urine Appearance CLOUDY (CLEAR) Urine pH 7.0 (5-6) Ur Specific [place] 1.008 (1.005-1.025) Urine Protein NEGATIVE (Negative) Urine Ketones NEGATIVE (NEGATIVE) Urine Blood LARGE (0-5) Soham/ul Urine Nitrite NEGATIVE (NEGATIVE) Urine Bilirubin NEGATIVE (NEGATIVE) Urine Urobilinogen NEGATIVE (0-1) mg/dL Ur Leukocyte Esterase LARGE (NEGATIVE) Urine WBC (Auto) >100 (0-5) /HPF Urine RBC (Auto) >101 (0-2) /HPF U Hyaline Cast (Auto) 3-5 (0-2) /LPF U Epithel Cells (Auto) RARE (FEW) /HPF Urine Bacteria (Auto) FEW (NEGATIVE) /HPF U Non-Squamous Epi Cells RARE (FEW) /HPF Unidentified Crystals 10-25 (NEGATIVE) /HPF Other Casts (Auto) 10-25 (NEGATIVE) /LPF Urine Mucus (Auto) SLIGHT (NEGATIVE) /HPF Urine Culture Reflexed YES (NO) Urine Glucose 150 (NEGATIVE) mg/dL 03/09/18 03/10/18 03/10/18 Range/Units 14:29 05:15 05:44 WBC 14.8 H (4.0-10.5) K/mm3 RBC 4.34 (4.1-5.4) M/mm3 Hgb 13.5 (12.0-16.0) gm/dl Hct 40.9 (35-47) % MCV 94.2 (78-100) fl MCH 31.1 (26-32) pg MCHC 33.0 (32-36) g/dl RDW 16.7 H (11.5-14.0) % Plt Count 187 (150-450) K/mm3 MPV 11.6 H (6-9.5) fl Absolute Granulocytes 12.02 H (1.4-6.9) Segmented Neutrophils 84 H (36.0-66.0) % Lymphocytes (Manual) 12 L (24-44) % Monocytes (Manual) 4 (0.0-12.0) % Toxic Granulation 1+ Platelet Estimate NORMAL (NORMAL) RBC Morphology ABNORMAL Anisocytosis 1+ Sodium (137-145) mmol/L Potassium (3.5-5.1) mmol/L Chloride (98-107) mmol/L Carbon Dioxide (22-30) mmol/L Anion Gap (5-15) MEQ/L BUN (7-17) mg/dL Creatinine (0.52-1.04) mg/dL Estimated GFR ML/MIN Glucose (74-106) mg/dL Lactic Acid 4.8 H (0.4-2.0) Calcium (8.4-10.2) mg/dL Magnesium 2.5 H (1.6-2.3) mg/dL Total Bilirubin (0.2-1.3) mg/dL AST (14-36) U/L ALT (0-35) U/L Alkaline Phosphatase (38-126) U/L Serum Total Protein (6.3-8.2) g/dL Albumin (3.5-5.0) g/dL Prealbumin (17.6-36.0) mg/dL Urine Color (YELLOW) Urine Appearance (CLEAR) Urine pH (5-6) Ur Specific [place] (1.005-1.025) Urine Protein (Negative) Urine Ketones (NEGATIVE) Urine Blood (0-5) Soham/ul Urine Nitrite (NEGATIVE) Urine Bilirubin (NEGATIVE) Urine Urobilinogen (0-1) mg/dL Ur Leukocyte Esterase (NEGATIVE) Urine WBC (Auto) (0-5) /HPF Urine RBC (Auto) (0-2) /HPF U Hyaline Cast (Auto) (0-2) /LPF U Epithel Cells (Auto) (FEW) /HPF Urine Bacteria (Auto) (NEGATIVE) /HPF U Non-Squamous Epi Cells (FEW) /HPF Unidentified Crystals (NEGATIVE) /HPF Other Casts (Auto) (NEGATIVE) /LPF Urine Mucus (Auto) (NEGATIVE) /HPF Urine Culture Reflexed (NO) Urine Glucose (NEGATIVE) mg/dL 03/10/18 03/10/18 Range/Units 05:44 05:45 WBC (4.0-10.5) K/mm3 RBC (4.1-5.4) M/mm3 Hgb (12.0-16.0) gm/dl Hct (35-47) % MCV (78-100) fl MCH (26-32) pg MCHC (32-36) g/dl RDW (11.5-14.0) % Plt Count (150-450) K/mm3 MPV (6-9.5) fl Absolute Granulocytes (1.4-6.9) Segmented Neutrophils (36.0-66.0) % Lymphocytes (Manual) (24-44) % Monocytes (Manual) (0.0-12.0) % Toxic Granulation Platelet Estimate (NORMAL) RBC Morphology Anisocytosis Sodium 129 L (137-145) mmol/L Potassium 3.0 L (3.5-5.1) mmol/L Chloride 85 L (98-107) mmol/L Carbon Dioxide 38 H (22-30) mmol/L Anion Gap 8.7 (5-15) MEQ/L BUN 65 H (7-17) mg/dL Creatinine 0.86 (0.52-1.04) mg/dL Estimated GFR > 60.0 ML/MIN Glucose 112 H (74-106) mg/dL Lactic Acid 1.2 (0.4-2.0) Calcium 9.4 (8.4-10.2) mg/dL Magnesium (1.6-2.3) mg/dL Total Bilirubin 0.70 (0.2-1.3) mg/dL AST 29 (14-36) U/L ALT 24 (0-35) U/L Alkaline Phosphatase 96 (38-126) U/L Serum Total Protein 4.7 L (6.3-8.2) g/dL Albumin 2.4 L (3.5-5.0) g/dL Prealbumin (17.6-36.0) mg/dL Urine Color (YELLOW) Urine Appearance (CLEAR) Urine pH (5-6) Ur Specific [place] (1.005-1.025) Urine Protein (Negative) Urine Ketones (NEGATIVE) Urine Blood (0-5) Soham/ul Urine Nitrite (NEGATIVE) Urine Bilirubin (NEGATIVE) Urine Urobilinogen (0-1) mg/dL Ur Leukocyte Esterase (NEGATIVE) Urine WBC (Auto) (0-5) /HPF Urine RBC (Auto) (0-2) /HPF U Hyaline Cast (Auto) (0-2) /LPF U Epithel Cells (Auto) (FEW) /HPF Urine Bacteria (Auto) (NEGATIVE) /HPF U Non-Squamous Epi Cells (FEW) /HPF Unidentified Crystals (NEGATIVE) /HPF Other Casts (Auto) (NEGATIVE) /LPF Urine Mucus (Auto) (NEGATIVE) /HPF Urine Culture Reflexed (NO) Urine Glucose (NEGATIVE) mg/dL Radiology Exams: Radiology Procedures Category Date Time Status CHEST 1 VIEW (PORTABLE) Routine Exams 03/09/18 12:15 Completed HEAD WITHOUT CONTRAST [CT] Stat Exams 03/09/18 17:07 Completed Assessment/Plan (1) Acute metabolic encephalopathy Current Visit: Yes Status: Acute Assessment & Plan: Prognosis is guarded at this time. Will continue to try to rehydrate and treat UTI causing sepsis. Code(s): G93.41 - METABOLIC ENCEPHALOPATHY (2) Dehydration Current Visit: Yes Status: Acute Onset Date: ~03/09/18 Assessment & Plan: Continue with IV fluids, She has had good urine output with 1700 mL out recorded over the past 24 hours. Poor oral intake. Code(s): E86.0 - DEHYDRATION (3) Sepsis due to gram-negative UTI Current Visit: Yes Status: Acute Assessment & Plan: Continue ceftriaxone and await ID and sensitivity. Code(s): A41.50 - GRAM-NEGATIVE SEPSIS, UNSPECIFIED; N39.0 - URINARY TRACT INFECTION, SITE NOT SPECIFIED (4) Myasthenia gravis Current Visit: Yes Status: Chronic Assessment & Plan: Continue prednisone; if problems with blood pressure then will need to add stress dose of IV steroids. Code(s): G70.00 - MYASTHENIA GRAVIS WITHOUT (ACUTE) EXACERBATION (5) Uncontrolled type 2 diabetes mellitus Current Visit: Yes Status: Acute Qualifiers: Glycemic state: with hyperglycemia Qualified Code(s): E11.65 - Type 2 diabetes mellitus with hyperglycemia Code(s): E11.65 - TYPE 2 DIABETES MELLITUS WITH HYPERGLYCEMIA (6) Chronic anticoagulation Current Visit: Yes Status: Acute Assessment & Plan: Her daughter is going to check with sister who helps take care of her medical problems to see why she has been on Eliquis. She does report that she has a pacemaker. Code(s): Z79.01 - TRAFFIC AGENT (CURRENT) USE OF ANTICOAGULANTS
[2018-03-10] MEDS: DELTASONE 20 MG PO SCH (10:16)
[2018-03-10] MEDS: Protonix 40MG Tablet PO SCH (10:17)
[2018-03-10] MEDS: Singulair 10 MG PO SCH (10:17)
[2018-03-10] MEDS: FOLATE 1 MG PO SCH (10:17)
[2018-03-10] MEDS: ELIQUIS 2.5 MG TABLET PO SCH ×2 (10:17→21:21)
[2018-03-10] MEDS: ECOTRIN 81 MG PO SCH (10:18)
[2018-03-10] MEDS: Imdur 30 MG PO SCH (10:19)
[2018-03-10] MEDS: VITAMIN B-1 100 MG PO SCH (10:19)
[2018-03-10] MEDS: NovoLOG Insulin SQ SCH ×3 (10:20→21:22)
[2018-03-10] MEDS: TYLENOL 325 MG PO PRN ×2 (10:23→21:20)
[2018-03-10] MEDS: NovoLOG Insulin SQ PRN ×2 (11:30→16:51)
[2018-03-10] MEDS: ROCEPHIN 1 Gm-D5w 50 ml Bag** 1 G/50 ML IVPB IV SCH (14:36)
[2018-03-10] MEDS: ZOCOR 20MG PO SCH (21:21)
[2018-03-10] MEDS: Lantus Insulin SQ SCH (21:21)
[2018-03-10] MEDS ORDERED: Glutose 15 GM ORAL GEL PO PRN (22:27)
[2018-03-10] MEDS ORDERED: D50W 50 ml Abboject IV PRN (22:27)
[2018-03-11 05:35] LABS: Hematocrit 38.5 % (35-47); Hemoglobin 12.6 gm/dl (12.0-16.0); Mean Cell Volume 95.5 fl (78-100); Mean Corpuscular Hgb Concent. 32.7 g/dl (32-36); Mean Platelet Volume 11.6 fl (6-9.5); Platelet Count 162 K/mm3 (150-450); Red Blood Count 4.03 M/mm3 (4.1-5.4); Red Cell Distribution Width 16.9 % (11.5-14.0); White Blood Count 13.7 K/mm3 (4.0-10.5)
[2018-03-11 05:44] LABS: Mean Corpuscular Hemoglobin 31.2 pg (26-32)
[2018-03-11 05:50] LABS: BLOOD UREA NITROGEN 55 mg/dL (7-17); CHLORIDE 89 mmol/L (98-107); Creatinine 1 0.75 mg/dL (0.52-1.04); Glucose 103 mg/dL (74-106); Potassium 3.3 mmol/L (3.5-5.1); SODIUM 131 mmol/L (137-145)
[2018-03-11 05:57] LABS: Carbon Dioxide 39 mmol/L (22-30)
[2018-03-11 06:01] LABS: ANION GAP 6.3 MEQ/L (5-15)
[2018-03-11 07:20] LABS: Lymphocytes 8 % (24-44); Monocyte 4 % (0.0-12.0); Neutrophils 88 % (36.0-66.0); Platelet Estimate NORMAL (NORMAL); Total Cells Counted 100; Toxic Granulation 1+
[2018-03-11 07:21] LABS: ANISOCYTOSIS 1+; Poikilocytosis 1+
[2018-03-11] MEDS ORDERED: PHARMACY DOSING REQUEST MC ONE (07:24)
[2018-03-11] MEDS: Merrem 1 GM 1 G in Sodium Chloride 100ML MINI-BAG PLUS 100 ML IV SCH ×2 (08:08→21:58)
[2018-03-11] MEDS: Lactated Ringers 1,000 ML IV SCH ×3 (08:10→22:56)
[2018-03-11] MEDS ORDERED: POTASSIUM CHLORIDE 20 mEq IN WATER 100ML 20 MEQ/100 ML BAG IV ONE (10:13)
--- NOTE | 2018-03-11 10:19 | PCM.NOTE ---
Date and Time: 03/11/18 1013 Subjective Assessment: Her daughter is at the bedside again this AM and states she was more alert for her earlier this AM. She states she is on the anticoagulation for atrial fibrillation. Patient denies any headache or abdominal pain today. Her daughter says she took a few sips of ensure and a few bites of oatmeal. After I tried to turn her IV fluids down yesterday, her systolic blood pressure dropped to the 80's. She has been off all her blood pressure medication for hypertension since she has been here. - Review of Systems All Other Systems: Unable due to condition (Patient denies pain or constipation but otherwise ROS is difficult to obtain as patient does not answer all questions.) Objective Exam General Appearance: no apparent distress, lethargy, other (oriented to person, that she is in [place] and year is 2018) Neurologic Exam: cooperative, other (She will open her eyes to look at me but then immediately closes them. She will answer some questions today.) Skin Exam: normal color, warm, dry Respiratory Exam: normal breath sounds, lungs clear, No crackles/rales, No rhonchi, No wheezing Cardiovascular Exam: regular rate/rhythm, normal heart sounds, No murmur, No friction rub, No gallop Gastrointestinal/Abdomen Exam: soft, normal bowel sounds, No tenderness, No distention, No mass Extremity Exam: other (+3 edema to mid shins bilat with a little worse on left side; swelling of hands bilat, +2 dorsalis pedis pulses bilat) OBJECTIVE DATA Vital Signs: Vital Signs - 24 hr Temp Pulse Resp BP Pulse Ox 03/11/18 08:00 98.0 F 70 18 113/57 95 03/11/18 04:00 97.9 F 70 18 85/53 94 L 03/11/18 00:00 96.3 F 74 16 84/54 94 L 03/10/18 20:00 99.4 F 94 H 21 85/47 95 03/10/18 16:00 99.6 F 91 H 18 88/51 91 L 03/10/18 12:00 98.5 F 90 18 130/54 93 L Pain Assessment - Last Documented Pain Intensity 4 Pain Scale Used FLACC Intake and Output: Intake & Output 03/09/18 03/10/18 03/11/18 03/12/18 06:59 06:59 06:59 06:59 Intake Total 1429 360 Output Total 750 1700 800 Balance -572 -872 -333 Weight 73.6 kg Lab Results: Accuchecks Date 03/11/18 Date 03/10/18 Date 03/10/18 Date 03/10/18 Time 07:30 Time 22:00 Time 16:30 Time 11:30 Accucheck Value: 93 Accucheck Value: 198 Accucheck Value: 301 Accucheck Value: 215 Lab Results-Last 24 Hours 03/10/18 03/11/18 03/11/18 Range/Units 16:15 05:05 05:05 WBC 13.7 H (4.0-10.5) K/mm3 RBC 4.03 L (4.1-5.4) M/mm3 Hgb 12.6 (12.0-16.0) gm/dl Hct 38.5 (35-47) % MCV 95.5 (78-100) fl MCH 31.2 (26-32) pg MCHC 32.7 (32-36) g/dl RDW 16.9 H (11.5-14.0) % Plt Count 162 (150-450) K/mm3 MPV 11.6 H (6-9.5) fl Segmented Neutrophils 88 H (36.0-66.0) % Lymphocytes (Manual) 8 L (24-44) % Monocytes (Manual) 4 (0.0-12.0) % Toxic Granulation 1+ Platelet Estimate NORMAL (NORMAL) RBC Morphology ABNORMAL Poikilocytosis 1+ Anisocytosis 1+ Sodium 131 L (137-145) mmol/L Potassium 3.7 3.3 L (3.5-5.1) mmol/L Chloride 89 L (98-107) mmol/L Carbon Dioxide 39 H (22-30) mmol/L Anion Gap 6.3 (5-15) MEQ/L BUN 55 H (7-17) mg/dL Creatinine 0.75 (0.52-1.04) mg/dL Estimated GFR > 60.0 ML/MIN Glucose 103 (74-106) mg/dL Calcium 9.0 (8.4-10.2) mg/dL Radiology Exams: Radiology Procedures Category Date Time Status CHEST 1 VIEW (PORTABLE) Routine Exams 03/09/18 12:15 Completed HEAD WITHOUT CONTRAST [CT] Stat Exams 03/09/18 17:07 Completed Assessment/Plan (1) Acute metabolic encephalopathy Current Visit: Yes Status: Acute Assessment & Plan: Continues with perhaps a little clinical improvement. Condition continues to be guarded. Code(s): G93.41 - METABOLIC ENCEPHALOPATHY (2) Dehydration Current Visit: Yes Status: Acute Onset Date: ~03/09/18 Assessment & Plan: Resolving with IV fluids. Code(s): E86.0 - DEHYDRATION (3) Sepsis due to gram-negative UTI Current Visit: Yes Status: Acute Assessment & Plan: Urine culture grew Klebsiella. Antibiotic changed from ceftriaxone to meropenem. Code(s): A41.50 - GRAM-NEGATIVE SEPSIS, UNSPECIFIED; N39.0 - URINARY TRACT INFECTION, SITE NOT SPECIFIED (4) Myasthenia gravis Current Visit: Yes Status: Chronic Assessment & Plan: Continue current dose of prednisone. Code(s): G70.00 - MYASTHENIA GRAVIS WITHOUT (ACUTE) EXACERBATION (5) Uncontrolled type 2 diabetes mellitus Current Visit: Yes Status: Acute Qualifiers: Glycemic state: with hyperglycemia Qualified Code(s): E11.65 - Type 2 diabetes mellitus with hyperglycemia Assessment & Plan: Better this AM. I started lantus but stopped her scheduled short acting insulin as she is not eating much. She also has a sliding scale. Code(s): E11.65 - TYPE 2 DIABETES MELLITUS WITH HYPERGLYCEMIA (6) Chronic anticoagulation Current Visit: Yes Status: Acute Assessment & Plan: Continue eliquis for atrial fibrillation. Code(s): Z79.01 - CUSTODIAL (CURRENT) USE OF ANTICOAGULANTS (7) History of atrial fibrillation Current Visit: Yes Status: Acute Code(s): Z86.79 - PERSONAL HISTORY OF OTHER DISEASES OF THE CIRCULATORY SYSTEM
[2018-03-11] MEDS: Singulair 10 MG PO SCH (11:00)
[2018-03-11] MEDS: DELTASONE 20 MG PO SCH (11:00)
[2018-03-11] MEDS: Imdur 30 MG PO SCH (11:00)
[2018-03-11] MEDS: FOLATE 1 MG PO SCH (11:00)
[2018-03-11] MEDS: VITAMIN B-1 100 MG PO SCH (11:00)
[2018-03-11] MEDS: ECOTRIN 81 MG PO SCH (11:00)
[2018-03-11] MEDS: Protonix 40MG Tablet PO SCH (11:00)
[2018-03-11] MEDS: ELIQUIS 2.5 MG TABLET PO SCH ×2 (11:00→21:51)
[2018-03-11] MEDS: ROCEPHIN 1 Gm-D5w 50 ml Bag** 1 G/50 ML IVPB IV SCH (16:14)
[2018-03-11] MEDS: NovoLOG Insulin SQ PRN ×2 (17:23→21:55)
[2018-03-11] MEDS: ZOCOR 20MG PO SCH (21:51)
[2018-03-11] MEDS: Lantus Insulin SQ SCH (21:55)
[2018-03-12 05:29] LABS: Granulocyte Absolute (ANC) 11.77 (1.4-6.9); Hematocrit 41.2 % (35-47); Hemoglobin 13.4 gm/dl (12.0-16.0); Mean Cell Volume 95.4 fl (78-100); Mean Corpuscular Hgb Concent. 32.5 g/dl (32-36); Mean Platelet Volume 11.4 fl (6-9.5); Platelet Count 208 K/mm3 (150-450); Red Blood Count 4.32 M/mm3 (4.1-5.4); Red Cell Distribution Width 16.9 % (11.5-14.0)
[2018-03-12 05:47] LABS: ANION GAP 7.1 MEQ/L (5-15); BLOOD UREA NITROGEN 38 mg/dL (7-17); CHLORIDE 92 mmol/L (98-107); Calcium 8.8 mg/dL (8.4-10.2); Carbon Dioxide 35 mmol/L (22-30); Creatinine 1 0.51 mg/dL (0.52-1.04); Glucose 66 mg/dL (74-106); Potassium 3.5 mmol/L (3.5-5.1); SODIUM 130 mmol/L (137-145)
[2018-03-12 06:30] LABS: ATYPICAL LYMPHS 3 %; Lymphocytes 24 % (24-44); Monocyte 5 % (0.0-12.0); Neutrophils 68 % (36.0-66.0); Total Cells Counted 100
[2018-03-12 06:31] LABS: Platelet Estimate NORMAL (NORMAL)
[2018-03-12] MEDS: Lactated Ringers 1,000 ML IV SCH (07:32)
--- NOTE | 2018-03-12 08:24 | PCM.NOTE ---
Date and Time: 03/12/18823 Subjective Assessment: periods of lucency yesterday but still mostly sleeping when she does awaken she answers questions appropriately she only eats and drinks small amounts. Objective Exam General Appearance: no apparent distress, obese Neurologic Exam: other (she opens eyes and tracks briefly to voice but does not follow commands currently was up eating breakfast this am with the aid she does not have any obvious focal deficits.) Skin Exam: normal color, warm, dry, other (decubitous ulcers) Eye Exam: PERRL, EOMI, eyes nml inspection Ears, Nose, Throat Exam: normal ENT inspection, pharynx normal, moist mucous membranes Neck Exam: normal inspection, non-tender, supple, full range of motion Respiratory Exam: normal breath sounds, lungs clear, No respiratory distress Cardiovascular Exam: regular rate/rhythm, normal heart sounds Gastrointestinal/Abdomen Exam: soft, other (mahan with dark yellow urine), No tenderness, No mass Extremity Exam: pedal edema Pelvic Exam: deferred Rectal Exam: deferred OBJECTIVE DATA Vital Signs: Vital Signs - 24 hr Temp Pulse Resp BP Pulse Ox 03/12/18 07:28 97.4 F 84 18 108/56 98 03/12/18 04:00 97.9 F 81 16 98/53 94 L 03/12/18 00:00 98.1 F 89 15 123/65 95 03/11/18 20:00 98.9 F 90 15 103/59 94 L 03/11/18 16:00 98.4 F 86 20 105/72 92 L 03/11/18 12:00 97.7 F 85 18 105/65 93 L Pain Assessment - Last Documented Pain Intensity [address] [facility] Intake and Output: Intake & Output 03/09/18 03/10/18 03/11/18 03/12/18 11:59 11:59 11:59 11:59 Intake Total 0097 869 0201 Output Total 750 3495 873 5088 Balance -776 -953 -248 1299 Weight 73.6 kg Lab Results: Accuchecks Date 03/11/18 Date 03/11/18 Date 03/11/18 Time 16:30 Time 11:30 Accucheck Value: 203 Accucheck Value: 209 Accucheck Value: 145 Lab Results-Last 24 Hours 03/11/18 03/12/18 03/12/18 Range/Units 19:06 05:00 05:00 WBC 16.0 H (4.0-10.5) K/mm3 RBC 4.32 (4.1-5.4) M/mm3 Hgb 13.4 (12.0-16.0) gm/dl Hct 41.2 (35-47) % MCV 95.4 (78-100) fl MCH 31.0 (26-32) pg MCHC 32.5 (32-36) g/dl RDW 16.9 H (11.5-14.0) % Plt Count 208 (150-450) K/mm3 MPV 11.4 H (6-9.5) fl Absolute Granulocytes 11.77 H (1.4-6.9) Segmented Neutrophils 68 H (36.0-66.0) % Lymphocytes (Manual) 24 (24-44) % Monocytes (Manual) 5 (0.0-12.0) % Atypical Lymphocytes 3 % Platelet Estimate NORMAL (NORMAL) RBC Morphology NORMAL Sodium 130 L (137-145) mmol/L Potassium 4.0 3.5 (3.5-5.1) mmol/L Chloride 92 L (98-107) mmol/L Carbon Dioxide 35 H (22-30) mmol/L Anion Gap 7.1 (5-15) MEQ/L BUN 38 H (7-17) mg/dL Creatinine 0.51 L (0.52-1.04) mg/dL Estimated GFR > 60.0 ML/MIN Glucose 66 L (74-106) mg/dL Calcium 8.8 (8.4-10.2) mg/dL Assessment/Plan (1) Acute kidney injury Current Visit: Yes Status: Acute Assessment & Plan: improving uremia improving slow response to the mental status still waxing and waning symptoms Code(s): N17.9 - ACUTE KIDNEY FAILURE, UNSPECIFIED (2) Acute metabolic encephalopathy Current Visit: Yes Status: Acute Code(s): G93.41 - METABOLIC ENCEPHALOPATHY (3) Dehydration Current Visit: Yes Status: Acute Onset Date: ~03/09/18 Assessment & Plan: improving now with some third spacing edema decrease iv fluids Code(s): E86.0 - DEHYDRATION (4) UTI (urinary tract infection) Current Visit: Yes Status: Resolved Onset Date: ~02/13/18 Qualifiers: Indwelling urinary catheter type: indwelling urethral catheter Encounter type: initial encounter Assessment & Plan: with pseudomonas now on meropenem continue Code(s): N39.0 - URINARY TRACT INFECTION, SITE NOT SPECIFIED (5) Uncontrolled type 2 diabetes mellitus Current Visit: Yes Status: Acute Qualifiers: Glycemic state: with hyperglycemia Qualified Code(s): E11.65 - Type 2 diabetes mellitus with hyperglycemia Assessment & Plan: hyperglycemia improved now with hypoglycemia this am decrease lantus to 15 units daily from 30 Code(s): E11.65 - TYPE 2 DIABETES MELLITUS WITH HYPERGLYCEMIA (6) Myasthenia gravis Current Visit: Yes Status: Chronic Assessment & Plan: chronic high dose steroid therapy trial a stress dose of hydrocortisone for response Code(s): G70.00 - MYASTHENIA GRAVIS WITHOUT (ACUTE) EXACERBATION (7) Lactic acid acidosis Current Visit: Yes Status: Resolved Onset Date: ~03/09/18 Code(s): E87.2 - ACIDOSIS
[2018-03-12] MEDS ORDERED: solu-CORTEF 100MG IV ONE (09:00)
[2018-03-12] MEDS: ELIQUIS 2.5 MG TABLET PO SCH ×2 (10:23→22:33)
[2018-03-12] MEDS: Imdur 30 MG PO SCH (10:23)
[2018-03-12] MEDS: Singulair 10 MG PO SCH (10:23)
[2018-03-12] MEDS: FOLATE 1 MG PO SCH (10:23)
[2018-03-12] MEDS: VITAMIN B-1 100 MG PO SCH (10:24)
[2018-03-12] MEDS: Merrem 1 GM 1 G in Sodium Chloride 100ML MINI-BAG PLUS 100 ML IV SCH ×2 (10:24→22:58)
[2018-03-12] MEDS: ECOTRIN 81 MG PO SCH (10:24)
[2018-03-12] MEDS: Protonix 40MG Tablet PO SCH (10:24)
[2018-03-12] MEDS: DELTASONE 20 MG PO SCH (10:24)
[2018-03-12] MEDS: TYLENOL 325 MG PO PRN ×2 (15:10→22:32)
[2018-03-12] MEDS ORDERED: Lantus Insulin SQ SCH (22:00)
[2018-03-12] MEDS: ZOCOR 20MG PO SCH (22:34)
[2018-03-12] MEDS: NovoLOG Insulin SQ PRN (23:05)
[2018-03-13] MEDS: Lactated Ringers 1,000 ML IV SCH ×2 (00:05→18:02)
[2018-03-13 05:29] LABS: Hemoglobin 13.6 gm/dl (12.0-16.0); Mean Cell Volume 96.6 fl (78-100); Mean Corpuscular Hemoglobin 31.3 pg (26-32); Mean Corpuscular Hgb Concent. 32.4 g/dl (32-36); Mean Platelet Volume 11.7 fl (6-9.5); Platelet Count 195 K/mm3 (150-450); Red Blood Count 4.35 M/mm3 (4.1-5.4); Red Cell Distribution Width 17.2 % (11.5-14.0); White Blood Count 12.7 K/mm3 (4.0-10.5)
[2018-03-13 05:38] LABS: ANION GAP 8.2 MEQ/L (5-15); BLOOD UREA NITROGEN 31 mg/dL (7-17); CHLORIDE 91 mmol/L (98-107); Calcium 8.8 mg/dL (8.4-10.2); Carbon Dioxide 35 mmol/L (22-30); Glucose 79 mg/dL (74-106); Potassium 3.6 mmol/L (3.5-5.1); SODIUM 131 mmol/L (137-145)
[2018-03-13 07:03] LABS: ANISOCYTOSIS 1+; Lymphocytes 28 % (24-44); Monocyte 3 % (0.0-12.0); Neutrophils 69 % (36.0-66.0); Platelet Estimate NORMAL (NORMAL); Poikilocytosis 1+; Polychromasia 1+; Total Cells Counted 100
--- NOTE | 2018-03-13 08:18 | PCM.NOTE ---
Date and Time: 03/13/18 08 Subjective Assessment: she had more periods of alertness yesterday still sleeping most of the day. She has not been eating or drinking much just some glucerna mostly. She does awaken today to voice and asks why I won't let her . When further questioned on this she seems unsure she denies any pain she just is tired and feels like she is not progressing. After further discussion she does want us to continue the current treatment with plan to work on transition to rehab when appropriate. Objective Exam General Appearance: obese Neurologic Exam: alert, cooperative, No slurred speech, No abnormal teradata developer II-XII Skin Exam: warm, dry Eye Exam: No EOMI, No scleral icterus, No pale conjunctivae Ears, Nose, Throat Exam: moist mucous membranes Neck Exam: non-tender, supple Respiratory Exam: normal breath sounds Cardiovascular Exam: regular rate/rhythm, normal heart sounds Gastrointestinal/Abdomen Exam: soft, normal bowel sounds, other (mahan in place with dark yellow urine), No tenderness Extremity Exam: pedal edema (2+ with thin skin) OBJECTIVE DATA Vital Signs: Vital Signs - 24 hr Temp Pulse Resp BP Pulse Ox 03/13/18 07:26 97.4 F 79 16 100/54 95 03/13/18 04:00 97.4 F 81 18 102/56 96 03/13/18 00:00 97.4 F 76 16 98/59 96 03/12/18 20:00 97.6 F 88 15 97/51 95 03/12/18 16:00 99.0 F 83 18 106/59 95 03/12/18 12:00 98.4 F 90 18 92/62 96 Pain Assessment - Last Documented Pain Intensity 5 Pain Scale Used FLACC Intake and Output: Intake & Output 03/10/18 03/11/18 03/12/18 03/13/18 11:59 11:59 11:59 11:59 Intake Total 0857 966 9483 4675 Output Total 3803 936 3118 775 Balance -271 440 1299 3900 Weight 73.6 kg 73.6 kg Lab Results: Accuchecks Date 03/12/18 Time 22:00 Accucheck Value: 79 Accucheck Value: 199 Accucheck Value: 165 Accucheck Value: 89 Lab Results-Last 24 Hours 03/13/18 03/13/18 Range/Units 04:35 04:35 WBC 12.7 H (4.0-10.5) K/mm3 RBC 4.35 (4.1-5.4) M/mm3 Hgb 13.6 (12.0-16.0) gm/dl Hct 42.0 (35-47) % MCV 96.6 (78-100) fl MCH 31.3 (26-32) pg MCHC 32.4 (32-36) g/dl RDW 17.2 H (11.5-14.0) % Plt Count 195 (150-450) K/mm3 MPV 11.7 H (6-9.5) fl Absolute Granulocytes 9.70 H (1.4-6.9) Segmented Neutrophils 69 H (36.0-66.0) % Lymphocytes (Manual) 28 (24-44) % Monocytes (Manual) 3 (0.0-12.0) % Platelet Estimate NORMAL (NORMAL) RBC Morphology ABNORMAL Polychromasia 1+ Poikilocytosis 1+ Anisocytosis 1+ Sodium 131 L (137-145) mmol/L Potassium 3.6 (3.5-5.1) mmol/L Chloride 91 L (98-107) mmol/L Carbon Dioxide 35 H (22-30) mmol/L Anion Gap 8.2 (5-15) MEQ/L BUN 31 H (7-17) mg/dL Creatinine 0.50 L (0.52-1.04) mg/dL Estimated GFR > 60.0 ML/MIN Glucose 79 (74-106) mg/dL Calcium 8.8 (8.4-10.2) mg/dL Multi-Disciplinary Progress Notes: Multi-Disciplinary Progress Notes 03/12/18 10:00 (created 03/12/18 13:46) Case Management Note by Lisa Mckeon FAMILY CONTINUE TO PLAN FOR PT TO RETURN TO [facility] ON DISCHARGE. NO ADDNL NEEDS IDENTIFIED AT THIS TIME. WILL CONTINUE TO FOLLOW. Initialized on 03/12/18 13:46 - END OF NOTE Assessment/Plan (1) Acute kidney injury Status: Acute Assessment & Plan: improving nearly back to baseline still with the uremia but third spacing is worsening with her lack of intake will continue iv fluids for 24 more hours and monitor for response give additional dose of hydrocortisone today for stress dosing with her previous use of the high dose prednisone sugars lower again will decrease lantus to 10 units hs continue on the meropenem for the pseudomonas UTI Code(s): N17.9 - ACUTE KIDNEY FAILURE, UNSPECIFIED (2) Acute metabolic encephalopathy Status: Acute Code(s): G93.41 - METABOLIC ENCEPHALOPATHY (3) Dehydration Status: Acute Onset Date: ~03/09/18 Code(s): E86.0 - DEHYDRATION (4) UTI (urinary tract infection) Status: Resolved Onset Date: ~02/13/18 Qualifiers: Indwelling urinary catheter type: indwelling urethral catheter Encounter type: initial encounter Code(s): N39.0 - URINARY TRACT INFECTION, SITE NOT SPECIFIED (5) Uncontrolled type 2 diabetes mellitus Status: Acute Qualifiers: Glycemic state: with hyperglycemia Qualified Code(s): E11.65 - Type 2 diabetes mellitus with hyperglycemia Code(s): E11.65 - TYPE 2 DIABETES MELLITUS WITH HYPERGLYCEMIA (6) Myasthenia gravis Status: Chronic Code(s): G70.00 - MYASTHENIA GRAVIS WITHOUT (ACUTE) EXACERBATION (7) Lactic acid acidosis Status: Resolved Onset Date: ~03/09/18 Code(s): E87.2 - ACIDOSIS
[2018-03-13] MEDS ORDERED: solu-CORTEF 100MG IV ONE (08:30)
[2018-03-13] MEDS: VITAMIN B-1 100 MG PO SCH (10:36)
[2018-03-13] MEDS: Singulair 10 MG PO SCH (10:37)
[2018-03-13] MEDS: FOLATE 1 MG PO SCH (10:37)
[2018-03-13] MEDS: Imdur 30 MG PO SCH (10:37)
[2018-03-13] MEDS: DELTASONE 20 MG PO SCH (10:37)
[2018-03-13] MEDS: Protonix 40MG Tablet PO SCH (10:37)
[2018-03-13] MEDS: ECOTRIN 81 MG PO SCH (10:37)
[2018-03-13] MEDS: ELIQUIS 2.5 MG TABLET PO SCH ×2 (10:37→21:09)
[2018-03-13] MEDS: Merrem 1 GM 1 G in Sodium Chloride 100ML MINI-BAG PLUS 100 ML IV SCH ×2 (10:39→21:09)
[2018-03-13] MEDS: NovoLOG Insulin SQ PRN (21:09)
[2018-03-13] MEDS: ZOCOR 20MG PO SCH (21:09)
[2018-03-13] MEDS ORDERED: Lantus Insulin SQ SCH (22:00)
[2018-03-14 05:37] LABS: Hematocrit 41.4 % (35-47); Hemoglobin 13.4 gm/dl (12.0-16.0); Mean Cell Volume 97.2 fl (78-100); Mean Corpuscular Hemoglobin 31.5 pg (26-32); Mean Corpuscular Hgb Concent. 32.4 g/dl (32-36); Mean Platelet Volume 11.1 fl (6-9.5); Platelet Count 194 K/mm3 (150-450); Red Blood Count 4.26 M/mm3 (4.1-5.4); Red Cell Distribution Width 17.2 % (11.5-14.0); White Blood Count 12.7 K/mm3 (4.0-10.5)
[2018-03-14 05:59] LABS: ANION GAP 8.7 MEQ/L (5-15); BLOOD UREA NITROGEN 26 mg/dL (7-17); CHLORIDE 91 mmol/L (98-107); Calcium 8.6 mg/dL (8.4-10.2); Carbon Dioxide 34 mmol/L (22-30); Creatinine 1 0.46 mg/dL (0.52-1.04); Glucose 117 mg/dL (74-106); Potassium 3.4 mmol/L (3.5-5.1); SODIUM 131 mmol/L (137-145)
[2018-03-14 07:28] VITALS: BP 102/55; PULSE 73; O2SAT 93
--- NOTE | 2018-03-14 08:29 | PCM.DS ---
Discharge Summary Date of Admission: 03/09/18 11:48 Date of Discharge: 03/14/2018 Admitting Physician: NICOLE CONLEY Primary Care Provider: NICOLE CONLEY Allergies Allergies Shellfish *RETIRED-09/12/12 [Shellfish] Allergy (Intermediate, Verified 11:08) Hives meperidine HCl [From Demerol] Allergy (Verified 10/15/17 11:08) metronidazole [From Flagyl] Allergy (Verified 10/15/17 11:08) Penicillins Allergy (Verified 10/15/17 11:08) hydralazine Adverse Reaction (Verified 10/15/17 11:08) CRAB Allergy (Uncoded 10/15/17 11:08) Hospital Summary - Hospital Course Hospital Course: Ms. Bergman was having worsening control of her sugar into the 's despite increasing insulin doses as well as impaired cognition with lack of appetite and was continued to decline from the time of her transfer from [place] to [facility]. Her blood work showed severe dehydration with uremia and also a leukocytosis with bandemia. She was sent for admission and found to have UTI and initially treated with Rocephin based on her last culture the previous hospital stay but the current culture showed pseudomonas with intermediate resistance to fluorquinolones and thus she was changed to meropenem. She was continued with iv hydration and taken off her blood pressure and diuretics. She showed slow improvement with the hydration and remained with decreased appetite and low cognition. She would tire out after talking and sleep for long periods. She did start to show more improvement on 03/13 in her cognition and awoke very alert 03/14 and was very hungry and eating well much more alert. She was able to converse well and appropriately and even joke sum. She wanted to get out of the hospital. We did discuss this with her son and POA on 03/14 and we agree we will continue her iv antibiotics to complete treatment of the pseudomonas uti and she will need continued wound care on her decubitus ulcer. her insulin has been adjusted and stopped many of her home medications including her blood pressure medications, cholestyramine and her tradjenta. She will need close observation of her diet and she is only on 10 units of lantus now. Will monitor sugar closely. she has expressed desire to stop treatment for her myasthenia gravis and understands the consequences and that continued treatment with the prednisone is recommended by her neurologist. She stated to her daughters she would rather succumb to the disease then continue on the prednisone. - Vitals & Intake/Output Vital Signs: Vital Signs Temperature 98.0 F 03/14/18 07:27 Pulse Rate 73 03/14/18 07:27 Respiratory Rate 18 03/14/18 07:27 Blood Pressure 102/55 03/14/18 07:27 O2 Sat by Pulse Oximetry 93 L 03/14/18 07:27 Oxygen-Last Documented O2 Percentage 2 Liters = 28% Intake & Output: Intake & Output 03/11/18 03/12/18 03/13/18 03/14/18 11:59 11:59 11:59 11:59 Intake Total 360 2474 4875 1437 Output Total 800 1175 775 800 Balance -440 1299 4100 637 Weight 73.6 kg - Lab Result Diagrams: 03/14/18 05:15 03/14/18 05:15 Lab Results-Last 24 Hrs: Accuchecks Date 03/13/18 Time 22:00 Accucheck Value: 203 Accucheck Value: 162 Accucheck Value: 89 Lab Results-Last 24 Hours 03/14/18 03/14/18 Range/Units 05:15 05:15 WBC 12.7 H (4.0-10.5) K/mm3 RBC 4.26 (4.1-5.4) M/mm3 Hgb 13.4 (12.0-16.0) gm/dl Hct 41.4 (35-47) % MCV 97.2 (78-100) fl MCH 31.5 (26-32) pg MCHC 32.4 (32-36) g/dl RDW 17.2 H (11.5-14.0) % Plt Count 194 (150-450) K/mm3 MPV 11.1 H (6-9.5) fl Sodium 131 L (137-145) mmol/L Potassium 3.4 L (3.5-5.1) mmol/L Chloride 91 L (98-107) mmol/L Carbon Dioxide 34 H (22-30) mmol/L Anion Gap 8.7 (5-15) MEQ/L BUN 26 H (7-17) mg/dL Creatinine 0.46 L (0.52-1.04) mg/dL Estimated GFR > 60.0 ML/MIN Glucose 117 H (74-106) mg/dL Calcium 8.6 (8.4-10.2) mg/dL Micro Results-Entire Visit: Microbiology 03/09/18 12:35 Blood Culture Gram Stain - Final Blood Not Reportable Blood Culture - Final NO GROWTH 03/09/18 12:20 Blood Culture Gram Stain - Final Blood Not Reportable Blood Culture - Final NO GROWTH 03/09/18 12:46 Urine Culture - Final Urine, Indwelling Catheter Pseudomonas Aeruginosa Accuchecks Date 03/13/18 Time 22:00 Accucheck Value: 203 Accucheck Value: 162 Accucheck Value: 89 - Procedures and Test Procedures and Tests throughout Hospitalization: Therapy Orders & Screens 03/09/18 13:29 OT Screen per Nursing Assess ONCE Comment: Protocol Order Physician Instructions: Greater than 3 points order OT Admission Screening Reason For Exam: Triggered on Admission Diagnosis: hyponatremia, hyperglycemia, altered mental status Open Wound/Cellutlitis/Pressure Ulcers: Yes Acute Fx/ORIF/Change in wt bearing status: Yes Severe MUSCULOSKELETAL pain: No ADL Dysfunction: Yes Acute CVA w/Hemiparesis/Hemiplegia: No Decreased Functional Mobility/Strength: Yes Sprain/Strain: No Acute Post-op Mobility Dysfunction: No Total Points: 14 PT Screen per Nursing Assess ONCE Comment: Protocol Order Physician Instructions: Greater than 3 points order PT Admission Screenin Reason For Exam: Triggered on Admission Diagnosis: hyponatremia, hyperglycemia, altered mental status Open Wound/Cellutlitis/Pressure Ulcers: Yes Acute Fx/ORIF/Change in wt bearing status: Yes Severe MUSCULOSKELETAL pain: No ADL Dysfunction: Yes Acute CVA w/Hemiparesis/Hemiplegia: No Decreased Functional Mobility/Strength: Yes Sprain/Strain: No Acute Post-op Mobility Dysfunction: No Total Points: 14 ST Screen per Nursing Assess once Comment: Protocol Order Physician Instructions: Greater than [address] Admission Screening Reason For Exam: Triggered on Admission Diagnosis: hyponatremia, hyperglycemia, altered mental status CVA/Dyshpagia/Aphasia: No Cognitive Deficits: Yes Dehydration/Nutrition Deficit: Yes Reflux: Yes Oral-Motor Difficulties: No Pneumonia: No Intermediate Resident: Yes Total Points: 16 Discharge Exam General Appearance: no apparent distress, obese Neurologic Exam: alert, oriented x 3, cooperative Skin Exam: warm, dry, other (decubitus ulcerations) Eye Exam: No scleral icterus, No pale conjunctivae Ears, Nose, Throat Exam: moist mucous membranes Neck Exam: non-tender, supple Respiratory Exam: normal breath sounds, lungs clear Cardiovascular Exam: regular rate/rhythm, normal heart sounds Gastrointestinal/Abdomen Exam: soft, normal bowel sounds, other (R[place] in place with yellow urine), No tenderness, No distention, No guarding Extremity Exam: normal inspection, pedal edema (diffuse pitting edema all 4 extremities 1 to 2+ with thin frail skin), No calf tenderness Final Diagnosis/Problem List - Final Discharge Diagnosis/Problem (1) Acute kidney injury Status: Acute (2) Acute metabolic encephalopathy Status: Acute (3) Dehydration Status: Acute Onset Date: ~03/09/18 (4) UTI (urinary tract infection) Status: Resolved Onset Date: ~02/13/18 (5) Uncontrolled type 2 diabetes mellitus Status: Acute (6) Myasthenia gravis Status: Chronic (7) Lactic acid acidosis Status: Resolved Onset Date: ~03/09/18 - Discharge Discharge Date: 03/14/18 Disposition: DC TO [facility] Condition: Fair Prescriptions: New Insulin Glargine [Lantus Insulin] 10 unit SQ HS unit Meropenem [Merrem 1 GM] 1 g IV Q12HT 6 Days vial Continue Montelukast Sodium 10 mg PO DAILY Apixaban [Eliquis 5 mg Tablet] 5 mg PO BID Alprazolam 0.25 mg [xanAX 0.25 MG] 0.25 mg PO Q8H PRN PRN Reason: Anxiety Simvastatin 40 mg [Zocor 40 mg] 20 mg PO DAILY Aspirin 81 mg PO DAILY Thiamine HCl 1 tab PO DAILY Folic Acid 1 tab PO DAILY Calcium Citrate/Vitamin D3 [Citracal + D Caplet] 1 tab PO DAILY Prednisone 20 mg [Deltasone 20 mg] 30 mg PO DAILY Cholecalciferol (Vitamin D3) [Vitamin D3] 1,000 unit PO DAILY Pyridostigmine [place] 30 mg PO TID PRN #60 tablet PRN Reason: difficulty swallowing Glucagon 1 mg [GlucaGen 1 MG] 1 mg IM STAT PANTOPRAZOLE 40 mg Tablet [Protonix 40MG Tablet] 40 mg PO QAM Ubidecarenone [Coenzyme Q10] 4 cap PO BID Acetaminophen 325 mg [Tylenol 325 mg] 2 tab PO Q4H PRN PRN Reason: Pain Discontinued Potassium Chloride 20 Meq [Klor-Con 20 MEQ] 20 meq PO BID Magnesium Oxide 400 mg [Mag-Ox 400] 800 mg PO BID Lisinopril/Hydrochlorothiazide [Lisinopril-Hctz 20-25 mg Tab] 1 each PO DAILY Isosorbide Mononitrate 30 mg [Imdur 30 MG] 30 mg PO DAILY Bumetanide 1 mg [Bumex 1 mg] 1 mg PO BID DIURETIC #60 tablet Cholestyramine (with Sugar) [Cholestyramine Powder] 4 gm PO BID #1 canister Linagliptin [Tradjenta] 1 tab PO DAILY Insulin Aspart [NovoLOG Insulin] 5 unit SQ TID Insulin Glargine,Hum.rec.anlog [Lantus] 30 unit SQ HS Additional Instructions: SABI COLLINS ORDERS: Carb consistent diet. Accucheck four times a day CMP, magnesium, CBC with diff on Monday03/19/2018 SEE ATTACHED MED LIST FOR CURRENT MEDS Follow up with: NICOLE CONLEY [Primary Care Provider] - 1 Week
--- NOTE | 2018-03-14 08:40 | PCM.DCORD ---
- Discharge Discharge Date: 03/14/18 Disposition: DC TO [facility] Condition: Fair Prescriptions: New Insulin Glargine [Lantus Insulin] 10 unit SQ HS unit Meropenem [Merrem 1 GM] 1 g IV Q12HT 6 Days vial Continue Montelukast Sodium 10 mg PO DAILY Apixaban [Eliquis 5 mg Tablet] 5 mg PO BID Alprazolam 0.25 mg [xanAX 0.25 MG] 0.25 mg PO Q8H PRN PRN Reason: Anxiety Simvastatin 40 mg [Zocor 40 mg] 20 mg PO DAILY Aspirin 81 mg PO DAILY Thiamine HCl 1 tab PO DAILY Folic Acid 1 tab PO DAILY Calcium Citrate/Vitamin D3 [Citracal + D Caplet] 1 tab PO DAILY Prednisone 20 mg [Deltasone 20 mg] 30 mg PO DAILY Cholecalciferol (Vitamin D3) [Vitamin D3] 1,000 unit PO DAILY Pyridostigmine [place] 30 mg PO TID PRN #60 tablet PRN Reason: difficulty swallowing Glucagon 1 mg [GlucaGen 1 MG] 1 mg IM STAT PANTOPRAZOLE 40 mg Tablet [Protonix 40MG Tablet] 40 mg PO QAM Ubidecarenone [Coenzyme Q10] 4 cap PO BID Acetaminophen 325 mg [Tylenol 325 mg] 2 tab PO Q4H PRN PRN Reason: Pain Discontinued Potassium Chloride 20 Meq [Klor-Con 20 MEQ] 20 meq PO BID Magnesium Oxide 400 mg [Mag-Ox 400] 800 mg PO BID Lisinopril/Hydrochlorothiazide [Lisinopril-Hctz 20-25 mg Tab] 1 each PO DAILY Isosorbide Mononitrate 30 mg [Imdur 30 MG] 30 mg PO DAILY Bumetanide 1 mg [Bumex 1 mg] 1 mg PO BID DIURETIC #60 tablet Cholestyramine (with Sugar) [Cholestyramine Powder] 4 gm PO BID #1 canister Linagliptin [Tradjenta] 1 tab PO DAILY Insulin Aspart [NovoLOG Insulin] 5 unit SQ TID Insulin Glargine,Hum.rec.anlog [Lantus] 30 unit SQ HS Additional Instructions: Carb consistent diet. Accucheck four times a day CMP, magnesium, CBC with diff on Monday03/19/2018 Follow up with: NICOLE CONLEY [Primary Care Provider] - 1 Week
[2018-03-14] MEDS: DELTASONE 20 MG PO SCH (09:05)
[2018-03-14] MEDS: Merrem 1 GM 1 G in Sodium Chloride 100ML MINI-BAG PLUS 100 ML IV SCH (09:05)
[2018-03-14] MEDS: Imdur 30 MG PO SCH (09:05)
[2018-03-14] MEDS: ELIQUIS 2.5 MG TABLET PO SCH (09:05)
[2018-03-14] MEDS: ECOTRIN 81 MG PO SCH (09:06)
[2018-03-14] MEDS: FOLATE 1 MG PO SCH (09:06)
[2018-03-14] MEDS: Singulair 10 MG PO SCH (09:06)
[2018-03-14] MEDS: VITAMIN B-1 100 MG PO SCH (09:06)
[2018-03-14] MEDS: Protonix 40MG Tablet PO SCH (09:06)
== END 2018-03-14 10:55 | DRG 689 ==
LOC: MED SURG 11:47 → OBSVTOIN 11:48 → MED SURG 11:48
PROVIDERS: ADMIT Family Medicine; ATTEND Family Medicine
DX: N39.0 Urinary tract infection, site not specified (principal); B96.5 Pseudomonas (aeruginosa) (mallei) (pseudomallei) as the cause of diseases classified elsewhere; A41.50 Gram-negative sepsis, unspecified; E87.2 Acidosis; N17.9 Acute kidney failure, unspecified; G93.41 Metabolic encephalopathy; G70.00 Myasthenia gravis without (acute) exacerbation; R41.82 Altered mental status, unspecified; I48.91 Unspecified atrial fibrillation; E87.1 Hypo-osmolality and hyponatremia; E86.0 Dehydration; E11.65 Type 2 diabetes mellitus with hyperglycemia; Z79.4 Long term (current) use of insulin; Z79.01 Long term (current) use of anticoagulants; Z79.899 Other long term (current) drug therapy; S31.000A Unspecified open wound of lower back and pelvis without penetration into retroperitoneum, initial encounter
CPT/HCPCS: 36415; 70450; 71045; 80048; 80053; 81001; 82962; 83605; 83735; 84132; 84134; 85025; 85027; 87040; 87077; 87086; 87186; J0696; J1720; J3480; A9270-GY

== ENCOUNTER 2018-03-16 15:18 | Emergency (ER) | payer MEDICARE, BC ==
[2018-03-16] MEDS ORDERED: Sodium Chloride 0.9% 1000 ML 1,000 ML IV SCH (15:30)
--- NOTE | 2018-03-16 15:36 | ERPHSYRPT ---
- History of Present Illness Time Seen by Provider: 03/16/18 15:24 Historian: patient, EMS, long term records Exam Limitations: clinical condition Physician History: PATIENT WITH HISTORY OF MYSTHENIA GRAVIS, ATRIAL FIBRILLATION, TYPE 2 DIABETES, RECENT DIAGNOSIS DIVERTICULITIS, HAS HAD PICC LINE INSERTION ON 03/14/2018 FOR RECURRENT URINARY TRACT INFECTION COMPLAINS OF LOWER ABDOMINAL PAINS THIS MORNING ASSOCIATED WITH BLOOD IN HER STOOL. NO HISTORY OF FEVER OR CHILLS, OR VOMITING. NURSES FOUND BLOODY STOOL THIS MORNING. Timing/Duration: today Activities at Onset: none Quality: throbbing Abdominal Pain Onset Location: periumbilical Pain Radiation: no radiation Severity of Pain-Max: moderate Severity of Pain-Current: moderate Modifying Factors: Improves With: movement Associated Symptoms: diarrhea, weakness Previous symptoms: same symptoms as today Allergies/Adverse Reactions: meperidine HCl [From Demerol] Allergy (Verified 10/15/17 11:08) metronidazole [From Flagyl] Allergy (Verified 10/15/17 11:08) Penicillins Allergy (Verified 10/15/17 11:08) shellfish derived Allergy (Verified 03/16/18 15:42) hydralazine Adverse Reaction (Verified 10/15/17 11:08) CRAB Allergy (Uncoded 10/15/17 11:08) Home Medications: Montelukast Sodium 10 mg PO DAILY 12/19/14 [History] Apixaban [Eliquis 5 mg Tablet] 5 mg PO BID 06/24/16 [History] Alprazolam 0.25 mg [xanAX 0.25 MG] 0.25 mg PO Q8H PRN 08/22/17 [History] Simvastatin 40 mg [Zocor 40 mg] 20 mg PO DAILY 08/22/17 [History] Aspirin 81 mg PO DAILY 02/13/18 [History] Calcium Citrate/Vitamin D3 [Citracal + D [place]] 1 tab PO DAILY 02/13/18 [ History] Cholecalciferol (Vitamin D3) [Vitamin D3] 1,000 unit PO DAILY 02/13/18 [History] Folic Acid 1 tab PO DAILY 02/13/18 [History] Prednisone 20 mg [Deltasone 20 mg] 30 mg PO DAILY 02/13/18 [History] Thiamine HCl 1 tab PO DAILY 02/13/18 [History] Acetaminophen 325 mg [Tylenol 325 mg] 2 tab PO Q4H PRN 03/09/18 [History] Glucagon 1 mg [GlucaGen 1 MG] 1 mg IM STAT 03/09/18 [History] PANTOPRAZOLE 40 mg Tablet [Protonix 40MG Tablet] 40 mg PO QAM 03/09/18 [ History] Ubidecarenone [Coenzyme Q10] 4 cap PO BID 03/09/18 [History] Acetaminophen 325 mg [Tylenol 325 mg] 325 mg PO Q4HPRN PRN 03/16/18 [ History] Magnesium Hydroxide 30 ml [Milk of Magnesia 30 ml] 30 ml PO DAILY PRN PRN 03/16/18 [History] Nut.tx.gluc.intoler,Lac-Fr,Soy [Glucerna] 237 ml PO AC 03/16/18 [History] Ondansetron HCl 4 mg PO Q4HPRN PRN 03/16/18 [History] Hx Tetanus, Diphtheria Vaccination/Date Given: No Hx Influenza Vaccination/Date Given: No Hx Pneumococcal Vaccination/Date Given: No - Review of Systems Constitutional: No Fever, No Chills Eyes: No Symptoms Ears, Nose, & Throat: No Symptoms Respiratory: No Symptoms, No Cough, No Dyspnea Cardiac: No Symptoms, No Chest Pain, No Edema, No Syncope Abdominal/Gastrointestinal: Abdominal Pain, Diarrhea, Hematochezia, No Nausea, No Vomiting Genitourinary Symptoms: No Symptoms, No Dysuria Musculoskeletal: No Symptoms, No Back Pain, No Neck Pain Skin: No Rash Neurological: No Dizziness, No Focal Weakness, No Sensory Changes Psychological: No Symptoms Endocrine: No Symptoms All Other Systems: Reviewed and Negative - Past Medical History Pertinent Past Medical History: Yes Neurological History: Other ENT History: Cataracts Cardiac History: Arrhythmia, High Cholesterol, Hypertension Respiratory History: No Pertinent History Endocrine Medical History: Diabetes Type II Musculoskeletal History: Arthritis, Degenerative Disk Disease GI Medical History: Diverticulitis, GERD History: No Pertinent History Psycho-Social History: Anxiety, Depression Female Reproductive Disorders: No Pertinent History Other Medical History: Pacemaker, anemia, myasthenia gravis - Past Surgical History Past Surgical History: Yes Neuro Surgical History: No Pertinent History Cardiac: Pacemaker Respiratory: No Pertinent History Gastrointestinal: Appendectomy, Cholecystectomy Genitourinary: No Pertinent History Musculoskeletal: Orthopedic Surgery Female Surgical History: Hysterectomy Other Surgical History: spinal stenosis surgery, rotator cuff right arm - Social History Smoking Status: Never smoker Exposure to second hand smoke: Yes Alcohol Use: None Drug Use: none Patient Lives Alone: Yes Significant Family History: heart disease, diabetes - Nursing Vital Signs Nursing Vital Signs: Initial Vital Signs Temperature 98.2 F 03/16/18 15:26 Pulse Rate 92 H 03/16/18 15:26 Respiratory Rate 16 03/16/18 15:26 Blood Pressure 94/65 03/16/18 15:26 O2 Sat by Pulse Oximetry 94 L 03/16/18 15:26 Pain Scale Pain Intensity 7 - Physical Exam General Appearance: lethargy (SLIGHTY LETHARGIC BUT ANSWERS APPROPRIATELY) Eye Exam: PERRL/EOMI, eyes nml inspection Ears, Nose, Throat Exam: normal ENT inspection, pharynx normal, moist mucous membranes Neck Exam: normal inspection, non-tender, supple, full range of motion Respiratory Exam: normal breath sounds, lungs clear, No respiratory distress Cardiovascular Exam: regular rate/rhythm, normal heart sounds Gastrointestinal/Abdomen Exam: soft, normal bowel sounds, tenderness (OBESE, LLQ AND INFRAUMBILICAL TENDERNESS, WITH GUARDING) Back Exam: normal inspection, normal range of motion, other (1+ PRESACRAL EDEMA) , No CVA tenderness, No vertebral tenderness Extremity Exam: swelling (3+ PITTING EDEMA, BILATERAL FEET, 2 + PITTING PRETIBIAL EDEMA, 1+ EDEMA KNEES TO HIPS, 1+ PITTING UPPER EXTREMITY EDEMA, ) Neurologic Exam: oriented x 3, cooperative Skin Exam: normal color, warm, dry Lymphatic Exam: adenopathy SpO2 Interpretation: borderline oxygenation SpO2: 92 Oxygen Delivery: Room Air - CT Exams Abdomen/Pelvis CT Interpretation: Discussed w/radiologist (SIGMOID DIVERTICULITIS NOW EXTENDING TO INVOLVE THE RECTUM, NO MID ABDOMINAL ROUND AIR MEASURING 7 CM X 8.6 CM X 10 CM CONCERNING FOR BOWEL PERFORATION) Ordered Tests: Active Orders 24 hr Category Date Time Status IV Insertion STAT Care 03/16/18 15:24 Active ABDOMEN AND PELVIS W/0 CONTRAS [CT] Stat Exams 03/16/18 15:26 Completed AMYLASE Stat Lab 03/16/18 15:45 Completed CBC W DIFF Stat Lab 03/16/18 15:45 Completed CMP Stat Lab 03/16/18 15:45 Completed CULTURE,URINE Stat Lab 03/16/18 15:41 Received LIPASE Stat Lab 03/16/18 15:45 Completed Lactic Acid Stat Lab 03/16/18 15:42 Completed Manual Differential NC Stat Lab 03/16/18 15:45 Completed PROTIME WITH INR Stat Lab 03/16/18 15:45 Completed UA W/RFX UR CULTURE Stat Lab 03/16/18 15:41 Completed Medication Summary Generic Name Dose Route Start Last Admin Trade Name Freq PRN Reason Stop Dose Admin Sodium Chloride 1,000 mls @ 20 mls/hr 03/16/18 15:30 03/16/18 15:51 Sodium Chloride 0.9% 1000 Ml IV 04/15/18 15:29 20 mls/hr .Q24H XENIA Administration Levofloxacin/Dextrose 500 mg in 100 mls @ 100 mls/hr 03/16/18 18:22 Levofloxacin 500mg/100ml D5w IV 03/16/18 19:21 STAT STA Lab/Rad Data: Laboratory Result Diagrams 03/16/18 15:45 03/16/18 15:45 Laboratory Results 03/16/18 03/16/18 03/16/18 Range/Units 15:45 15:45 15:45 WBC 26.3 H* (4.0-10.5) K/mm3 RBC 4.97 (4.1-5.4) M/mm3 Hgb 15.9 (12.0-16.0) gm/dl Hct 47.5 H (35-47) % MCV 95.6 (78-100) fl MCH 32.0 (26-32) pg MCHC 33.5 (32-36) g/dl RDW 19.1 H (11.5-14.0) % Plt Count 236 (150-450) K/mm3 MPV 11.0 H (6-9.5) fl Absolute Granulocytes 25.2 H (1.4-6.9) Segmented Neutrophils 74 H (36.0-66.0) % Band Neutrophils 22 H (0.0-2.0) % Lymphocytes (Manual) 1 L (24-44) % Monocytes (Manual) 3 (0.0-12.0) % Platelet Estimate NORMAL (NORMAL) RBC Morphology ABNORMAL Polychromasia 2+ Anisocytosis 2+ PT 15.1 H (9.95-12.35) SECONDS INR 1.29 (0.8-3.0) Sodium 130 L (137-145) mmol/L Potassium 3.3 L (3.5-5.1) mmol/L Chloride 92 L (98-107) mmol/L Carbon Dioxide 31 H (22-30) mmol/L Anion Gap 10.6 (5-15) MEQ/L BUN 29 H (7-17) mg/dL Creatinine 0.43 L (0.52-1.04) mg/dL Estimated GFR > 60.0 ML/MIN Glucose 240 H (74-106) mg/dL Lactic Acid (0.4-2.0) Calcium 8.7 (8.4-10.2) mg/dL Total Bilirubin 0.90 (0.2-1.3) mg/dL AST 46 H (14-36) U/L ALT 52 H (0-35) U/L Alkaline Phosphatase 337 H (38-126) U/L Serum Total Protein 4.9 L (6.3-8.2) g/dL Albumin 2.4 L (3.5-5.0) g/dL Amylase 208 H (30-110) U/L Lipase 21 L (23-300) U/L Urine Color (YELLOW) Urine Appearance (CLEAR) Urine pH (5-6) Ur Specific [place] (1.005-1.025) Urine Protein (Negative) Urine Ketones (NEGATIVE) Urine Blood (0-5) Soham/ul Urine Nitrite (NEGATIVE) Urine Bilirubin (NEGATIVE) Urine Urobilinogen (0-1) mg/dL Ur Leukocyte Esterase (NEGATIVE) Urine WBC (Auto) (0-5) /HPF Urine RBC (Auto) (0-2) /HPF U Epithel Cells (Auto) (FEW) /HPF Urine Bacteria (Auto) (NEGATIVE) /HPF Calcium Oxalate Crystal (NEGATIVE) /HPF Urine Mucus (Auto) (NEGATIVE) /HPF Urine Yeast (Budding) (NEGATIVE) /HPF Urine Culture Reflexed (NO) Urine Glucose (NEGATIVE) mg/dL 03/16/18 03/16/18 Range/Units 15:42 15:41 WBC (4.0-10.5) K/mm3 RBC (4.1-5.4) M/mm3 Hgb (12.0-16.0) gm/dl Hct (35-47) % MCV (78-100) fl MCH (26-32) pg MCHC (32-36) g/dl RDW (11.5-14.0) % Plt Count (150-450) K/mm3 MPV (6-9.5) fl Absolute Granulocytes (1.4-6.9) Segmented Neutrophils (36.0-66.0) % Band Neutrophils (0.0-2.0) % Lymphocytes (Manual) (24-44) % Monocytes (Manual) (0.0-12.0) % Platelet Estimate (NORMAL) RBC Morphology Polychromasia Anisocytosis PT (9.95-12.35) SECONDS INR (0.8-3.0) Sodium (137-145) mmol/L Potassium (3.5-5.1) mmol/L Chloride (98-107) mmol/L Carbon Dioxide (22-30) mmol/L Anion Gap (5-15) MEQ/L BUN (7-17) mg/dL Creatinine (0.52-1.04) mg/dL Estimated GFR ML/MIN Glucose (74-106) mg/dL Lactic Acid 2.3 H (0.4-2.0) Calcium (8.4-10.2) mg/dL Total Bilirubin (0.2-1.3) mg/dL AST (14-36) U/L ALT (0-35) U/L Alkaline Phosphatase (38-126) U/L Serum Total Protein (6.3-8.2) g/dL Albumin (3.5-5.0) g/dL Amylase (30-110) U/L Lipase (23-300) U/L Urine Color YELLOW (YELLOW) Urine Appearance SLIGHTLY CLOUDY (CLEAR) Urine pH 7.0 (5-6) Ur Specific [place] 1.012 (1.005-1.025) Urine Protein 100 (Negative) Urine Ketones NEGATIVE (NEGATIVE) Urine Blood MODERATE (0-5) Soham/ul Urine Nitrite NEGATIVE (NEGATIVE) Urine Bilirubin NEGATIVE (NEGATIVE) Urine Urobilinogen 2 (0-1) mg/dL Ur Leukocyte Esterase LARGE (NEGATIVE) Urine WBC (Auto) 11-15 (0-5) /HPF Urine RBC (Auto) 16-25 (0-2) /HPF U Epithel Cells (Auto) RARE (FEW) /HPF Urine Bacteria (Auto) FEW (NEGATIVE) /HPF Calcium Oxalate Crystal 0-2 (NEGATIVE) /HPF Urine Mucus (Auto) SLIGHT (NEGATIVE) /HPF Urine Yeast (Budding) Many (NEGATIVE) /HPF Urine Culture Reflexed YES (NO) Urine Glucose NEGATIVE (NEGATIVE) mg/dL - Progress Progress Note: 03/16/18 18:32 IV BOLUS NORMAL SALINE 500ML/HR, LEVAQUIN 500MG IVPB, PATIENT RECEIVED MERMEM 1GM IVPB THIS AM AT HOME VIA PICC LINE. Discussed with : Other (DISCUSSED WITH DR BALJEET ALDRICH AT 1820 ACCEPTS TRANSFER TO [facility] VIA EMS ACLS) - Departure Departure Disposition: Transfer Clinical Impression: ACUTE SIGMOID DIVERTICULITIS/PROCTITIS, BOWEL PERFORTION Condition: Stable Critical Care Time: No Referrals: NICOLE CONLEY [Primary Care Provider] -
[2018-03-16] MEDS ORDERED: Sodium Chloride 0.9% 1000 ML 1,000 ML ONE (15:50)
[2018-03-16 15:52] LABS: Lactic Acid 2.3 (0.4-2.0)
[2018-03-16 15:55] LABS: Hematocrit 47.5 % (35-47); Hemoglobin 15.9 gm/dl (12.0-16.0); Mean Cell Volume 95.6 fl (78-100); Mean Corpuscular Hgb Concent. 33.5 g/dl (32-36); Platelet Count 236 K/mm3 (150-450); Red Blood Count 4.97 M/mm3 (4.1-5.4); Red Cell Distribution Width 19.1 % (11.5-14.0)
[2018-03-16 16:01] LABS: White Blood Count 26.3 K/mm3 (4.0-10.5)
[2018-03-16 16:08] LABS: Appearance SLIGHTLY CLOUDY (CLEAR); Bilirubin NEGATIVE (NEGATIVE); Blood MODERATE Ery/ul (0-5); Glucose NEGATIVE (NEGATIVE); Ketones NEGATIVE (NEGATIVE); Leukocyte Esterase LARGE (NEGATIVE); Nitrite NEGATIVE (NEGATIVE); Protein,Urine Dip 100 (Negative); Specific Gravity 1.012 (1.005-1.025); Urobilinogen 2 mg/dL (0-1)
[2018-03-16 16:21] LABS: BAND 22 % (0.0-2.0); Lymphocytes 1 % (24-44); Monocyte 3 % (0.0-12.0); Neutrophils 74 % (36.0-66.0); Platelet Estimate NORMAL (NORMAL); Total Cells Counted 100
[2018-03-16 16:23] LABS: ANISOCYTOSIS 2+; Polychromasia 2+
[2018-03-16 16:24] LABS: Granulocyte Absolute (ANC) 25.2 (1.4-6.9)
[2018-03-16 16:28] LABS: ALBUMIN 2.4 g/dL (3.5-5.0); ALKALINE PHOSPHATASE 337 U/L (38-126); AMYLASE 208 U/L (30-110); ANION GAP 10.6 MEQ/L (5-15); BLOOD UREA NITROGEN 29 mg/dL (7-17); CHLORIDE 92 mmol/L (98-107); Calcium 8.7 mg/dL (8.4-10.2); Carbon Dioxide 31 mmol/L (22-30); Creatinine 1 0.43 mg/dL (0.52-1.04); Glucose 240 mg/dL (74-106); LIPASE 21 U/L (23-300); Potassium 3.3 mmol/L (3.5-5.1); SGOT/AST 46 U/L (14-36); SGPT/ALT 52 U/L (0-35); SODIUM 130 mmol/L (137-145); Total Protein 4.9 g/dL (6.3-8.2)
--- NOTE | 2018-03-16 16:56 | XRAY ---
Indication: Abdomen pain. Multiple contiguous axial images obtained through the abdomen and pelvis without contrast as ordered. Comparison: February 13, 2018. Lung bases demonstrates new small bibasilar effusions with compressive atelectasis, left greater than right. Heart is not enlarged. Stomach demonstrates intraluminal radiopacities presumed ingested medication/bismuth. Again minimal descending/sigmoid diverticulosis with mild sigmoid diverticulitis. Rectum now demonstrates mild pericolonic stranding favoring mild proctitis. Mid pelvis demonstrates new round air measuring 7.0 x 8.6 x 10 cm concerning for bowel perforation. No free fluid. Urinary bladder demonstrates new intraluminal air and Rivera balloon catheter. Stable inferior right renal cyst, calcified splenic granulomas, cholecystectomy, appendectomy, and hysterectomy. Remaining liver, pancreas, spleen, adrenal glands, kidneys, and ureters appear unremarkable for noncontrast exam. There remains mild aortoiliac calcifications without AAA. Osseous structures again demonstrates multilevel degenerative spondylosis, scoliosis, and L4-L5 fusion surgery with intact spinal hardware. Impression: 1. Again sigmoid diverticulitis now extending to involve the rectum. New mid abdomen free air concerning for bowel perforation. 2. New Rivera catheter in situ. 3. Stable right renal cyst. 4. New bibasilar effusions without cardiomegaly. CTDI 23.63
[2018-03-16 17:56] LABS: INR 1.29 (0.8-3.0)
[2018-03-16] MEDS ORDERED: Levofloxacin 500MG/100ML D5W 500 MG/100 ML BAG IV STA (18:22)
[2018-03-16 18:23] VITALS: BP 100/55; PULSE 83; O2SAT 92
[2018-03-16] MEDS ORDERED: Levofloxacin 500MG/100ML D5W 500 MG/100 ML BAG IV ONE (18:26)
== END 2018-03-16 19:00 | disposition short-term general hospital (02) ==
LOC: ED 15:18
DX: K57.20 Diverticulitis of large intestine with perforation and abscess without bleeding (principal); R19.7 Diarrhea, unspecified; R53.1 Weakness; K92.1 Melena; Z79.899 Other long term (current) drug therapy
CPT/HCPCS: 36000; 36415; 74176; 80053; 81001; 82150; 83605; 83690; 85025; 85610; 87086; 96360; 96361; 96365; 99285; J1956

== ENCOUNTER 2018-04-20 10:27 | Emergency (ER) | payer MEDICARE, BC ==
[2018-04-20] MEDS ORDERED: Sodium Chloride 0.9% 1000 ML 1,000 ML IV STA (10:45)
--- NOTE | 2018-04-20 10:50 | ERPHSYRPT ---
- History of Present Illness Time Seen by Provider: 04/20/18 10:45 Source: patient, family Physician History: PATIENT WITH A HISTORY OF RECURRENT SIGMOID DIVERTICULITIS, PROCTITIS, TYPE 2 DIABETES, MYSTHENA GRAVIS, CHRONIC ATRIAL FIBRILLATION, AND PACEMAKER HAS HAD A PICC LINE INSERTION SINCE 03/14/2018 WITH INTRAVENOUS MERRIPEN. HAS HAD MENTAL STATUS CHANGES, EPISODES OF CONFUSION PER JAIL STAFF OVER THE PAST 24 HOURS. Timing/Duration: today Severity: moderate Character of Deficits: other (ALTERED MENTAL STATUS) Deficits: no difficulties Baseline/Normal Cognition: alert/disoriented to time Current Cognition: alert/disoriented to time Associated Symptoms: confusion Allergies/Adverse Reactions: meperidine HCl [From Demerol] Allergy (Verified 10/15/17 11:08) metronidazole [From Flagyl] Allergy (Verified 10/15/17 11:08) Penicillins Allergy (Verified 10/15/17 11:08) shellfish derived Allergy (Verified 03/16/18 15:42) hydralazine Adverse Reaction (Verified 10/15/17 11:08) CRAB Allergy (Uncoded 10/15/17 11:08) Home Medications: Montelukast Sodium 10 mg PO DAILY 12/19/14 [History] Apixaban [Eliquis 5 mg Tablet] 5 mg PO BID 06/24/16 [History] Alprazolam 0.25 mg [xanAX 0.25 MG] 0.25 mg PO Q8H PRN 08/22/17 [History] Simvastatin 40 mg [Zocor 40 mg] 20 mg PO DAILY 08/22/17 [History] Aspirin 81 mg PO DAILY 02/13/18 [History] Calcium Citrate/Vitamin D3 [Citracal + D Caplet] 1 tab PO DAILY 02/13/18 [ History] Cholecalciferol (Vitamin D3) [Vitamin D3] 1,000 unit PO DAILY 02/13/18 [History] Folic Acid 1 tab PO DAILY 02/13/18 [History] Prednisone 20 mg [Deltasone 20 mg] 30 mg PO DAILY 02/13/18 [History] Thiamine HCl 1 tab PO DAILY 02/13/18 [History] Acetaminophen 325 mg [Tylenol 325 mg] 2 tab PO Q4H PRN 03/09/18 [History] Glucagon 1 mg [GlucaGen 1 MG] 1 mg IM STAT 03/09/18 [History] PANTOPRAZOLE 40 mg Tablet [Protonix 40MG Tablet] 40 mg PO QAM 03/09/18 [ History] Ubidecarenone [Coenzyme Q10] 4 cap PO BID 03/09/18 [History] Acetaminophen 325 mg [Tylenol 325 mg] 325 mg PO Q4HPRN PRN 03/16/18 [ History] Magnesium Hydroxide 30 ml [Milk of Magnesia 30 ml] 30 ml PO DAILY PRN PRN 03/16/18 [History] Nut.tx.gluc.intoler,Lac-Fr,Soy [Glucerna] 237 ml PO AC 03/16/18 [History] Ondansetron HCl 4 mg PO Q4HPRN PRN 03/16/18 [History] Hx Tetanus, Diphtheria Vaccination/Date Given: No Hx Influenza Vaccination/Date Given: No Hx Pneumococcal Vaccination/Date Given: No - Review of Systems Constitutional: Fatigue, Weakness, No Fever, No Chills Eyes: No Symptoms Ears, Nose, & Throat: No Symptoms Respiratory: No Symptoms, No Cough, No Dyspnea Cardiac: No Symptoms, No Chest Pain, No Edema, No Syncope Abdominal/Gastrointestinal: No Abdominal Pain, No Nausea, No Vomiting, No Diarrhea Genitourinary Symptoms: No Symptoms, No Dysuria Musculoskeletal: No Back Pain, No Neck Pain Skin: No Rash Neurological: Other (CONFUSION), No Dizziness, No Focal Weakness, No Sensory Changes Psychological: No Symptoms Endocrine: No Symptoms All Other Systems: Reviewed and Negative - Past Medical History Pertinent Past Medical History: Yes Neurological History: Other ENT History: Cataracts Cardiac History: Arrhythmia, High Cholesterol, Hypertension Respiratory History: No Pertinent History Endocrine Medical History: Diabetes Type II Musculoskeletal History: Arthritis, Degenerative Disk Disease GI Medical History: Diverticulitis, GERD History: No Pertinent History Psycho-Social History: Anxiety, Depression Female Reproductive Disorders: No Pertinent History Other Medical History: Pacemaker, anemia, myasthenia gravis - Past Surgical History Past Surgical History: Yes Neuro Surgical History: No Pertinent History Cardiac: Pacemaker Respiratory: No Pertinent History Gastrointestinal: Appendectomy, Cholecystectomy Genitourinary: No Pertinent History Musculoskeletal: Orthopedic Surgery Female Surgical History: Hysterectomy Other Surgical History: spinal stenosis surgery, rotator cuff right arm - Social History Smoking Status: Never smoker Exposure to second hand smoke: Yes Alcohol Use: None Drug Use: none Patient Lives Alone: Yes Significant Family History: heart disease, diabetes - Nursing Vital Signs Nursing Vital Signs: Initial Vital Signs Temperature 99.3 F 04/20/18 10:49 Pulse Rate 91 H 04/20/18 10:49 Respiratory Rate 22 04/20/18 10:49 Blood Pressure 109/68 04/20/18 10:49 O2 Sat by Pulse Oximetry 98 04/20/18 10:49 Pain Scale Pain Intensity 0 - Verónica Coma Scale Best Eye Response (Verónica): (4) open spontaneously Best Verbal Response ([place]): (5) oriented Best Motor Response (Verónica): (6) obeys commands [place] Total: 15 - Physical Exam General Appearance: no apparent distress Eye Exam: bilateral eye: normal inspection, PERRL, EOMI Ears, Nose, Throat Exam: normal ENT inspection, moist mucous membranes Neck Exam: normal inspection, non-tender, supple Respiratory: normal breath sounds, lungs clear, airway intact, No respiratory distress Cardiovascular: normal heart sounds, irregular Gastrointestinal: soft, normal bowel sounds Back Exam: normal range of motion, other (THERE IS A SACRAL DECUBITUS 2.5CM X 6CM WITH 4 CM IN DEPTH, WITH SURROUNDING SUPERFICIAL DECUBITUS BILAT BUTTOCK) Extremity Exam: normal range of motion, swelling (2+ PITTING PRETIBIAL EDEMA) Peripheral Pulses: carotid (R): 2+, carotid (L): 2+, femoral (R): 2+, femoral (L ): 2+, dorsalis-pedis (R): 2+, dorsalis-pedis (L): 2+ 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 COLONIC DIVERTICULOSIS AND RIGHT RENAL CYST, NO NEW INTR-ABDOMINAL /PELVIC ABNORMALITIES) Head CT Interpretation: Discussed w/radiologist, No/Intracranial Hemorrhag Ordered Tests: Active Orders 24 hr Category Date Time Status Orthopedic Technician STAT Care 04/20/18 10:47 Active EKG-ER Only STAT Care 04/20/18 10:45 Active Rivera [Catheter-[place] Rivera] STAT Care 04/20/18 11:59 Active IV Insertion STAT Care 04/20/18 11:59 Active Oxygen-ED Only NASAL CANNULA 2 lpm Care 04/20/18 10:45 Active Wound Care STAT Care 04/20/18 11:54 Active ABDOMEN AND PELVIS W/0 CONTRAS [CT] Stat Exams 04/20/18 10:48 Completed CHEST 1 VIEW (PORTABLE) Stat Exams 04/20/18 10:46 Taken HEAD WITHOUT CONTRAST [CT] Stat Exams 04/20/18 10:46 Completed AMYLASE Stat Lab 04/20/18 11:20 Completed BLOOD CULTURE Stat Lab 04/20/18 11:20 Received CBC W DIFF Stat Lab 04/20/18 11:15 Completed CMP Stat Lab 04/20/18 11:15 Completed CULTURE,URINE Stat Lab 04/20/18 11:59 Received LIPASE Stat Lab 04/20/18 11:20 Completed Lactic Acid Stat Lab 04/20/18 10:45 Completed Lactic Acid Stat Lab 04/20/18 13:21 Ordered Manual Differential NC Stat Lab 04/20/18 11:15 Completed PROTIME WITH INR Stat Lab 04/20/18 11:30 Completed TROPONIN Q3H Lab 04/20/18 11:20 Completed TROPONIN Q3H Lab 04/20/18 14:00 Ordered TROPONIN Q3H Lab 04/20/18 17:00 Ordered TROPONIN Q3H Lab 04/20/18 20:00 Ordered TROPONIN Q3H Lab 04/20/18 23:00 Ordered UA W/RFX UR CULTURE Stat Lab 04/20/18 11:59 Completed VENOUS BLOOD GAS Stat Lab 04/20/18 10:49 Completed Medication Summary Discontinued Medications Generic Name Dose Route Start Last Admin Trade Name Freq PRN Reason Stop Dose Admin Sodium Chloride 1,000 mls @ 999 mls/hr 04/20/18 10:45 04/20/18 13:23 Sodium Chloride 0.9% 1000 Ml IV 04/20/18 11:45 Infused .Q1H1M STA Infusion Sodium Chloride Confirm 04/20/18 11:13 Sodium Chloride 0.9% 1000 Ml Administered 04/20/18 11:14 Dose 1,000 mls @ ud .ROUTE .STK-MED ONE Sodium Chloride Confirm 04/20/18 12:54 Sodium Chloride 0.9% 1000 Ml Administered 04/20/18 12:55 Dose 1,000 mls @ ud .ROUTE .STK-MED ONE Lab/Rad Data: Laboratory Result Diagrams 04/20/18 11:15 04/20/18 11:15 Laboratory Results 04/20/18 04/20/18 04/20/18 Range/Units 11:59 11:30 11:20 WBC (4.0-10.5) K/mm3 RBC (4.1-5.4) M/mm3 Hgb (12.0-16.0) gm/dl Hct (35-47) % MCV (78-100) fl MCH (26-32) pg MCHC (32-36) g/dl RDW (11.5-14.0) % Plt Count (150-450) K/mm3 MPV (6-9.5) fl Absolute Granulocytes (1.4-6.9) Segmented Neutrophils (36.0-66.0) % Band Neutrophils (0.0-2.0) % Lymphocytes (Manual) (24-44) % Monocytes (Manual) (0.0-12.0) % Metamyelocytes % Nucleated RBCs % Platelet Estimate (NORMAL) RBC Morphology Polychromasia Anisocytosis Macrocytosis Stomatocytes PT 17.2 H (9.95-12.35) SECONDS INR 1.47 (0.8-3.0) pO2/FiO2 Ratio % VBG pH (7.32-7.42) VBG pCO2 at Pat Temp (42-55) mm/Hg VBG pO2 at Pat Temp (25-40) mm/Hg VBG HCO3 (22-28) meq/L VBG O2 Sat (Angela) (95-100) VBG Base Excess (-2.0-2.0) VBG Hemoglobin VBG Carboxyhemoglobin (0.0-6.9) % T HGB POC Potassium (3.5-5.1) Sodium (137-145) mmol/L Potassium (3.5-5.1) mmol/L Chloride (98-107) mmol/L Carbon Dioxide (22-30) mmol/L Anion Gap (5-15) MEQ/L BUN (7-17) mg/dL Creatinine (0.52-1.04) mg/dL Estimated GFR ML/MIN Glucose (74-106) mg/dL Lactic Acid (0.4-2.0) Calcium (8.4-10.2) mg/dL Total Bilirubin (0.2-1.3) mg/dL AST (14-36) U/L ALT (0-35) U/L Alkaline Phosphatase (38-126) U/L Troponin I 0.035 H (0.000-0.034) ng/mL Serum Total Protein (6.3-8.2) g/dL Albumin (3.5-5.0) g/dL Amylase (30-110) U/L Lipase (23-300) U/L Urine Color STRAW (YELLOW) Urine Appearance CLEAR (CLEAR) Urine pH 8.0 (5-6) Ur Specific Newell 1.003 (1.005-1.025) Urine Protein NEGATIVE (Negative) Urine Ketones NEGATIVE (NEGATIVE) Urine Blood MODERATE (0-5) Soham/ul Urine Nitrite NEGATIVE (NEGATIVE) Urine Bilirubin NEGATIVE (NEGATIVE) Urine Urobilinogen NEGATIVE (0-1) mg/dL Ur Leukocyte Esterase SMALL (NEGATIVE) Urine WBC (Auto) 16-25 (0-5) /HPF Urine RBC (Auto) 26-50 (0-2) /HPF U Epithel Cells (Auto) RARE (FEW) /HPF Urine Bacteria (Auto) NONE SEEN (NEGATIVE) /HPF Urine Mucus (Auto) SLIGHT (NEGATIVE) /HPF Urine Yeast (Budding) Moderate (NEGATIVE) /HPF Urine Culture Reflexed YES (NO) Urine Glucose >=500 (NEGATIVE) mg/dL 04/20/18 04/20/18 04/20/18 Range/Units 11:20 11:15 11:15 WBC 10.8 H (4.0-10.5) K/mm3 RBC 3.12 L (4.1-5.4) M/mm3 Hgb 10.5 L (12.0-16.0) gm/dl Hct 33.8 L (35-47) % MCV 108.3 H (78-100) fl MCH 33.6 H (26-32) pg MCHC 31.1 L (32-36) g/dl RDW 19.1 H (11.5-14.0) % Plt Count 340 (150-450) K/mm3 MPV 9.6 H (6-9.5) fl Absolute Granulocytes 9.65 H (1.4-6.9) Segmented Neutrophils 78 H (36.0-66.0) % Band Neutrophils 11 H (0.0-2.0) % Lymphocytes (Manual) 7 L (24-44) % Monocytes (Manual) 3 (0.0-12.0) % Metamyelocytes 1 % Nucleated RBCs 1 % Platelet Estimate NORMAL (NORMAL) RBC Morphology ABNORMAL Polychromasia 2+ Anisocytosis 1+ Macrocytosis 1+ Stomatocytes 1+ PT (9.95-12.35) SECONDS INR (0.8-3.0) pO2/FiO2 Ratio % VBG pH (7.32-7.42) VBG pCO2 at Pat Temp (42-55) mm/Hg VBG pO2 at Pat Temp (25-40) mm/Hg VBG HCO3 (22-28) meq/L VBG O2 Sat (Angela) (95-100) VBG Base Excess (-2.0-2.0) VBG Hemoglobin VBG Carboxyhemoglobin (0.0-6.9) % T HGB POC Potassium (3.5-5.1) Sodium 129 L (137-145) mmol/L Potassium 3.4 L (3.5-5.1) mmol/L Chloride 90 L (98-107) mmol/L Carbon Dioxide 35 H (22-30) mmol/L Anion Gap 7.7 (5-15) MEQ/L BUN 26 H (7-17) mg/dL Creatinine 0.32 L (0.52-1.04) mg/dL Estimated GFR > 60.0 ML/MIN Glucose 312 H (74-106) mg/dL Lactic Acid (0.4-2.0) Calcium 7.9 L (8.4-10.2) mg/dL Total Bilirubin 0.50 (0.2-1.3) mg/dL AST 44 H (14-36) U/L ALT 39 H (0-35) U/L Alkaline Phosphatase 299 H (38-126) U/L Troponin I (0.000-0.034) ng/mL Serum Total Protein 4.5 L (6.3-8.2) g/dL Albumin 2.2 L (3.5-5.0) g/dL Amylase 83 (30-110) U/L Lipase 28 (23-300) U/L Urine Color (YELLOW) Urine Appearance (CLEAR) Urine pH (5-6) Ur Specific [place]ell (1.005-1.025) Urine Protein (Negative) Urine Ketones (NEGATIVE) Urine Blood (0-5) Soham/ul Urine Nitrite (NEGATIVE) Urine Bilirubin (NEGATIVE) Urine Urobilinogen (0-1) mg/dL Ur Leukocyte Esterase (NEGATIVE) Urine WBC (Auto) (0-5) /HPF Urine RBC (Auto) (0-2) /HPF U Epithel Cells (Auto) (FEW) /HPF Urine Bacteria (Auto) (NEGATIVE) /HPF Urine Mucus (Auto) (NEGATIVE) /HPF Urine Yeast (Budding) (NEGATIVE) /HPF Urine Culture Reflexed (NO) Urine Glucose (NEGATIVE) mg/dL 04/20/18 04/20/18 Range/Units 10:49 10:45 WBC (4.0-10.5) K/mm3 RBC (4.1-5.4) M/mm3 Hgb (12.0-16.0) gm/dl Hct (35-47) % MCV (78-100) fl MCH (26-32) pg MCHC (32-36) g/dl RDW (11.5-14.0) % Plt Count (150-450) K/mm3 MPV (6-9.5) fl Absolute Granulocytes (1.4-6.9) Segmented Neutrophils (36.0-66.0) % Band Neutrophils (0.0-2.0) % Lymphocytes (Manual) (24-44) % Monocytes (Manual) (0.0-12.0) % Metamyelocytes % Nucleated RBCs % Platelet Estimate (NORMAL) RBC Morphology Polychromasia Anisocytosis Macrocytosis Stomatocytes PT (9.95-12.35) SECONDS INR (0.8-3.0) pO2/FiO2 Ratio 21.0 % VBG pH 7.49 H (7.32-7.42) VBG pCO2 at Pat Temp 49 (42-55) mm/Hg VBG pO2 at Pat Temp 25 (25-40) mm/Hg VBG HCO3 37.3 H* (22-28) meq/L VBG O2 Sat (Angela) 48.4 L (95-100) VBG Base Excess 12.3 H (-2.0-2.0) VBG Hemoglobin 11.2 VBG Carboxyhemoglobin 1.9 (0.0-6.9) % T HGB POC Potassium 4.2 (3.5-5.1) Sodium (137-145) mmol/L Potassium (3.5-5.1) mmol/L Chloride (98-107) mmol/L Carbon Dioxide (22-30) mmol/L Anion Gap (5-15) MEQ/L BUN (7-17) mg/dL Creatinine (0.52-1.04) mg/dL Estimated GFR ML/MIN Glucose (74-106) mg/dL Lactic Acid 3.6 H (0.4-2.0) Calcium (8.4-10.2) mg/dL Total Bilirubin (0.2-1.3) mg/dL AST (14-36) U/L ALT (0-35) U/L Alkaline Phosphatase (38-126) U/L Troponin I (0.000-0.034) ng/mL Serum Total Protein (6.3-8.2) g/dL Albumin (3.5-5.0) g/dL Amylase (30-110) U/L Lipase (23-300) U/L Urine Color (YELLOW) Urine Appearance (CLEAR) Urine pH (5-6) Ur Specific Newell (1.005-1.025) Urine Protein (Negative) Urine Ketones (NEGATIVE) Urine Blood (0-5) Soham/ul Urine Nitrite (NEGATIVE) Urine Bilirubin (NEGATIVE) Urine Urobilinogen (0-1) mg/dL Ur Leukocyte Esterase (NEGATIVE) Urine WBC (Auto) (0-5) /HPF Urine RBC (Auto) (0-2) /HPF U Epithel Cells (Auto) (FEW) /HPF Urine Bacteria (Auto) (NEGATIVE) /HPF Urine Mucus (Auto) (NEGATIVE) /HPF Urine Yeast (Budding) (NEGATIVE) /HPF Urine Culture Reflexed (NO) Urine Glucose (NEGATIVE) mg/dL - Progress Progress Note: 04/20/18 11:21 IV NORMAL SALINE 1 LITER/HR, ALL LAB TEST REVIEW, NORMAL HEAD CT SCAN, ABDOMINAL PELVIC CT SHOWS NO NEW FINDINGS, PELVIC MASS APPEARS SMALLER DISCUSSED RESULTS OF FINDINGS WITH DR CONLEY, WILL DISCHARGE HOME, HOLD ELIQUIS AND ASPRIN AND CONTINUE MERRIPEN ANTIBIOTICS VIA PICC LINE 04/20/18 14:08 Counseled pt/family regarding: lab results, diagnosis, need for follow-up, rad results - Departure Time of Disposition: 14:16 Departure Disposition: Home Clinical Impression: DEMENTIA, CHRONIC PELVIC MASS, CHRONIC RECURRENT URINARY TRACT INFECTIO Condition: Stable Critical Care Time: No Referrals: YSABEL COLLINS [Primary Care Provider] - Additional Instructions: DISCONTINUE ELIQUIS AND ASPIRIN UNTIL EVALUATED BY PRIMARY CARE PROVIDER. CONTINUE ALL CURRENT MEDICATIONS AND INTRAVENOUS ANTIBIOTICS.
[2018-04-20] MEDS ORDERED: Sodium Chloride 0.9% 1000 ML 1,000 ML ONE ×2 (11:13→12:54)
[2018-04-20 11:20] LABS: VBG BASE EXCESS 12.3 (-2.0-2.0); VBG CARBOXYHEMOGLOBIN 1.9 % T HGB (0.0-6.9); VBG HCO3- 37.3 meq/L (22-28); VBG HEMOGLOBIN 11.2; VBG O2 SATURATION 48.4 (95-100); VBG POTASSIUM 4.2 (3.5-5.1); VBG pH 7.49 (7.32-7.42)
[2018-04-20 11:21] LABS: Lactic Acid 3.6 (0.4-2.0)
[2018-04-20 11:33] LABS: Hematocrit 33.8 % (35-47); Hemoglobin 10.5 gm/dl (12.0-16.0); Mean Cell Volume 108.3 fl (78-100); Mean Corpuscular Hemoglobin 33.6 pg (26-32); Mean Corpuscular Hgb Concent. 31.1 g/dl (32-36); Mean Platelet Volume 9.6 fl (6-9.5); Platelet Count 340 K/mm3 (150-450); Red Blood Count 3.12 M/mm3 (4.1-5.4); Red Cell Distribution Width 19.1 % (11.5-14.0); White Blood Count 10.8 K/mm3 (4.0-10.5)
[2018-04-20 11:46] LABS: INR 1.47 (0.8-3.0)
[2018-04-20 11:52] LABS: AMYLASE 83 U/L (30-110); LIPASE 28 U/L (23-300)
[2018-04-20 11:52] LABS: BAND 11 % (0.0-2.0); Lymphocytes 7 % (24-44); Metamyelocyte 1 %; Monocyte 3 % (0.0-12.0); Neutrophils 78 % (36.0-66.0); Nucleated Red Blood Cell 1 %; Total Cells Counted 100
[2018-04-20 11:55] LABS: ANISOCYTOSIS 1+; Macrocytosis 1+; Platelet Estimate NORMAL (NORMAL); Polychromasia 2+
[2018-04-20 11:56] LABS: ALBUMIN 2.2 g/dL (3.5-5.0); ALKALINE PHOSPHATASE 299 U/L (38-126); ANION GAP 7.7 MEQ/L (5-15); BLOOD UREA NITROGEN 26 mg/dL (7-17); CHLORIDE 90 mmol/L (98-107); Calcium 7.9 mg/dL (8.4-10.2); Carbon Dioxide 35 mmol/L (22-30); Creatinine 1 0.32 mg/dL (0.52-1.04); Glucose 312 mg/dL (74-106); Potassium 3.4 mmol/L (3.5-5.1); SGOT/AST 44 U/L (14-36); SGPT/ALT 39 U/L (0-35); SODIUM 129 mmol/L (137-145); Total Protein 4.5 g/dL (6.3-8.2)
[2018-04-20 11:59] LABS: Granulocyte Absolute (ANC) 9.65 (1.4-6.9); Stomatocyte 1+
[2018-04-20 12:20] LABS: Appearance CLEAR (CLEAR); Bilirubin NEGATIVE (NEGATIVE); Blood MODERATE Ery/ul (0-5); Glucose >=500 mg/dL (NEGATIVE); Ketones NEGATIVE (NEGATIVE); Leukocyte Esterase SMALL (NEGATIVE); Nitrite NEGATIVE (NEGATIVE); Protein,Urine Dip NEGATIVE (Negative); Specific Gravity 1.003 (1.005-1.025); Urobilinogen NEGATIVE mg/dL (0-1)
--- NOTE | 2018-04-20 12:47 | XRAY ---
Indication: Confusion. Multiple contiguous axial images obtained through the head without contrast. Comparison: February 22 and March 09 2018. Stable age appropriate global atrophy and moderate periventricular degenerative micro-ischemia. Again no acute intracranial hemorrhage, abnormal extra-axial fluid collection, or mass effect. Fourth ventricle is midline without hydrocephalus. Bony calvarium intact. Visualized paranasal sinuses and mastoid air cells are clear. Impression: Continued stable nonacute senile brain. CTDI 70.38
--- NOTE | 2018-04-20 12:57 | XRAY ---
Indication: Abdomen pain. History diverticulitis. Multiple contiguous axial images obtained through the abdomen and pelvis without contrast as ordered. Comparison: March 16 and April 17, 2018. Lung bases demonstrates increasing small bibasilar pleural effusions with dependent atelectasis. Heart is not enlarged. Noncontrasted stomach and bowel loops appear nonobstructed. Again scattered descending and sigmoid diverticulosis. Previous walled off abscess with tiny fluid leveling appears slightly smaller today measuring 6.5 x 7.6 cm in greatest axial dimension. I measure this to be previously previously 7.6 x 7.8 cm. Stable right renal cyst, calcified splenic granulomas, cholecystectomy, appendectomy, hysterectomy, and a Rivera catheter. Remaining liver, pancreas, spleen, adrenal glands, kidneys, and ureters appear unremarkable for noncontrast exam. Stable mild aortoiliac calcifications without AAA. Osseous structures again demonstrates multilevel degenerative spondylosis, scoliosis, and L4-L5 fusion surgery with intact spinal hardware. Impression: 1. Pelvic walled off abscess appears slightly smaller. 2. Stable colonic diverticulosis and right renal cyst. 3. No new intra-abdominal/pelvic abnormalities on this noncontrast exam. 4. Increasing bibasilar pleural effusions without cardiomegaly. CT DI 23.68
[2018-04-20 14:10] VITALS: PULSE 82
--- NOTE | 2018-04-20 14:19 | XRAY ---
Indication: Cough. Comparison: March 09, 2018. Portable chest remains clear again with a few tiny incidental calcified granulomas. Heart is not enlarged again with left-sided dual-lead pacemaker. New right arm PICC line with tip projecting over SVC. Descending aorta remains tortuous. Bony thorax intact again with mild osteopenia and degenerative changes. Impression: New right arm PICC line in good position. Remaining chest nonacute again with chronic features.
[2018-04-20 15:00] VITALS: BP 94/65; O2SAT 94
== END 2018-04-20 15:37 | disposition home or self-care (01) ==
LOC: ED 10:27
DX: F03.90 Unspecified dementia, unspecified severity, without behavioral disturbance, psychotic disturbance, mood disturbance, and anxiety (principal); R19.00 Intra-abdominal and pelvic swelling, mass and lump, unspecified site; N39.0 Urinary tract infection, site not specified; L89.159 Pressure ulcer of sacral region, unspecified stage; L89.329 Pressure ulcer of left buttock, unspecified stage; L89.319 Pressure ulcer of right buttock, unspecified stage; I48.91 Unspecified atrial fibrillation; Z95.0 Presence of cardiac pacemaker; Z79.899 Other long term (current) drug therapy; K57.30 Diverticulosis of large intestine without perforation or abscess without bleeding; Z79.01 Long term (current) use of anticoagulants
CPT/HCPCS: 36000; 36415; 51702; 70450; 71045; 74176; 80053; 81001; 82150; 82805; 83605; 83690; 84484; 85025; 85610; 87040; 87086; 93005; 93041; 99285; J1642